=== PATIENT | female | born 1970 | race Caucasian/White ===

== ENCOUNTER 2017-06-09 13:57 | Emergency (ER) | payer OTHER ==
[~2017-06-09] VITALS: Ht 165.1 cm; Wt 145.3 kg
[2017-06-09 14:06] VITALS: TEMP 38.5; Ht 165.1 cm; Wt 145.3 kg
[2017-06-09 14:20] VITALS: O2SAT 95
[2017-06-09] MEDS ORDERED: CEFTRIAXONE SOD INJ 1 GM ADDVIAL IV STA (14:35)
[2017-06-09] MEDS ORDERED: ACETAMINOPHEN 500 MG TAB PO STA (14:35)
[2017-06-09 14:53] LABS: BASO % 0.1 %; BASO ABS # 0.01 K/uL (0-0.2); COMPLETE YES; HEMATOCRIT 37.7 % (37-47); IG% 0.3 %; LYMPH % 4.6 %; LYMPH ABS # 0.68 K/uL (1.2-3.4); MEAN CELL VOLUME 85.5 fL (80-100); MEAN CORPUSCULAR HEMOGLOBIN 28.1 pg (25-34); MEAN CORPUSCULAR HGB CONC 32.9 g/dl (32-36); MONO % 4.2 %; NEUT % 90.8 %; PLATELET COUNT 277 K/uL (130-400); RED BLOOD COUNT 4.41 M/uL (4.2-5.4); WHITE BLOOD COUNT 14.85 K/uL (4.8-10.8)
[2017-06-09 15:06] LABS: BUN/CREATININE RATIO 21.7 (10-20); CALCIUM 8.9 mg/dl (8.5-10.1); CREATININE 0.64 mg/dl (0.60-1.20); POTASSIUM 3.7 mmol/L (3.5-5.1)
--- NOTE | 2017-06-09 16:23 | DIAGNOSTIC IMAGING REPORT ---
RIGHT LOWER EXTREMITY VENOUS DOPPLER HISTORY: right leg pain and swelling COMPARISON STUDY: Venous Doppler 11/21/2013. FINDINGS: There is normal compressibility, flow, and augmentation within the right lower extremity deep venous system. A 4.3 x 2.8 x 1.5 cm popliteal cyst. IMPRESSION: No DVT within the right lower extremity Electronically signed by: Chang Goode M.D. 06/09/2017 4:22 PM Dictated Date/Time: 06/09/2017 4:15 PM
[2017-06-09] MEDS ORDERED: CEPH500C PO (16:45)
[2017-06-09] MEDS ORDERED: IBUPROFEN 600 MG TAB PO STA (16:45)
[2017-06-09 17:11] VITALS: BP 132/94; PULSE 97; O2SAT 96
--- NOTE | 2017-06-09 18:02 | EMERGENCY ROOM VISIT NOTE ---
History Report prepared by Mat: Yamil Roy Under the Supervision of: Dr. Salinas Grace M.D. First contact with patient: 14:18 Chief Complaint: SWELLING TO EXTREMITY Stated Complaint: SWOLLEN/REDNESS TG RT LEG History of Present Illness The patient is a 46 year old female who presents to the Emergency Room with complaints of right lower leg swelling that began this morning. She woke up this morning and her leg suddenly swelled and was causing her pain. Normally, her leg is not red or swollen. She denies any injury or trauma to the leg. In triage, the patient was found to be febrile. Pt denies LOC, headache, chills, diaphoresis, visual changes, neck pain, chest pain, breathing difficulties, nausea, vomiting, abdominal pain, back pain, melena, hematochezia, urinary symptoms, numbness, weakness, lymphadenopathy, rash, or other complaints. She has a family history of blood clots, but not a personal history. She does not have a PCP and denies any medical problems. She does not take any medications. She notes that she felt mildly dizzy when she came into the hospital, but she is not currently dizzy. Source of History: patient Onset: this morning Position: leg (right) Symptom Intensity: moderate Quality: other (Swelling) Timing: constant Associated Symptoms: + fevers Note: She is having some right leg pain as well. Review of Systems See HPI for pertinent positives and negatives. A total of ten systems were reviewed and were otherwise negative. Past Medical & Surgical Medical Problems: (1) Obesity Family History Blood clots Social History Smoking Status: Never Smoker Alcohol Use: none Occupation Status: employed Current/Historical Medications Scheduled Cephalexin Monohydrate (Keflex), 500 MG PO QID Allergies Coded Allergies: Penicillins (Verified Allergy, Unknown, "ACTED FUNNY" A CHILD, 06/09/17 ) Physical Exam Vital Signs Date Time Temp Pulse Resp B/P (MAP) Pulse Ox O2 Delivery O2 Flow Rate FiO2 06/09/17 17:11 97 16 132/94 96 Room Air 06/09/17 15:13 106 22 144/95 98 Room Air 06/09/17 14:20 95 Room Air 06/09/17 14:19 118 06/09/17 14:18 115 22 158/88 100 Room Air 06/09/17 14:06 38.5 115 22 153/73 96 Room Air Physical Exam GENERAL: Awake, alert, well-appearing, in no distress HENT: Normocephalic, atraumatic. Oropharynx unremarkable. EYES: Normal conjunctiva. Sclera non-icteric. NECK: Supple. No nuchal rigidity. FROM. No JVD. RESPIRATORY: Clear to auscultation. CARDIAC: Tachycardic rate, normal rhythm. Extremities warm and well perfused. Pulses equal. ABDOMEN: Soft, non-distended. No tenderness to palpation. No rebound or guarding. No masses. RECTAL: Deferred. MUSCULOSKELETAL: Chest examination reveals no tenderness. The back is symmetrical on inspection without obvious abnormality. There is no CVA tenderness to palpation. No joint edema. LOWER EXTREMITIES: There is swelling, tenderness, redness, and warmth to the right lower leg. NEURO: Normal sensorium. No sensory or motor deficits noted. SKIN: No rash or jaundice noted. Medical Decision & Procedures ER Provider Diagnostic Interpretation: Radiology results as stated below per my review and radiologist interpretation: RIGHT LOWER EXTREMITY VENOUS DOPPLER HISTORY: right leg pain and swelling COMPARISON STUDY: Venous Doppler 11/21/2013. FINDINGS: There is normal compressibility, flow, and augmentation within the right lower extremity deep venous system. A 4.3 x 2.8 x 1.5 cm popliteal cyst. IMPRESSION: No DVT within the right lower extremity Electronically signed by: Chang Goode M.D. 06/09/2017 4:22 PM Dictated Date/Time: 06/09/2017 4:15 PM Laboratory Results 06/09/17 14:20 Red Blood Count 4.41, Mean Corpuscular Volume 85.5, Mean Corpuscular Hemoglobin 28.1, Mean Corpuscular Hemoglobin Concent 32.9, Mean Platelet Volume 10.0, Neutrophils (%) (Auto) 90.8, Lymphocytes (%) (Auto) 4.6, Monocytes (%) (Auto) 4.2, Eosinophils (%) (Auto) 0.0, Basophils (%) (Auto) 0.1, Neutrophils # (Auto) 13.49, Lymphocytes # (Auto) 0.68, Monocytes # (Auto) 0.63, Eosinophils # (Auto) 0.00, Basophils # (Auto) 0.01 06/09/17 14:20 Test 06/09/17 14:20 White Blood Count 14.85 K/uL (4.8-10.8) Red Blood Count 4.41 M/uL (4.2-5.4) Hemoglobin 12.4 g/dL (12.0-16.0) Hematocrit 37.7 % (37-47) Mean Corpuscular Volume 85.5 fL (80-100) Mean Corpuscular Hemoglobin 28.1 pg (25-34) Mean Corpuscular Hemoglobin Concent 32.9 g/dl (32-36) Platelet Count 277 K/uL (130-400) Mean Platelet Volume 10.0 fL (7.4-10.4) Neutrophils (%) (Auto) 90.8 % Lymphocytes (%) (Auto) 4.6 % Monocytes (%) (Auto) 4.2 % Eosinophils (%) (Auto) 0.0 % Basophils (%) (Auto) 0.1 % Neutrophils # (Auto) 13.49 K/uL (1.4-6.5) Lymphocytes # (Auto) 0.68 K/uL (1.2-3.4) Monocytes # (Auto) 0.63 K/uL (0.11-0.59) Eosinophils # (Auto) 0.00 K/uL (0-0.5) Basophils # (Auto) 0.01 K/uL (0-0.2) RDW Standard Deviation 47.1 fL (36.4-46.3) RDW Coefficient of Variation 15.1 % (11.5-14.5) Immature Granulocyte % (Auto) 0.3 % Immature Granulocyte # (Auto) 0.04 K/uL (0.00-0.02) Anion Gap 10.0 mmol/L (3-11) Est Creatinine Clear Calc Drug Dose 163.5 ml/min Estimated GFR () 125.8 Estimated GFR (Non- 108.5 BUN/Creatinine Ratio 21.7 (10-20) Calcium Level 8.9 mg/dl (8.5-10.1) Laboratory results reviewed by me Medications Administered Medications (Trade) Dose Ordered Sig/Brady Route Start Time Stop Time Status Last Admin Dose Admin Acetaminophen (Tylenol Tab) 1,000 mg NOW STAT PO 06/09/17 14:35 06/09/17 14:37 DC 06/09/17 15:15 1,000 MG Ceftriaxone Sodium (Rocephin Inj) 1 gm NOW STAT IV 06/09/17 14:35 06/09/17 14:37 DC 06/09/17 15:15 1 GM Ibuprofen (Motrin Tab) 600 mg NOW STAT PO 06/09/17 16:45 06/09/17 16:46 DC 06/09/17 17:07 600 MG ED Course 1418: The patient was evaluated in room B12B. A complete history and physical exam was performed. 1435: Ordered Rocephin Inj 1 gm IV, Tylenol Tab 1000 mg PO 1614: Upon reevaluation, the patient is stable. 1645: Ordered Motrin Tab 600 mg PO 1652: I reevaluated the patient. Discussed results and discharge instructions: She verbalized understanding and agreement. The patient is ready for discharge. Medical Decision Triage Nursing notes reviewed and agree them. The patient's history was concerning for swelling and redness of the skin. Differential diagnosis: Etiologies such as cellulitis, DVT, necrotizing fasciitis, abscess, MRSA infection, dermatitis, drug eruption, as well as others were entertained.. Physical examination: The physical examination was consistent with cellulitis ER treatment provided: IV Rocephin Oral Tylenol On reassessment the patient felt better. Oral Motrin Diagnostics interpreted by me: The labs revealed a mild leukocytosis. Chemistry panel unremarkable. Imaging studies: Ultrasound as above. This appears to be isolated cellulitis. By the evaluation outlined above emergent etiologies such as abscess, necrotizing fasciitis, DVT, as well as others were deemed relatively unlikely. The patient and sister were informed about the findings as listed above. All questions were answered and they were pleased with the treatment. Return instructions were outlined and the patient was discharged in stable condition. Outpatient prescription management: Keflex Referral: The patient was referred to the [facility] primary clinic for follow-up as well as for establishment of primary care. Medication Reconcilliation Current Medication List: was personally reviewed by me Blood Pressure Screening Patient's blood pressure: Elevated blood pressure Blood pressure disposition: Referred to PCP Impression Primary Impression: Cellulitis of right lower extremity Scribe Attestation The scribe's documentation has been prepared under my direction and personally reviewed by me in its entirety. I confirm that the note above accurately reflects all work, treatment, procedures, and medical decision making performed by me. Departure Information Dispostion Home / Self-Care Prescriptions Cephalexin Monohydrate (Keflex) 500 Mg Cap 500 MG PO QID, #36 CAP Prov: Salinas Grace MD 06/09/17 Referrals No Doctor, Assigned (PCP) Forms HOME CARE DOCUMENTATION FORM, IMPORTANT VISIT INFORMATION, WORK / SCHOOL INSTRUCTIONS Patient Instructions My [facility] Additional Instructions CELLULITIS INSTRUCTIONS: Cephalexin(Keflex) 500mg: Take one pill four times daily for 10 days for your skin infection. All antibiotics can cause diarrhea. If this occurs and you feel worse or it does not resolve in 1-2 days follow up with your doctor or return to the Emergency Department as this could be signs of serious underlying problems. Any medication can cause an allergic reaction, stop the pills immediately and return to the ER for rash, hives, breathing difficulties, or swelling. Ibuprofen(Motrin, Advil) may be used for fever or pain. Use 600mg every six hours as needed. Take with food. Avoid using more than 2400mg in a 24 hour period. Do not use 2400mg per day for more than three consecutive days without physician direction. Prolonged inappropriate use can lead to stomach upset or ulcers. (AND/OR) Acetaminophen(Tylenol) may be used for fever or pain. Use 1000mg every six hours as needed. Avoid using more than 4000mg in a 24 hour period. Warm compresses to the affected area 4 times daily for 15-20 minutes. Rest and drink plenty of fluids. Continue current medications. Return to the ER for severe pain, persistent fevers, spreading redness, or any worsening of your condition. Follow up with the [facility] practice clinic in [place] for a recheck of the current condition and for primary care.
[2017-06-10] MEDS ORDERED: CEPH500C2 PO (20:06)
--- NOTE | 2017-06-12 12:37 | Pharmacy Progress Note ---
ED Pharmacist Culture FollowUp Date of Service: Jun 12, 2017. Patient's blood cx from 06/09 is growing Grp G strep, pansensitive. The patient was admitted to [facility] 06/10 for RLE cellulitis, fever, bacteremia; and remains an inpatient at this time. ID is following this patient, and is recommending Cefazolin which the patient is currently receiving. No further action required from ED perspective.
== END 2017-06-09 17:16 | disposition home or self-care (01) ==
LOC: C.EDB 13:59
DX: L03.115 Cellulitis of right lower limb (principal); R03.0 Elevated blood-pressure reading, without diagnosis of hypertension; E66.9 Obesity, unspecified; Z83.2 Family history of diseases of the blood and blood-forming organs and certain disorders involving the immune mechanism

== ENCOUNTER 2017-06-10 19:00 | Inpatient (IN) | payer OTHER ==
[~2017-06-10] VITALS: Ht 165.1 cm; Wt 145.6 kg
[~2017-06-10 19:00] MED LIST: CEPH500C PO
[2017-06-10] MEDS ORDERED: VANCOMYCIN 1GM/270ML NSS IV STA (19:24)
[2017-06-10] MEDS ORDERED: VANCOMYCIN INJ 2,000 MG in SODIUM CHLORIDE 0.9% 500ML 500 ML IV ONE (19:24)
[2017-06-10] MEDS ORDERED: CEPH500C2 PO (20:06)
[2017-06-10 20:15] LABS: BASO % 0.1 %; BASO ABS # 0.02 K/uL (0-0.2); COMPLETE YES; HEMATOCRIT 38.3 % (37-47); IG% 0.4 %; LYMPH % 8.2 %; LYMPH ABS # 1.77 K/uL (1.2-3.4); MEAN CELL VOLUME 84.9 fL (80-100); MEAN CORPUSCULAR HEMOGLOBIN 28.4 pg (25-34); MEAN CORPUSCULAR HGB CONC 33.4 g/dl (32-36); MEAN PLATELET VOLUME 10.3 fL (7.4-10.4); MONO % 3.4 %; NEUT % 87.9 %; PLATELET COUNT 276 K/uL (130-400); RED BLOOD COUNT 4.51 M/uL (4.2-5.4); WHITE BLOOD COUNT 21.64 K/uL (4.8-10.8)
[2017-06-10 20:25] LABS: BLOOD UREA NITROGEN 14 mg/dl (7-18); BUN/CREATININE RATIO 19.7 (10-20); CARBON DIOXIDE 25 mmol/L (21-32); CHLORIDE 104 mmol/L (98-107); CREATININE 0.73 mg/dl (0.60-1.20); GLUCOSE 106 mg/dl (70-99); POTASSIUM 3.7 mmol/L (3.5-5.1); SODIUM 137 mmol/L (136-145)
[2017-06-10] MEDS ORDERED: VANCOMYCIN INJ 1,000 MG in SODIUM CHLORIDE 0.9% 250ML 250 ML IV STA (21:23)
[2017-06-10] MEDS ORDERED: ACETAMINOPHEN 325 MG TAB PO PRN (21:30)
[2017-06-10] MEDS ORDERED: MAGNESIUM HYDROXIDE SUSP 30 ML UDC PO PRN (21:30)
[2017-06-10] MEDS ORDERED: POLYETHYLENE (MIRALAX) 17 GM PACK PO PRN (21:30)
[2017-06-10] MEDS ORDERED: ALUMINUM/MAGNESIUM/SIMETH (MAALOX MAX) 30 ML UDC PO PRN (21:30)
[2017-06-10] MEDS ORDERED: ONDANSETRON INJ 2 MG/ML 2 ML VIAL IV PRN (21:30)
--- NOTE | 2017-06-10 21:30 | History and Physical ---
History & Physical Date & Time of Service: Jun 10, 2017 at 21:27 Chief Complaint: Infection On R Leg Primary Care Physician: No Doctor, Assigned History of Present Illness Source: patient 46 yo morbidly obese woman who presents with cellulitis of the right leg. She came to the ED yesterday when she noticed multiple sores over her leg. She had a negative US for DVT. She went home and was given an Rx for Keflex. She reports today the redness worsened and big blisters formed. She returned to the ED. Dr. Preston performed an I&D on a large bullous area and had lots of drainage, but this has returned. She reports mild pain today and now some itchiness to the leg too. She denies any trauma to the leg, or tick or bug bites , the redness just started on its own. Past Medical/Surgical History Medical Problems: (1) Obesity Status: Chronic PShx None Family History Blood clots Social History Smoking Status: Never Smoker Alcohol Use: socially Drug Use: none Marital Status: in relationship Housing status: lives with family Occupational Status: employed Immunizations History of Influenza Vaccine: Unknown History of Tetanus Vaccine?: Unknown History of Pneumococcal: No History of Hepatitis B Vaccine: Unknown Multi-Drug Resistant Organisms History of MDRO: No Allergies Coded Allergies: Penicillins (Verified Allergy, Unknown, "ACTED FUNNY" A CHILD, 06/09/17 ) Home Medications Scheduled Cephalexin Monohydrate (Keflex), 500 MG PO QID Review of Systems See HPI for pertinent positives & negatives. A total of 10 systems reviewed and were otherwise negative. Physical Exam Vital Signs Date Time Temp Pulse Resp B/P (MAP) Pulse Ox O2 Delivery O2 Flow Rate FiO2 06/10/17 19:03 37.6 104 18 144/91 98 Room Air General Appearance: WD/WN, no apparent distress, + obese Head: normocephalic, atraumatic Eyes: normal inspection, PERRL ENT: hearing grossly normal Neck: supple, no JVD Respiratory/Chest: lungs clear, normal breath sounds, no respiratory distress Cardiovascular: regular rate, rhythm, no murmur, normal peripheral pulses Abdomen/GI: normal bowel sounds, non tender, soft Back: no CVA tenderness, no muscle spasm Extremities/Musculoskelatal: + pertinent finding (mild pedal edema. callouses on bottom of L foot as well.) Neurologic/Psych: alert, normal mood/affect, normal reflexes Skin: + rash (cellulitis to R lower leg, from below knee to above foot, with bullae present (large)) Diagnostics Laboratory Results Results Past 24 Hours Test 06/10/17 19:35 Range/Units White Blood Count 21.64 4.8-10.8 K/uL Red Blood Count 4.51 4.2-5.4 M/uL Hemoglobin 12.8 12.0-16.0 g/dL Hematocrit 38.3 37-47 % Mean Corpuscular Volume 84.9 80-100 fL Mean Corpuscular Hemoglobin 28.4 25-34 pg Mean Corpuscular Hemoglobin Concent 33.4 32-36 g/dl Platelet Count 276 130-400 K/uL Mean Platelet Volume 10.3 7.4-10.4 fL Neutrophils (%) (Auto) 87.9 % Lymphocytes (%) (Auto) 8.2 % Monocytes (%) (Auto) 3.4 % Eosinophils (%) (Auto) 0.0 % Basophils (%) (Auto) 0.1 % Neutrophils # (Auto) 19.02 1.4-6.5 K/uL Lymphocytes # (Auto) 1.77 1.2-3.4 K/uL Monocytes # (Auto) 0.73 0.11-0.59 K/uL Eosinophils # (Auto) 0.01 0-0.5 K/uL Basophils # (Auto) 0.02 0-0.2 K/uL RDW Standard Deviation 48.0 36.4-46.3 fL RDW Coefficient of Variation 15.5 11.5-14.5 % Immature Granulocyte % (Auto) 0.4 % Immature Granulocyte # (Auto) 0.09 0.00-0.02 K/uL Sodium Level 137 136-145 mmol/L Potassium Level 3.7 3.5-5.1 mmol/L Chloride Level 104 98-107 mmol/L Carbon Dioxide Level 25 21-32 mmol/L Anion Gap 8.0 3-11 mmol/L Blood Urea Nitrogen 14 7-18 mg/dl Creatinine 0.73 0.60-1.20 mg/dl Estimated GFR () 116.1 Estimated GFR (Non- 100.2 BUN/Creatinine Ratio 19.7 10-20 Random Glucose 106 70-99 mg/dl Calcium Level 9.0 8.5-10.1 mg/dl Chemistry Specimen Hemolysis Microbiology Results 06/10/17 Blood Culture, Received Pending Impression Assessment and Plan 46 yo obese F with R leg cellulitis with bullae formation, with failure of outpatient abx R leg cellulitis, s/p I&D drainage, with bullae formation - Pt is penicillin allergic. Will use Aztreonam & Vanco IV. - Wound care & ID consult - US completed on 06/09 ruled out DVT Pruritis to leg - Cetirizine daily PRN Code status: Full Dispo: Tele VTE: Heparin Attending addendum: I have physically seen this patient, have supervised the medical residents activities, and agree with the H&P unless as otherwise noted. Assessment and Plan: Cellulitis with large bullae formation of right lower extremity-- Vancomycin IV and aztreonam IV as noted Consult wound care Bullae will likely spontaneously rupture, therefore place on contact precautions Adriane boots when wound care can apply. No heparin for DVT prophylaxis to prevent hemorrhagic conversion Level of Care Med/Surg Advanced Directives Existing Advance Directive: No Existing Living Will: No Existing Power of Commercial Analyst: No Resuscitation Status FULL RESUSCITATION VTE Prophylaxis VTE Risk Assessment Done? Y/N: Yes Risk Level: Moderate Social Service Consult None Apply Resident Tracking Resident Involvement: Resident Care Provided Care Provided: Adult Hospital Medicine
[2017-06-10] MEDS ORDERED: CETIRIZINE HCL 10 MG TAB PO STA (21:38)
[2017-06-10] MEDS ORDERED: CETIRIZINE HCL 10 MG TAB PO PRN (21:45)
[2017-06-10] MEDS ORDERED: AZTREONAM CONSULT ACTIVE PRN ×2 (21:47)
[2017-06-10] MEDS ORDERED: VANCOMYCIN CONSULT ACTIVE PRN (22:00)
[2017-06-10] MEDS ORDERED: HEPARIN SOD 5000 UNIT/0.5 ML CARP SQ SCH (22:00)
[2017-06-10] MEDS ORDERED: PATIENT'S HEIGHT AND/OR WEIGHT NEEDED SCH (22:00)
--- NOTE | 2017-06-10 22:28 | EMERGENCY ROOM VISIT NOTE ---
History Report prepared by Mat: Jalil Mustafa Under the Supervision of: Dr. Hu Preston D.O. First contact with patient: 19:08 Chief Complaint: INFECTION Stated Complaint: INFECTION ON R LEG History of Present Illness The patient is a 46 year old female who presents to the Emergency Room with complaints of worsening right lower extremity pain that began yesterday. She rates her pain as a 10/10. The patient states that her right leg became red and painful yesterday. She reports that she also developed a fever, which caused her to report to the ED. The patient states she was discharged home and was told to return if her symptoms worsened. She reports that she woke up today and a bubble started to form around her reddened area. The patient states that throughout the day the redness began to spread up her leg, which caused her to report to the ED. Source of History: patient Onset: yesterday Position: leg (right) Symptom Intensity: 10/10 Quality: other (red and swollen) Timing: worsening Associated Symptoms: + fevers (resolved) Review of Systems See HPI for pertinent positives & negatives. A total of 10 systems reviewed and were otherwise negative. Past Medical & Surgical Medical Problems: (1) Cellulitis of right leg (2) Obesity Family History Blood clots Social History Smoking Status: Never Smoker Alcohol Use: none Occupation Status: employed Current/Historical Medications Scheduled Cephalexin Monohydrate (Keflex), 500 MG PO QID Allergies Coded Allergies: Penicillins (Verified Allergy, Unknown, "ACTED FUNNY" A CHILD, 06/09/17 ) Physical Exam Vital Signs Date Time Temp Pulse Resp B/P (MAP) Pulse Ox O2 Delivery O2 Flow Rate FiO2 06/10/17 21:42 92 18 148/71 99 Room Air 06/10/17 19:03 37.6 104 18 144/91 98 Room Air Physical Exam CONSTITUTIONAL/VITAL SIGNS: Reviewed / noted above. GENERAL: Non-toxic in appearance. INTEGUMENTARY: Warm, dry, and [place]. HEAD: Normocephalic. EYES: without scleral icterus or trauma. ENT/OROPHARYNX: clear and moist. LYMPHADENOPATHY/NECK: Is supple without lymphadenopathy or meningismus. RESPIRATORY: Lungs clear and equal. CARDIOVASCULAR: Regular rate and rhythm. GI/ABDOMEN: Soft and nontender. No organomegaly or pulsatile mass. No rebound or guarding. Normal bowel sounds. EXTREMITIES: Warm and well perfused. Extensive right leg erythema/cellulitis with a large fluid filled bullae in the right anterior lower leg. Generalized tenderness in the area. BACK: No CVA tenderness. NEUROLOGICAL: Intact without focal deficits. PSYCHIATRIC: normal affect. MUSCULOSKELETAL: Normally developed with good muscle tone. Medical Decision & Procedures Laboratory Results 06/10/17 19:35 Red Blood Count 4.51, Mean Corpuscular Volume 84.9, Mean Corpuscular Hemoglobin 28.4, Mean Corpuscular Hemoglobin Concent 33.4, Mean Platelet Volume 10.3, Neutrophils (%) (Auto) 87.9, Lymphocytes (%) (Auto) 8.2, Monocytes (%) (Auto) 3.4, Eosinophils (%) (Auto) 0.0, Basophils (%) (Auto) 0.1, Neutrophils # (Auto) 19.02, Lymphocytes # (Auto) 1.77, Monocytes # (Auto) 0.73, Eosinophils # (Auto) 0.01, Basophils # (Auto) 0.02 06/10/17 19:35 Test 06/10/17 19:35 White Blood Count 21.64 K/uL (4.8-10.8) Red Blood Count 4.51 M/uL (4.2-5.4) Hemoglobin 12.8 g/dL (12.0-16.0) Hematocrit 38.3 % (37-47) Mean Corpuscular Volume 84.9 fL (80-100) Mean Corpuscular Hemoglobin 28.4 pg (25-34) Mean Corpuscular Hemoglobin Concent 33.4 g/dl (32-36) Platelet Count 276 K/uL (130-400) Mean Platelet Volume 10.3 fL (7.4-10.4) Neutrophils (%) (Auto) 87.9 % Lymphocytes (%) (Auto) 8.2 % Monocytes (%) (Auto) 3.4 % Eosinophils (%) (Auto) 0.0 % Basophils (%) (Auto) 0.1 % Neutrophils # (Auto) 19.02 K/uL (1.4-6.5) Lymphocytes # (Auto) 1.77 K/uL (1.2-3.4) Monocytes # (Auto) 0.73 K/uL (0.11-0.59) Eosinophils # (Auto) 0.01 K/uL (0-0.5) Basophils # (Auto) 0.02 K/uL (0-0.2) RDW Standard Deviation 48.0 fL (36.4-46.3) RDW Coefficient of Variation 15.5 % (11.5-14.5) Immature Granulocyte % (Auto) 0.4 % Immature Granulocyte # (Auto) 0.09 K/uL (0.00-0.02) Anion Gap 8.0 mmol/L (3-11) Estimated GFR () 116.1 Estimated GFR (Non- 100.2 BUN/Creatinine Ratio 19.7 (10-20) Calcium Level 9.0 mg/dl (8.5-10.1) Chemistry Specimen Hemolysis Laboratory results as stated above per my review. Medications Administered Medications (Trade) Dose Ordered Sig/Brady Route Start Time Stop Time Status Last Admin Dose Admin Vancomycin HCl 2000 mg/Sodium Chloride 540 ml @ 200 mls/hr 1923 ONCE IV 06/10/17 19:24 06/10/17 22:05 DC 06/10/17 19:58 200 MLS/HR Cetirizine HCl (zyrTEC TAB) 10 mg NOW STAT PO 06/10/17 21:38 06/10/17 21:39 DC 06/10/17 21:59 10 MG Procedure Incision & Drainage Indication: Abscess. Location: Anterior right leg Verbal consent was obtained after the risks and benefits were explained, including but not limited to bleeding, scarring, infection, pain, and bone/joint /nerve damage. At this time, the risks of the procedure are less than the risks of NOT performing the procedure. A time out was taken and the correct patient and site identified. The skin was prepped with betadine and a sterile field set. The abscess cavity was entered with a number 18 gauge needle and straw- colored serous fluid material expressed. The wound was explored for foreign bodies and none found. Debridement was not performed. Packing placed and a sterile dressing applied. Detailed wound care instructions and signs and symptoms of worsening infection reviewed with the patient. No complications and the patient tolerated the procedure well. ED Course 1909: Previous medical records were reviewed. The patient was evaluated in room B02. A complete history and physical examination was performed. 1911: I performed an abscess incision and drainage. See procedure notes for further details. 1923: Ordered Vancomycin HCl 2000 mg/Sodium Chloride 540 ml @ 200 mls/hr IV. 2109: I discussed the patient's case with Dr. Luna [facility] Hospitalist. He understands the patient's condition and agrees to accept the patient. The patient will be further evaluated. Medical Decision Differential diagnosis etiologies such as cellulitis, abscess, MRSA infection, DVT, necrotizing fasciitis, dermatitis, drug eruption, as well as others were entertained.. This is a 46-year-old female who was seen yesterday for the same condition. The patient was diagnosed with cellulitis of the right lower extremity. She was started on antibiotics. She was told to return if her symptoms worsen. She has developed a large bulla on the right anterior leg and she reports that the redness has increased substantially since yesterday. She is not having any systemic symptoms such as fevers, riders or vomiting. Exam is noted above. She has diffuse erythema to the right lower extremity. This extends up to the knee area. She has a large bulla that was drained for a straw-colored serous fluid. The patient was started on IV vancomycin. Her white blood cell count was 20,000. Chemistry panel was unremarkable. She will be seen by the hospitalist for further inpatient evaluation and care. Medication Reconcilliation Current Medication List: was personally reviewed by me Blood Pressure Screening Patient's blood pressure: Elevated blood pressure Blood pressure disposition: Referred to PCP Consults Time Called: 2109 Consulting Physician: Dr. Luna [facility] Hospitalist Returned Call: 2109 I discussed the patient's case with Dr. Luna [facility] Hospitalist. He understands the patient's condition and agrees to accept the patient. The patient will be further evaluated. Impression Primary Impression: Cellulitis of right lower extremity Scribe Attestation The scribe's documentation has been prepared under my direction and personally reviewed by me in its entirety. I confirm that the note above accurately reflects all work, treatment, procedures, and medical decision making performed by me. Departure Information Dispostion Being Evaluated By Hospitalist Referrals No Doctor, Assigned (PCP) Patient Instructions My [facility]
[2017-06-10 22:50] VITALS: BP 167/99; PULSE 99; TEMP 39; O2SAT 100; Ht 165.1 cm; Wt 145.6 kg
[2017-06-10] MEDS ORDERED: INFLUENZA ADMINISTRATION CHARGE ONE (23:15)
[2017-06-10] MEDS ORDERED: INFLUENZA VIRUS QUAD VACCINE 0.5 ML SYR IM. ONE (23:15)
[2017-06-10] MEDS: OXYCODONE/ACETAMINOPHEN 5-325 TAB PO PRN (23:21)
[2017-06-10] MEDS: AZTREONAM IV 2,000 MG in DEXTROSE 5% 100ML 100 ML IV SCH (23:26)
[2017-06-11] VITALS (7 sets, daily range): BP systolic 111–133; BP diastolic 71–84; PULSE 81–95; TEMP 36.8–37.1; O2SAT 92–100
[2017-06-11] MEDS: VANCOMYCIN INJ 2,000 MG in SODIUM CHLORIDE 0.9% 500ML 500 ML IV SCH ×2 (02:02→09:24)
[2017-06-11] MEDS: AZTREONAM IV 2,000 MG in DEXTROSE 5% 100ML 100 ML IV SCH (05:29)
[2017-06-11] MEDS: OXYCODONE/ACETAMINOPHEN 5-325 TAB PO PRN ×4 (05:45→20:55)
[2017-06-11 07:51] LABS: INR 1.3 (0.9-1.1); PROTHROMBIN TIME (PATIENT) 13.8 SECONDS (9.0-12.0)
[2017-06-11 08:12] LABS: CREATININE 0.61 mg/dl (0.60-1.20)
[2017-06-11 08:59] LABS: BASO % 0.1 %; BASO ABS # 0.01 K/uL (0-0.2); COMPLETE YES; EOS % 0.5 %; HEMATOCRIT 36.7 % (37-47); IG% 0.3 %; LYMPH ABS # 1.59 K/uL (1.2-3.4); MEAN CORPUSCULAR HEMOGLOBIN 27.5 pg (25-34); MEAN CORPUSCULAR HGB CONC 32.4 g/dl (32-36); MEAN PLATELET VOLUME 9.6 fL (7.4-10.4); MONO % 4.2 %; NEUT % 83.9 %; PLATELET COUNT 232 K/uL (130-400); RED BLOOD COUNT 4.32 M/uL (4.2-5.4); WHITE BLOOD COUNT 14.47 K/uL (4.8-10.8)
--- NOTE | 2017-06-11 10:49 | Pharmacy Progress Note ---
Pharmacy Abx Initial Consult Date of Service Jun 11, 2017. Pharmacy Dosing Scope Date of Consult: 06/10/17 Consultation requested by: Dr. Hernandez Pharmacy is consulted to initiate Vancomycin IV dosing therapy, order appropriate labs and adjust drug dose/frequency. Subjective The patient is a 46 year old female admitted on Jun 10, 2017 at 21:27. Objective Height (Feet): 5 Height (Inches): 5.00 Weight (Kilograms): 145.600 Vital Signs (Past 12Hrs) Vital Signs Past 12 Hours Date Time Temp Pulse Resp B/P (MAP) Pulse Ox O2 Delivery O2 Flow Rate FiO2 06/11/17 08:00 Room Air 06/11/17 07:41 36.9 95 16 126/73 (90) 95 06/11/17 04:15 36.8 83 18 133/71 (91) 93 Room Air 06/11/17 04:00 100 Room Air 06/11/17 00:00 100 Room Air 06/10/17 22:50 39.0 99 24 167/99 100 Room Air Lab Results (24Hrs) Laboratory Tests (24 Hours) Test 06/11/17 08:42 White Blood Count 14.47 K/uL (4.8-10.8) H Red Blood Count 4.32 M/uL (4.2-5.4) Hemoglobin 11.9 g/dL (12.0-16.0) L Hematocrit 36.7 % (37-47) L Mean Corpuscular Volume 85.0 fL (80-100) Mean Corpuscular Hemoglobin 27.5 pg (25-34) Mean Corpuscular Hemoglobin Concent 32.4 g/dl (32-36) Platelet Count 232 K/uL (130-400) Mean Platelet Volume 9.6 fL (7.4-10.4) Neutrophils (%) (Auto) 83.9 % Lymphocytes (%) (Auto) 11.0 % Monocytes (%) (Auto) 4.2 % Eosinophils (%) (Auto) 0.5 % Basophils (%) (Auto) 0.1 % Neutrophils # (Auto) 12.15 K/uL (1.4-6.5) H Lymphocytes # (Auto) 1.59 K/uL (1.2-3.4) Monocytes # (Auto) 0.61 K/uL (0.11-0.59) H Eosinophils # (Auto) 0.07 K/uL (0-0.5) Basophils # (Auto) 0.01 K/uL (0-0.2) Micro Results Date/Time Source Procedure Growth Status 06/11/17 08:42 Blood Blood Culture Pending Received 06/11/17 08:34 Blood Blood Culture Pending Received 06/10/17 19:35 Blood Blood Culture Pending Received 06/11/17 05:41 Nasal MRSA DNA Surveillance Screen Pending Received Assessment & Plan Assessment 46 year old female with morbid obesity and blisters rupturing with drainage on the right leg suggesting infection. Plan Vancomycin for treatment of Right leg Cellulitis. Vancomycin IV * Vanco 2000 mg (13.7mg/kg) was given in the ED at 19:58 yesterday but this cannot technically be called a loading dose since it was only 13.7 mg/kg. * Therefore a maintenance dose of Vanco 2000 mg IV every 8 hours was started soon after only a couple of hours after the initial dose, at 02:00. * Goal trough level for Cellulitis: 12 to 18 mcg/mL * Trough Vanco level ordered for 06/11/17 at 1730 today. * This level will not be at steady state since it will be drawn only after 2 maintenance doses. * Patient's BMI = 53 mg/kg/m2, which means she can accumulate Vancomycin at normal doses; hence we're checking the trough sooner than later. Pharmacy will continue to follow and will adjust dose/frequency as necessary. Thank you.
--- NOTE | 2017-06-11 15:05 | Hospitalist Progress Note ---
Hospitalist Progress Note Date of Service Jun 11, 2017. Subjective Pt evaluation today including: conversation w/ patient, conversation w/ family , lab review, conversation w/ revenue cycle consultant (ID Dr. Murphy), review of inpatient medication list Pt has pain in right leg, otherwise no complaints. Had fever yesterday, none since then. Constitutional: + fever Eyes: No problem reported ENT: No problem reported Respiratory: No shortness of breath Cardiovascular: No chest pain Abdomen: No pain, No nausea, No vomiting, No diarrhea, No constipation Female : No problem reported Neurologic: No problem reported Psychiatric: No problem reported Heme: No problem reported Endo: No problem reported All Other Systems: Reviewed and Negative Objective Vital Signs Date Time Temp Pulse Resp B/P (MAP) Pulse Ox O2 Delivery O2 Flow Rate FiO2 06/11/17 12:00 Room Air 06/11/17 11:06 36.9 81 18 124/74 (91) 94 Room Air 06/11/17 08:00 Room Air 06/11/17 07:41 36.9 95 16 126/73 (90) 95 06/11/17 04:15 36.8 83 18 133/71 (91) 93 Room Air 06/11/17 04:00 100 Room Air 06/11/17 00:00 100 Room Air 06/10/17 22:50 39.0 99 24 167/99 100 Room Air 06/10/17 21:42 92 18 148/71 99 Room Air 06/10/17 19:03 37.6 104 18 144/91 98 Room Air Physical Exam General Appearance: no apparent distress, + obese Eyes: normal inspection, sclerae normal ENT: hearing grossly normal, pharynx normal Neck: trachea midline Respiratory/Chest: lungs clear, normal breath sounds, no respiratory distress, no accessory muscle use Cardiovascular: regular rate, rhythm, no edema, no gallop, no murmur Abdomen: normal bowel sounds, non tender, soft (and obese) Extremities: + pertinent finding (right lateral leg with large fluid-filled blister,constantly seeping serous fluid onto chux pad underneath, anterior right leg with dark, blanching erythema to the knee and also encompasses dorsal foot, 1+ nonpitting edema) Neurologic/Psychiatric: alert, normal mood/affect, oriented x 3 Skin: + pertinent finding (as above) Laboratory Results Last 24 Hours Test 06/10/17 19:35 06/11/17 07:07 06/11/17 08:42 White Blood Count 21.64 K/uL 14.47 K/uL Red Blood Count 4.51 M/uL 4.32 M/uL Hemoglobin 12.8 g/dL 11.9 g/dL Hematocrit 38.3 % 36.7 % Mean Corpuscular Volume 84.9 fL 85.0 fL Mean Corpuscular Hemoglobin 28.4 pg 27.5 pg Mean Corpuscular Hemoglobin Concent 33.4 g/dl 32.4 g/dl Platelet Count 276 K/uL 232 K/uL Mean Platelet Volume 10.3 fL 9.6 fL Neutrophils (%) (Auto) 87.9 % 83.9 % Lymphocytes (%) (Auto) 8.2 % 11.0 % Monocytes (%) (Auto) 3.4 % 4.2 % Eosinophils (%) (Auto) 0.0 % 0.5 % Basophils (%) (Auto) 0.1 % 0.1 % Neutrophils # (Auto) 19.02 K/uL 12.15 K/uL Lymphocytes # (Auto) 1.77 K/uL 1.59 K/uL Monocytes # (Auto) 0.73 K/uL 0.61 K/uL Eosinophils # (Auto) 0.01 K/uL 0.07 K/uL Basophils # (Auto) 0.02 K/uL 0.01 K/uL RDW Standard Deviation 48.0 fL 49.0 fL RDW Coefficient of Variation 15.5 % 15.7 % Immature Granulocyte % (Auto) 0.4 % 0.3 % Immature Granulocyte # (Auto) 0.09 K/uL 0.04 K/uL Sodium Level 137 mmol/L Potassium Level 3.7 mmol/L Chloride Level 104 mmol/L Carbon Dioxide Level 25 mmol/L Anion Gap 8.0 mmol/L Blood Urea Nitrogen 14 mg/dl Creatinine 0.73 mg/dl 0.61 mg/dl Estimated GFR () 116.1 127.8 Estimated GFR (Non- 100.2 110.3 BUN/Creatinine Ratio 19.7 Random Glucose 106 mg/dl Calcium Level 9.0 mg/dl Chemistry Specimen Hemolysis Prothrombin Time 13.8 SECONDS Prothromb Time International Ratio 1.3 Est Creatinine Clear Calc Drug Dose 171.7 ml/min Assessment and Plan This pt is a 46 yo obese female with R leg cellulitis with bulla formation, with failure of outpatient abx. Also with fever, tachycardia, sepsis, and Group G beta Strep bacteremia. R leg cellulitis, with bulla formation,Sepsis, Group G beta Strep bacteremia.- Doppler RLE neg for DVT - Pt is penicillin allergic. Was initially started on Aztreonam & Vanco IV, but BCxs from 06/09 were growing Group G beta Strep--> ID recommended switching to Ancef -check CT leg for deep tissue infection - Wound care consult pending-may need debridement of blister and appreciate wound care recommendations -elevate leg - Cetirizine daily PRN pruritus -follow repeat BCxs -Appreciate ID consultation Code status: Full VTE: Heparin Dispo: ok to move to medical, only mild sinus tach on tele
[2017-06-11] MEDS ORDERED: [UNRECOGNIZED DRUG - REMARK] PRN (15:15)
--- NOTE | 2017-06-11 15:27 | DIAGNOSTIC IMAGING REPORT ---
RIGHT LOWER LEG AND FOOT CT CT DOSE: 373.95 mGy.cm HISTORY: right leg cellulitis, r/o abscess, knee to toes TECHNIQUE: Multiaxial CT images of the right lower leg and foot were performed and reformatted in the sagittal and coronal plane following the use of intravenous contrast. A dose lowering technique was utilized adhering to the principles of ALARA. COMPARISON: None. FINDINGS: Small knee effusion and a small popliteal cyst. Extensive diffuse subcutaneous edema seen throughout the right lower leg, most pronounced at the dorsum of the foot. There is no deep soft tissue edema. No fracture or dislocation within the visualized osseous structures the right lower leg or foot. No bony destruction to suggest osteomyelitis. No loculated fluid collections to suggest an abscess. A few large skin blisters within the mid to distal lower leg. Dominant skin blisters measures approximately 6.1 cm. IMPRESSION: 1. Extensive diffuse subcutaneous edema throughout the right lower leg and right foot. No deep soft tissue edema. 2. No loculated fluid collections to suggest an abscess. 3. No evidence for osteomyelitis. 4. A few large skin blisters within the mid to distal lower leg. Electronically signed by: Chang Goode M.D. 06/11/2017 3:26 PM Dictated Date/Time: 06/11/2017 3:21 PM
[2017-06-11] MEDS: CEFAZOLIN IV 2,000 MG in SYRINGE 0 ML IV SCH ×2 (15:43→21:56)
--- NOTE | 2017-06-11 16:40 | Medical Consult ---
Consultation Date of Consultation: Jun 11, 2017. Attending Physician: Janneth Colvin MD Reason for Consultation: Right leg cellulitis with bullae History of Present Illness 46-year-old female with history of obesity but otherwise in good health, was well until several days ago when she noted onset of right lower leg redness and swelling with increasing pain. Came to the emergency department yesterday, was given cephalexin for cellulitis, but symptoms worsened and patient returned and was admitted today for further management. Has developed multiple bullae of the right lower leg. Blood cultures from yesterday now growing a group G Streptococcus. Patient currently being treated with vancomycin. She has had some fever and chills. Pain in right leg currently 7/10 in intensity. Has vague history of penicillin allergy. Past Medical/Surgical History Medical Problems: (1) Cellulitis of right lower extremity Status: Acute (2) Encounter for wound re-check Status: Acute (3) Ingrowing toenail with infection Status: Acute (4) Obesity Status: Chronic Medical Problems: (1) Cellulitis of right leg (2) Obesity Family History Blood clots Social History Smoking Status: Never Smoker Alcohol Use: socially Drug Use: none Marital Status: in relationship Occupation Status: employed Allergies Coded Allergies: Penicillins (Verified Allergy, Unknown, "[employer]ED [employer]" A CHILD, 06/09/17 ) Current Inpatient Medications Current Inpatient Medications Medications (Trade) Dose Ordered Sig/Brady Route Start Time Stop Time Status Last Admin Dose Admin Acetaminophen (Tylenol Tab) 650 mg Q4H PRN PO 06/10/17 21:30 07/10/17 21:29 Al Hydrox/Mg Hydrox/Simethicone (Maalox Max Susp) 15 ml Q4H PRN PO 06/10/17 21:30 07/10/17 21:29 Magnesium Hydroxide (Milk Of Magnesia Susp) 30 ml Q12H PRN PO 06/10/17 21:30 07/10/17 21:29 Ondansetron HCl (Zofran Inj) 4 mg Q6H PRN IV 06/10/17 21:30 07/10/17 21:29 Polyethylene (Miralax Powder Packet) 17 gm DAILY PRN PO 06/10/17 21:30 07/10/17 21:29 Cetirizine HCl (zyrTEC TAB) 10 mg QAM PRN PO 06/10/17 21:45 07/10/17 21:44 06/11/17 05:52 10 MG Oxycodone/ Acetaminophen (Percocet 5-325mg Tab) 1 tab Q4H PRN PO 06/10/17 23:00 06/24/17 22:59 06/11/17 15:43 1 TAB Cefazolin Sodium 2000 mg/Syringe 10 ml @ 150 mls/hr Q6H IV 06/11/17 16:00 06/21/17 15:59 06/11/17 15:43 150 MLS/HR Miscellaneous Information 1 ea UD PRN N/A 06/11/17 15:15 07/11/17 15:14 Heparin Sodium (Porcine) (Heparin Sq 5000 Unit/0.5ml) 5,000 unit Q8 SQ 06/11/17 22:00 07/11/17 21:59 Review of Systems All systems were reviewed and are negative except as per HPI Physical Exam Date Time Temp Pulse Resp B/P (MAP) Pulse Ox O2 Delivery O2 Flow Rate FiO2 06/11/17 15:19 37.0 82 18 111/71 (84) 96 06/11/17 12:00 Room Air 06/11/17 11:06 36.9 81 18 124/74 (91) 94 Room Air 06/11/17 08:00 Room Air 06/11/17 07:41 36.9 95 16 126/73 (90) 95 06/11/17 04:15 36.8 83 18 133/71 (91) 93 Room Air 06/11/17 04:00 100 Room Air 06/11/17 00:00 100 Room Air 06/10/17 22:50 39.0 99 24 167/99 100 Room Air 06/10/17 21:42 92 18 148/71 99 Room Air 06/10/17 19:03 37.6 104 18 144/91 98 Room Air General Appearance: WD/WN, no apparent distress, + obese Head: normocephalic, atraumatic Eyes: normal inspection, EOMI, sclerae normal ENT: normal ENT inspection, hearing grossly normal, pharynx normal Neck: supple, no adenopathy, thyroid normal, trachea midline Respiratory/Chest: chest non-tender, lungs clear, normal breath sounds, no respiratory distress Cardiovascular: regular rate, rhythm, no gallop, no murmur Abdomen/GI: normal bowel sounds, non tender, soft, no organomegaly Back: normal inspection, no CVA tenderness Extremities/Musculoskelatal: no calf tenderness, normal capillary refill, + inflammation ( right leg), + swelling ( right leg) Neurologic/Psych: alert, oriented x 3 Skin: normal color, no rash, + pertinent finding ( right leg cellulitis with several large flaccid bullae) Lymphatic: no adenopathy Laboratory Results Date/Time Source Procedure Growth Status 06/11/17 08:42 Blood Blood Culture Pending Received 06/11/17 08:34 Blood Blood Culture Pending Received 06/10/17 19:35 Blood Blood Culture Pending Received 06/11/17 05:41 Nasal MRSA DNA Surveillance Screen - Final Specimen Negative for MRSA by DNA Probe Complete Last 24 Hours Test 06/10/17 19:35 06/11/17 07:07 06/11/17 08:42 White Blood Count 21.64 K/uL 14.47 K/uL Red Blood Count 4.51 M/uL 4.32 M/uL Hemoglobin 12.8 g/dL 11.9 g/dL Hematocrit 38.3 % 36.7 % Mean Corpuscular Volume 84.9 fL 85.0 fL Mean Corpuscular Hemoglobin 28.4 pg 27.5 pg Mean Corpuscular Hemoglobin Concent 33.4 g/dl 32.4 g/dl Platelet Count 276 K/uL 232 K/uL Mean Platelet Volume 10.3 fL 9.6 fL Neutrophils (%) (Auto) 87.9 % 83.9 % Lymphocytes (%) (Auto) 8.2 % 11.0 % Monocytes (%) (Auto) 3.4 % 4.2 % Eosinophils (%) (Auto) 0.0 % 0.5 % Basophils (%) (Auto) 0.1 % 0.1 % Neutrophils # (Auto) 19.02 K/uL 12.15 K/uL Lymphocytes # (Auto) 1.77 K/uL 1.59 K/uL Monocytes # (Auto) 0.73 K/uL 0.61 K/uL Eosinophils # (Auto) 0.01 K/uL 0.07 K/uL Basophils # (Auto) 0.02 K/uL 0.01 K/uL RDW Standard Deviation 48.0 fL 49.0 fL RDW Coefficient of Variation 15.5 % 15.7 % Immature Granulocyte % (Auto) 0.4 % 0.3 % Immature Granulocyte # (Auto) 0.09 K/uL 0.04 K/uL Sodium Level 137 mmol/L Potassium Level 3.7 mmol/L Chloride Level 104 mmol/L Carbon Dioxide Level 25 mmol/L Anion Gap 8.0 mmol/L Blood Urea Nitrogen 14 mg/dl Creatinine 0.73 mg/dl 0.61 mg/dl Estimated GFR () 116.1 127.8 Estimated GFR (Non- 100.2 110.3 BUN/Creatinine Ratio 19.7 Random Glucose 106 mg/dl Calcium Level 9.0 mg/dl Chemistry Specimen Hemolysis Prothrombin Time 13.8 SECONDS Prothromb Time International Ratio 1.3 Est Creatinine Clear Calc Drug Dose 171.7 ml/min Assessment & Plan severe right lower extremity cellulitis associated with group G streptococcal bacteremia in otherwise healthy female. Have recommended changed to IV cefazolin for now, may change to IV ceftriaxone if patient improves an outpatient therapy required. Patient will need 7-10 days of IV antibiotics given positive blood cultures. Will follow.
[2017-06-11] MEDS ORDERED: VANCOMYCIN TROUGH ONE (17:30)
[2017-06-11] MEDS ORDERED: NURSING VERBAL MED ORDER ONE (20:30)
[2017-06-11] MEDS: HEPARIN SOD 5000 UNIT/0.5 ML CARP SQ SCH (22:04)
[2017-06-12] MEDS: CEFAZOLIN IV 2,000 MG in SYRINGE 0 ML IV SCH ×4 (03:45→21:58)
[2017-06-12] MEDS: OXYCODONE/ACETAMINOPHEN 5-325 TAB PO PRN ×3 (03:46→23:42)
[2017-06-12 05:47] LABS: BASO % 0.1 %; BASO ABS # 0.01 K/uL (0-0.2); COMPLETE YES; EOS % 1.3 %; HEMATOCRIT 32.7 % (37-47); IG% 0.2 %; LYMPH % 16.6 %; LYMPH ABS # 1.66 K/uL (1.2-3.4); MEAN CELL VOLUME 85.2 fL (80-100); MEAN CORPUSCULAR HEMOGLOBIN 27.6 pg (25-34); MEAN CORPUSCULAR HGB CONC 32.4 g/dl (32-36); MEAN PLATELET VOLUME 9.6 fL (7.4-10.4); MONO % 6.6 %; NEUT % 75.2 %; PLATELET COUNT 249 K/uL (130-400); RED BLOOD COUNT 3.84 M/uL (4.2-5.4); WHITE BLOOD COUNT 9.97 K/uL (4.8-10.8)
[2017-06-12] MEDS: HEPARIN SOD 5000 UNIT/0.5 ML CARP SQ SCH ×3 (05:50→21:58)
[2017-06-12 06:25] LABS: BUN/CREATININE RATIO 24.3 (10-20); CALCIUM 8.2 mg/dl (8.5-10.1); CREATININE 0.71 mg/dl (0.60-1.20); POTASSIUM 3.5 mmol/L (3.5-5.1)
[2017-06-12 07:40] VITALS: BP 145/81; PULSE 83; TEMP 36.8; O2SAT 98
--- NOTE | 2017-06-12 11:49 | Family Medicine Progress Note ---
Progress Note Date of Service Jun 12, 2017. Subjective Pt evaluation today including: conversation w/ patient, physical exam, chart review, lab review, review of studies Pain: Mild tenderness with palpation of right lower extremity over blisters Voiding: no voiding problems, no incontinence Patient is resting comfortably in bed this morning with no acute complaints. She states that the proximal aspect of the wound has improved but not the distal aspect over the foot has become more erythematous. Denies any fevers or chills and states the redness in her leg has substantially improved. Still having some mild tenderness with palpation of right lower extremity where blistering is located. Constitutional: No fever, No chills, No fatigue Respiratory: No cough, No sputum, No wheezing, No shortness of breath Cardiovascular: No chest pain, No edema, No palpitations Abdomen: No pain, No nausea, No vomiting, No diarrhea Musculoskeletal: + swelling Neurologic: No paralysis, No weakness, No numbness/tingling Skin: + rash, + new/changing skin lesions, + problem reported (drainage from open blister on skin) Medications Current Inpatient Medications Medications (Trade) Dose Ordered Sig/Brady Route Start Time Stop Time Status Last Admin Dose Admin Acetaminophen (Tylenol Tab) 650 mg Q4H PRN PO 06/10/17 21:30 07/10/17 21:29 Al Hydrox/Mg Hydrox/Simethicone (Maalox Max Susp) 15 ml Q4H PRN PO 06/10/17 21:30 07/10/17 21:29 Magnesium Hydroxide (Milk Of Magnesia Susp) 30 ml Q12H PRN PO 06/10/17 21:30 07/10/17 21:29 Ondansetron HCl (Zofran Inj) 4 mg Q6H PRN IV 06/10/17 21:30 07/10/17 21:29 Polyethylene (Miralax Powder Packet) 17 gm DAILY PRN PO 06/10/17 21:30 07/10/17 21:29 Cetirizine HCl (zyrTEC TAB) 10 mg QAM PRN PO 06/10/17 21:45 07/10/17 21:44 06/11/17 05:52 10 MG Oxycodone/ Acetaminophen (Percocet 5-325mg Tab) 1 tab Q4H PRN PO 06/10/17 23:00 06/24/17 22:59 06/12/17 03:46 1 TAB Cefazolin Sodium 2000 mg/Syringe 10 ml @ 150 mls/hr Q6H IV 06/11/17 16:00 06/21/17 15:59 06/12/17 09:39 150 MLS/HR Miscellaneous Information 1 ea UD PRN N/A 06/11/17 15:15 07/11/17 15:14 Heparin Sodium (Porcine) (Heparin Sq 5000 Unit/0.5ml) 5,000 unit Q8 SQ 06/11/17 22:00 07/11/17 21:59 06/12/17 05:50 5,000 UNIT Diphenhydramine HCl (Benadryl Cap) 25 mg Q4H PRN PO 06/11/17 20:30 07/11/17 20:29 06/11/17 20:55 25 MG Objective Vital Signs Date Time Temp Pulse Resp B/P (MAP) Pulse Ox O2 Delivery O2 Flow Rate FiO2 06/12/17 08:30 Room Air 06/12/17 07:40 36.8 83 18 145/81 (102) 98 06/12/17 00:00 Room Air 06/11/17 23:47 37.1 84 18 125/84 (98) 92 Room Air 06/11/17 16:00 Room Air 06/11/17 15:19 37.0 82 18 111/71 (84) 96 06/11/17 12:00 Room Air Physical Exam General Appearance: WD/WN, no apparent distress Respiratory/Chest: chest non-tender, lungs clear, normal breath sounds, no respiratory distress, no accessory muscle use Cardiovascular: regular rate, rhythm, no edema, no gallop Abdomen: normal bowel sounds, non tender, soft Extremities: no calf tenderness, + pedal edema, + pertinent finding (Dressing over the right lower extremity is c/d/i. Mild clear drainage from open blister over the lateral aspect of the right tibial region. Erythema has significantly improved over the proximal border drawn. Mild erythema now over the foot that the patient states has progressed.) Neurologic/Psychiatric: alert, normal mood/affect, oriented x 3 Laboratory Results Results Past 24 Hours Test 06/12/17 05:02 Range/Units White Blood Count 9.97 4.8-10.8 K/uL Red Blood Count 3.84 4.2-5.4 M/uL Hemoglobin 10.6 12.0-16.0 g/dL Hematocrit 32.7 37-47 % Mean Corpuscular Volume 85.2 80-100 fL Mean Corpuscular Hemoglobin 27.6 25-34 pg Mean Corpuscular Hemoglobin Concent 32.4 32-36 g/dl Platelet Count 249 130-400 K/uL Mean Platelet Volume 9.6 7.4-10.4 fL Neutrophils (%) (Auto) 75.2 % Lymphocytes (%) (Auto) 16.6 % Monocytes (%) (Auto) 6.6 % Eosinophils (%) (Auto) 1.3 % Basophils (%) (Auto) 0.1 % Neutrophils # (Auto) 7.49 1.4-6.5 K/uL Lymphocytes # (Auto) 1.66 1.2-3.4 K/uL Monocytes # (Auto) 0.66 0.11-0.59 K/uL Eosinophils # (Auto) 0.13 0-0.5 K/uL Basophils # (Auto) 0.01 0-0.2 K/uL RDW Standard Deviation 50.1 36.4-46.3 fL RDW Coefficient of Variation 16.0 11.5-14.5 % Immature Granulocyte % (Auto) 0.2 % Immature Granulocyte # (Auto) 0.02 0.00-0.02 K/uL Sodium Level 138 136-145 mmol/L Potassium Level 3.5 3.5-5.1 mmol/L Chloride Level 106 98-107 mmol/L Carbon Dioxide Level 24 21-32 mmol/L Anion Gap 8.0 3-11 mmol/L Blood Urea Nitrogen 17 7-18 mg/dl Creatinine 0.71 0.60-1.20 mg/dl Est Creatinine Clear Calc Drug Dose 147.6 ml/min Estimated GFR () 120.1 Estimated GFR (Non- 103.6 BUN/Creatinine Ratio 24.3 10-20 Random Glucose 87 70-99 mg/dl Calcium Level 8.2 8.5-10.1 mg/dl Assessment and Plan This pt is a 46 yo obese female with R leg cellulitis with bulla formation, with failure of outpatient abx. Also with fever, tachycardia, sepsis, and Group G beta Strep bacteremia. Right leg cellulitis, with bulla formation,Sepsis, Group G beta Strep bacteremia.- Doppler RLE neg for DVT - Day 2 of Antibiotic Therapy - Ancef q6h dosing - Switch to Rocephin 2gm IV qDaily tomorrow - Will discuss ultrasound guided peripheral line with IV team tomorrow once insurance authorization for home antibiotic use is approved - As per ID will require IV antibiotic therapy until June 19 - Pt is penicillin allergic. Was initially started on Aztreonam & Vanco IV, but BCxs from 06/09 were growing Group G beta Strep--> ID recommended switching to Ancef - Leg CT - No deep soft tissue edema --> Extensive diffuse subcutaneous edema throughout the right lower leg and right foot, No loculated fluid collections to suggest an abscess, No evidence for osteomyelitis. - Wound care consult pending - May need debridement of blister and appreciate wound care recommendations - Elevate leg - Cetirizine daily PRN pruritus - Repeat Blood Culture Pending - Appreciate ID consultation Code status: Full VTE: Heparin Dispo: General Medical Floor - Reviewed: Pt Seen/Exam by Me History Resident Physician Supervision Note: I interviewed and examined the patient. Discussed with Dr. Patel and agree with findings and plan as documented in the note. Any exceptions or clarifications are listed here: Pt feeling better but concerned about foot being more swollen today. No other concerns. Afebrile except low grade temp Vitals reviewed Obese RRR no mgr CTAB no wcr Ext: right leg with kerlix dressing on not removed, prox leg with erythema slightly improved, right foot 3+ edema, some erythema dorsum of foot 46 yo female with RLE cellulitis, bulla, Group G beta Strep bacteremia POA, sepsis-improving. Increased edema and erythema in foot from dependence/gravity -ADVISED ELEVATION OF LEG ABOVE HEART AND D/W PT AND RN -ID WANTS TO CONTINUE ANCEF FOR NOW, WILL NOT START ROCEPHIN YET -AWAIT INSURANCE APPROVAL FOR HOME IV ABX AND THEN WILL NEED US-GUIDED PIV OR PICC Documented By: Janneth Colvin
[2017-06-12 15:27] VITALS: BP 146/80; PULSE 84; TEMP 36.9; O2SAT 99
[2017-06-12 16:00] VITALS: O2SAT 99
[2017-06-12 20:06] VITALS: BP 146/75; PULSE 81; TEMP 37.8; O2SAT 96
--- NOTE | 2017-06-12 20:13 | Infectious Disease Progress Nt ---
Progress Note Date of Service Jun 12, 2017. Subjective Pt evaluation today including: conversation w/ patient, conversation w/ family , physical exam, chart review, lab review, review of studies, conversation w/ production support consultant, review of inpatient medication list still complaining of significant pain in her leg and foot. Appears to be tolerating antibiotic without apparent difficulty. Currently afebrile, hemodynamically stable. CT scan shows no obvious deep infection. All Other Systems: Reviewed and Negative Medications Current Inpatient Medications Medications (Trade) Dose Ordered Sig/Brady Route Start Time Stop Time Status Last Admin Dose Admin Acetaminophen (Tylenol Tab) 650 mg Q4H PRN PO 06/10/17 21:30 07/10/17 21:29 Al Hydrox/Mg Hydrox/Simethicone (Maalox Max Susp) 15 ml Q4H PRN PO 06/10/17 21:30 07/10/17 21:29 Magnesium Hydroxide (Milk Of Magnesia Susp) 30 ml Q12H PRN PO 06/10/17 21:30 07/10/17 21:29 Ondansetron HCl (Zofran Inj) 4 mg Q6H PRN IV 06/10/17 21:30 07/10/17 21:29 Polyethylene (Miralax Powder Packet) 17 gm DAILY PRN PO 06/10/17 21:30 07/10/17 21:29 Cetirizine HCl (zyrTEC TAB) 10 mg QAM PRN PO 06/10/17 21:45 07/10/17 21:44 06/11/17 05:52 10 MG Oxycodone/ Acetaminophen (Percocet 5-325mg Tab) 1 tab Q4H PRN PO 06/10/17 23:00 06/24/17 22:59 06/12/17 16:21 1 TAB Cefazolin Sodium 2000 mg/Syringe 10 ml @ 150 mls/hr Q6H IV 06/11/17 16:00 06/13/17 01:00 06/12/17 16:25 150 MLS/HR Miscellaneous Information 1 ea UD PRN N/A 06/11/17 15:15 07/11/17 15:14 Heparin Sodium (Porcine) (Heparin Sq 5000 Unit/0.5ml) 5,000 unit Q8 SQ 06/11/17 22:00 07/11/17 21:59 06/12/17 13:38 5,000 UNIT Diphenhydramine HCl (Benadryl Cap) 25 mg Q4H PRN PO 06/11/17 20:30 07/11/17 20:29 06/12/17 19:02 25 MG Ceftriaxone Sodium 2000 mg/ Dextrose 70 ml @ 100 mls/hr Q24H IV 06/13/17 08:00 06/19/17 08:01 Objective Vital Signs Date Time Temp Pulse Resp B/P (MAP) Pulse Ox O2 Delivery O2 Flow Rate FiO2 06/12/17 20:06 37.8 81 18 146/75 (98) 96 Room Air 06/12/17 16:00 99 Room Air 06/12/17 15:27 36.9 84 16 146/80 (102) 99 Room Air 06/12/17 08:30 Room Air 06/12/17 07:40 36.8 83 18 145/81 (102) 98 06/12/17 00:00 Room Air 06/11/17 23:47 37.1 84 18 125/84 (98) 92 Room Air Physical Exam General Appearance: WD/WN, no apparent distress, + obese Eyes: normal inspection, EOMI ENT: normal ENT inspection, pharynx normal Neck: supple, no adenopathy, thyroid normal, trachea midline Respiratory/Chest: chest non-tender, lungs clear, normal breath sounds, no respiratory distress Cardiovascular: regular rate, rhythm, no gallop, no murmur Abdomen: normal bowel sounds, non tender, soft, no organomegaly Extremities: + inflammation ( Right leg), + swelling ( right leg) Neurologic/Psychiatric: alert, oriented x 3 Skin: normal color, no rash, + pertinent finding ( slightly improved right leg cellulitis) Laboratory Results Last 24 Hours Test 06/12/17 05:02 White Blood Count 9.97 K/uL Red Blood Count 3.84 M/uL Hemoglobin 10.6 g/dL Hematocrit 32.7 % Mean Corpuscular Volume 85.2 fL Mean Corpuscular Hemoglobin 27.6 pg Mean Corpuscular Hemoglobin Concent 32.4 g/dl Platelet Count 249 K/uL Mean Platelet Volume 9.6 fL Neutrophils (%) (Auto) 75.2 % Lymphocytes (%) (Auto) 16.6 % Monocytes (%) (Auto) 6.6 % Eosinophils (%) (Auto) 1.3 % Basophils (%) (Auto) 0.1 % Neutrophils # (Auto) 7.49 K/uL Lymphocytes # (Auto) 1.66 K/uL Monocytes # (Auto) 0.66 K/uL Eosinophils # (Auto) 0.13 K/uL Basophils # (Auto) 0.01 K/uL RDW Standard Deviation 50.1 fL RDW Coefficient of Variation 16.0 % Immature Granulocyte % (Auto) 0.2 % Immature Granulocyte # (Auto) 0.02 K/uL Sodium Level 138 mmol/L Potassium Level 3.5 mmol/L Chloride Level 106 mmol/L Carbon Dioxide Level 24 mmol/L Anion Gap 8.0 mmol/L Blood Urea Nitrogen 17 mg/dl Creatinine 0.71 mg/dl Est Creatinine Clear Calc Drug Dose 147.6 ml/min Estimated GFR () 120.1 Estimated GFR (Non- 103.6 BUN/Creatinine Ratio 24.3 Random Glucose 87 mg/dl Calcium Level 8.2 mg/dl Assessment and Plan severe right lower extremity cellulitis associated with group G streptococcal bacteremia in otherwise healthy female. Patient will be continued on IV cefazolin for now, with length to be determined by clinical response
[2017-06-13 00:27] VITALS: BP 151/79; PULSE 86; TEMP 37.1; O2SAT 98
[2017-06-13] MEDS: CEFAZOLIN IV 2,000 MG in SYRINGE 0 ML IV SCH ×5 (03:49→22:19)
[2017-06-13] MEDS: HEPARIN SOD 5000 UNIT/0.5 ML CARP SQ SCH ×3 (06:07→22:16)
[2017-06-13 07:40] VITALS: BP 153/111; PULSE 70; TEMP 36.9; O2SAT 97
[2017-06-13] MEDS ORDERED: CEFTRIAXONE SOD INJ 2,000 MG in DEXTROSE 5% 50ML 50 ML IV SCH (08:00)
[2017-06-13 08:55] LABS: BASO % 0.3 %; BASO ABS # 0.02 K/uL (0-0.2); COMPLETE YES; EOS % 1.4 %; HEMATOCRIT 32.8 % (37-47); IG% 0.3 %; LYMPH % 20.5 %; LYMPH ABS # 1.62 K/uL (1.2-3.4); MEAN CELL VOLUME 84.8 fL (80-100); MEAN CORPUSCULAR HEMOGLOBIN 27.4 pg (25-34); MEAN CORPUSCULAR HGB CONC 32.3 g/dl (32-36); MEAN PLATELET VOLUME 9.4 fL (7.4-10.4); MONO % 6.1 %; NEUT % 71.4 %; PLATELET COUNT 300 K/uL (130-400); RED BLOOD COUNT 3.87 M/uL (4.2-5.4); WHITE BLOOD COUNT 7.91 K/uL (4.8-10.8)
[2017-06-13] MEDS: OXYCODONE/ACETAMINOPHEN 5-325 TAB PO PRN ×4 (09:26→22:17)
[2017-06-13 11:06] VITALS: BP 148/82
--- NOTE | 2017-06-13 14:12 | CONSULTATION REPORT ---
DATE OF CONSULTATION: 06/13/2017 REASON FOR CONSULTATION: Lower extremity cellulitis with bulla formation and group G beta strep bacteremia. HISTORY OF PRESENT ILLNESS: This 46-year-old woman was admitted to the hospital after she became acutely ill with right leg cellulitis and associated group G Strep bacteremia. She is currently on IV Ancef. She noted increasing redness and pain in her leg on 06/09. She was evaluated in the ED and placed on antibiotics. She returned on the with fever,worsening redness and bulla formation. She denies any initial trauma to the area. She denies prior problems with wound or skin infections. She is not diabetic. She does not smoke or have any history of vascular disease. PAST MEDICAL HISTORY: Obesity. PAST SURGICAL HISTORY: Denies. CURRENT MEDICATIONS: Zyrtec 10 mg daily, Benadryl 25 mg p.r.n., heparin 5,000 units subQ q. 8, Zofran 2 mg IV q. 6 hours p.r.n., Percocet 5/325 q. 4 hours p.r.n. and IV Ancef. ALLERGIES: PENICILLIN. FAMILY HISTORY: Clotting problems. SOCIAL HISTORY: Lives with family. Denies cigarette or alcohol use. PHYSICAL EXAMINATION: GENERAL: Reveals a pleasant 46-year-old woman who is alert and oriented in no acute distress. VITAL SIGNS: Temperature 36.9, pulse 70, respiratory rate 18 and unlabored, blood pressure 153/111. HEENT: Normocephalic, atraumatic. PERRL, EOMI. NECK: Supple, nontender. LUNGS: Clear without wheezing, rhonchi, or rales. HEART: Regular rate and rhythm without murmur. ABDOMEN: Obese, soft, nontender. EXTREMITIES: Attention to the right lower extremity, shows it to be markedly erythematous and edematous with a large fluid filled blisters, both posteriorly and anteriorly . Area post debridement measures 14cm X 17 cm. Distal pulses are intact. Sensation is intact. Left lower extremity is atraumatic, nontender, without calf tenderness or edema. Patient did not tolerate YANNICK measurement. NEUROLOGIC: Nonfocal. SKIN: See above. ASSESSMENT: A 46-year-old woman with right lower leg cellulitis with hemorrhagic bulla formation, and group G beta Streptococcal bacteremia. PLAN: The area did require debridement. With the patient's permission and after the application of topical Xylocaine, the bulla were unroofed. There was a large hemorrhagic clot noted anteriorly which was removed with scissors, forceps, curette and saline irrigation. Slough was removed with a curette. Scant bleeding occurred which was easily controlled with pressure. A wound culture was done. The wounds will be dressed with Aquacel AG, gauze dressings changed twice a day. If the patient tolerates. - use 1 layer Tubigrip for compression Continue with antibiotic therapy per Infectious Disease. We will continue to monitor her care while hospitalized and have her follow up as an outpatient at the [facility] if needed. This represents a nonexcisional debridement of 238 square cm and an evacuation of hematoma . SANA
[2017-06-13 15:37] VITALS: BP 120/73; PULSE 80; TEMP 36.6; O2SAT 96
--- NOTE | 2017-06-13 17:35 | Infectious Disease Progress Nt ---
Progress Note Date of Service Jun 13, 2017. Subjective Pt evaluation today including: conversation w/ patient, physical exam, chart review, lab review, review of studies, conversation w/ senior erp consultant, review of inpatient medication list Still with significant pain in right lower extremity. Erythema starting to recede. Wound care follow-up noted. Tolerating antibiotics without apparent difficulty. All Other Systems: Reviewed and Negative Medications Current Inpatient Medications Medications (Trade) Dose Ordered Sig/Brady Route Start Time Stop Time Status Last Admin Dose Admin Acetaminophen (Tylenol Tab) 650 mg Q4H PRN PO 06/10/17 21:30 07/10/17 21:29 Al Hydrox/Mg Hydrox/Simethicone (Maalox Max Susp) 15 ml Q4H PRN PO 06/10/17 21:30 07/10/17 21:29 Magnesium Hydroxide (Milk Of Magnesia Susp) 30 ml Q12H PRN PO 06/10/17 21:30 07/10/17 21:29 Ondansetron HCl (Zofran Inj) 4 mg Q6H PRN IV 06/10/17 21:30 07/10/17 21:29 Polyethylene (Miralax Powder Packet) 17 gm DAILY PRN PO 06/10/17 21:30 07/10/17 21:29 Cetirizine HCl (zyrTEC TAB) 10 mg QAM PRN PO 06/10/17 21:45 07/10/17 21:44 06/11/17 05:52 10 MG Oxycodone/ Acetaminophen (Percocet 5-325mg Tab) 1 tab Q4H PRN PO 06/10/17 23:00 06/24/17 22:59 06/13/17 17:25 1 TAB Cefazolin Sodium 2000 mg/Syringe 10 ml @ 150 mls/hr Q6H IV 06/11/17 16:00 06/18/17 15:59 06/13/17 16:20 150 MLS/HR Miscellaneous Information 1 ea UD PRN N/A 06/11/17 15:15 07/11/17 15:14 Heparin Sodium (Porcine) (Heparin Sq 5000 Unit/0.5ml) 5,000 unit Q8 SQ 06/11/17 22:00 07/11/17 21:59 06/13/17 13:08 5,000 UNIT Diphenhydramine HCl (Benadryl Cap) 25 mg Q4H PRN PO 06/11/17 20:30 07/11/17 20:29 06/13/17 17:24 25 MG Heparin Sodium (Porcine) (Heparin 10 Unit/ ml 5 ml Flush) 5 ml PRN PRN FLUSH 06/13/17 14:00 07/13/17 13:59 06/13/17 16:20 5 ML Objective Vital Signs Date Time Temp Pulse Resp B/P (MAP) Pulse Ox O2 Delivery O2 Flow Rate FiO2 06/13/17 16:13 Room Air 06/13/17 15:37 36.6 80 24 120/73 (89) 96 Room Air 06/13/17 11:06 148/82 (104) 06/13/17 08:35 Room Air 06/13/17 07:40 36.9 70 18 153/111 (125) 97 Room Air 06/13/17 00:27 37.1 86 18 151/79 (103) 98 Room Air 06/13/17 00:00 Room Air 06/12/17 20:06 37.8 81 18 146/75 (98) 96 Room Air Physical Exam General Appearance: WD/WN, no apparent distress, + obese Eyes: normal inspection, EOMI, sclerae normal ENT: normal ENT inspection, pharynx normal Neck: supple, no adenopathy, thyroid normal, trachea midline Respiratory/Chest: chest non-tender, lungs clear, normal breath sounds, no respiratory distress Cardiovascular: regular rate, rhythm, no gallop, no murmur Abdomen: normal bowel sounds, non tender, soft, no organomegaly Extremities: + inflammation ( Right leg), + swelling ( right leg) Neurologic/Psychiatric: alert, oriented x 3 Skin: normal color, + pertinent finding ( slowly improving right lower extremity cellulitis, large blisters unroofed) Lymphatic: no adenopathy Laboratory Results Date/Time Source Procedure Growth Status 06/13/17 12:35 Drainage - Surface Leg Right Lower Gram Stain Pending Ordered 06/13/17 12:35 Drainage - Surface Leg Right Lower Wound Culture Pending Ordered 06/13/17 06:30 Skin Leg Right Lower Gram Stain - Final Resulted 06/13/17 06:30 Skin Leg Right Lower Wound Culture Pending Resulted Last 24 Hours Test 06/13/17 08:20 White Blood Count 7.91 K/uL Red Blood Count 3.87 M/uL Hemoglobin 10.6 g/dL Hematocrit 32.8 % Mean Corpuscular Volume 84.8 fL Mean Corpuscular Hemoglobin 27.4 pg Mean Corpuscular Hemoglobin Concent 32.3 g/dl Platelet Count 300 K/uL Mean Platelet Volume 9.4 fL Neutrophils (%) (Auto) 71.4 % Lymphocytes (%) (Auto) 20.5 % Monocytes (%) (Auto) 6.1 % Eosinophils (%) (Auto) 1.4 % Basophils (%) (Auto) 0.3 % Neutrophils # (Auto) 5.66 K/uL Lymphocytes # (Auto) 1.62 K/uL Monocytes # (Auto) 0.48 K/uL Eosinophils # (Auto) 0.11 K/uL Basophils # (Auto) 0.02 K/uL RDW Standard Deviation 49.3 fL RDW Coefficient of Variation 15.9 % Immature Granulocyte % (Auto) 0.3 % Immature Granulocyte # (Auto) 0.02 K/uL Assessment and Plan severe right lower extremity cellulitis associated with group G streptococcal bacteremia in otherwise healthy female. Patient will be continued on IV cefazolin for now, with length to be determined by clinical response. will continue to follow.
--- NOTE | 2017-06-13 17:53 | Family Medicine Progress Note ---
Progress Note Date of Service Jun 13, 2017. Subjective Pt evaluation today including: conversation w/ patient, physical exam, chart review, lab review, review of studies Pain: 7/10 pain with palpation Voiding: no voiding problems, no incontinence Patient is resting comfortably in bed this morning. She is complaining of continued pain in her right lower extremity and increased weeping of fluid. She denies any fevers or chills. Constitutional: No fever, No chills, No sweats Respiratory: No cough, No wheezing, No shortness of breath Cardiovascular: + edema, No chest pain, No palpitations Abdomen: + nausea, No pain, No vomiting, No diarrhea Musculoskeletal: No joint pain Skin: + problem reported (Right lower extremity discomfort worsening. Increased drainage from open wound) Medications Current Inpatient Medications Medications (Trade) Dose Ordered Sig/Brady Route Start Time Stop Time Status Last Admin Dose Admin Acetaminophen (Tylenol Tab) 650 mg Q4H PRN PO 06/10/17 21:30 07/10/17 21:29 Al Hydrox/Mg Hydrox/Simethicone (Maalox Max Susp) 15 ml Q4H PRN PO 06/10/17 21:30 07/10/17 21:29 Magnesium Hydroxide (Milk Of Magnesia Susp) 30 ml Q12H PRN PO 06/10/17 21:30 07/10/17 21:29 Ondansetron HCl (Zofran Inj) 4 mg Q6H PRN IV 06/10/17 21:30 07/10/17 21:29 Polyethylene (Miralax Powder Packet) 17 gm DAILY PRN PO 06/10/17 21:30 07/10/17 21:29 Cetirizine HCl (zyrTEC TAB) 10 mg QAM PRN PO 06/10/17 21:45 07/10/17 21:44 06/11/17 05:52 10 MG Oxycodone/ Acetaminophen (Percocet 5-325mg Tab) 1 tab Q4H PRN PO 06/10/17 23:00 06/24/17 22:59 06/13/17 17:25 1 TAB Cefazolin Sodium 2000 mg/Syringe 10 ml @ 150 mls/hr Q6H IV 06/11/17 16:00 06/18/17 15:59 06/13/17 16:20 150 MLS/HR Miscellaneous Information 1 ea UD PRN N/A 06/11/17 15:15 07/11/17 15:14 Heparin Sodium (Porcine) (Heparin Sq 5000 Unit/0.5ml) 5,000 unit Q8 SQ 06/11/17 22:00 07/11/17 21:59 06/13/17 13:08 5,000 UNIT Diphenhydramine HCl (Benadryl Cap) 25 mg Q4H PRN PO 06/11/17 20:30 07/11/17 20:29 06/13/17 17:24 25 MG Heparin Sodium (Porcine) (Heparin 10 Unit/ ml 5 ml Flush) 5 ml PRN PRN FLUSH 06/13/17 14:00 07/13/17 13:59 06/13/17 16:20 5 ML Objective Vital Signs Date Time Temp Pulse Resp B/P (MAP) Pulse Ox O2 Delivery O2 Flow Rate FiO2 06/13/17 16:13 Room Air 06/13/17 15:37 36.6 80 24 120/73 (89) 96 Room Air 06/13/17 11:06 148/82 (104) 06/13/17 08:35 Room Air 06/13/17 07:40 36.9 70 18 153/111 (125) 97 Room Air 06/13/17 00:27 37.1 86 18 151/79 (103) 98 Room Air 06/13/17 00:00 Room Air 06/12/17 20:06 37.8 81 18 146/75 (98) 96 Room Air Physical Exam General Appearance: WD/WN, no apparent distress Eyes: normal inspection, sclerae normal Respiratory/Chest: chest non-tender, lungs clear, normal breath sounds Cardiovascular: regular rate, rhythm, no edema, no gallop Abdomen: normal bowel sounds, non tender, soft Extremities: + pertinent finding Neurologic/Psychiatric: no motor/sensory deficits, alert, normal mood/affect, oriented x 3 Skin: + pertinent finding (The right lower extremity dressing appeared soaked with yellow discharge from the wound. After removal there is bullae that are circumferential around the right lower extremity at the mid-tibular/fibular region and very tender to palpation. There is erythem from the dorsum of the foot (sparing the toes) to the area below the knee proximally. The erythema is improving from the proximal margins. ) Laboratory Results Results Past 24 Hours Test 06/13/17 08:20 Range/Units White Blood Count 7.91 4.8-10.8 K/uL Red Blood Count 3.87 4.2-5.4 M/uL Hemoglobin 10.6 12.0-16.0 g/dL Hematocrit 32.8 37-47 % Mean Corpuscular Volume 84.8 80-100 fL Mean Corpuscular Hemoglobin 27.4 25-34 pg Mean Corpuscular Hemoglobin Concent 32.3 32-36 g/dl Platelet Count 300 130-400 K/uL Mean Platelet Volume 9.4 7.4-10.4 fL Neutrophils (%) (Auto) 71.4 % Lymphocytes (%) (Auto) 20.5 % Monocytes (%) (Auto) 6.1 % Eosinophils (%) (Auto) 1.4 % Basophils (%) (Auto) 0.3 % Neutrophils # (Auto) 5.66 1.4-6.5 K/uL Lymphocytes # (Auto) 1.62 1.2-3.4 K/uL Monocytes # (Auto) 0.48 0.11-0.59 K/uL Eosinophils # (Auto) 0.11 0-0.5 K/uL Basophils # (Auto) 0.02 0-0.2 K/uL RDW Standard Deviation 49.3 36.4-46.3 fL RDW Coefficient of Variation 15.9 11.5-14.5 % Immature Granulocyte % (Auto) 0.3 % Immature Granulocyte # (Auto) 0.02 0.00-0.02 K/uL Microbiology Results 06/13/17 Gram Stain, Received Pending 06/13/17 Wound Culture, Received Pending 06/13/17 Gram Stain - Final, Resulted 06/13/17 Wound Culture, Resulted Pending Assessment and Plan This pt is a 46 yo obese female with R leg cellulitis with bulla formation, with failure of outpatient abx. Also with fever, tachycardia, sepsis, and Group G beta Strep bacteremia. Right leg cellulitis, with bulla formation,Sepsis, Group G beta Strep bacteremia.- Doppler RLE neg for DVT - Day 3 of Antibiotic Therapy - Ancef q6h dosing --> Appreciate ID recommendations - Wound care following --> Required debridement and bulla were unroofed. Hematoma removed from underlying wound and cultures taken. Wound redressed with Aquacel and gauze to be changed BID - Midline catheter placed today by IV team in order to have better access and for easy transition to outpatient therapy - As per ID will require IV antibiotic therapy until June 19 - Pt is penicillin allergic. Was initially started on Aztreonam & Vanco IV, but BCxs from 06/09 were growing Group G beta Strep--> ID recommended switching to Ancef - Leg CT - No deep soft tissue edema --> Extensive diffuse subcutaneous edema throughout the right lower leg and right foot, No loculated fluid collections to suggest an abscess, No evidence for osteomyelitis. - Elevate leg - Cetirizine daily PRN pruritus - Repeat Blood Culture Pending Code status: Full VTE: Heparin Dispo: General Medical Floor I agree with resident assessment and plan and have seen and examined pt myself Resting comfortably in bed VSS Labs reviewed Further infiltration of cellulitis into foot No worsening pain Redness noted on dorsum of right foot Cont Ancef at this time Midline placed for ease of antibx
[2017-06-13 20:00] VITALS: O2SAT 96
[2017-06-13 21:41] VITALS: BP 137/83; PULSE 86; TEMP 37.2; O2SAT 96
[2017-06-14] VITALS: BP 125/61; PULSE 88; TEMP 36.6; O2SAT 97
[2017-06-14] MEDS: CEFAZOLIN IV 2,000 MG in SYRINGE 0 ML IV SCH ×4 (03:48→22:24)
[2017-06-14] MEDS: HEPARIN SOD 5000 UNIT/0.5 ML CARP SQ SCH ×3 (06:07→22:27)
[2017-06-14] MEDS: OXYCODONE/ACETAMINOPHEN 5-325 TAB PO PRN ×3 (06:13→20:18)
[2017-06-14 07:46] VITALS: BP 149/76; PULSE 83; TEMP 36.9; O2SAT 96
[2017-06-14 16:00] VITALS: BP 150/79
[2017-06-14 16:01] VITALS: BP 176/89; PULSE 78; TEMP 36.9; O2SAT 98
--- NOTE | 2017-06-14 16:19 | Infectious Disease Progress Nt ---
Progress Note Date of Service Jun 14, 2017. Subjective Pt evaluation today including: conversation w/ patient, physical exam, chart review, lab review, review of studies, conversation w/ field sales consultant, review of inpatient medication list Patient feels she is unable to handle outpatient antibiotics. Making referral to [facility] facility. Remains afebrile. Pain slightly better right leg. All Other Systems: Reviewed and Negative Medications Current Inpatient Medications Medications (Trade) Dose Ordered Sig/Brady Route Start Time Stop Time Status Last Admin Dose Admin Acetaminophen (Tylenol Tab) 650 mg Q4H PRN PO 06/10/17 21:30 07/10/17 21:29 Al Hydrox/Mg Hydrox/Simethicone (Maalox Max Susp) 15 ml Q4H PRN PO 06/10/17 21:30 07/10/17 21:29 Magnesium Hydroxide (Milk Of Magnesia Susp) 30 ml Q12H PRN PO 06/10/17 21:30 07/10/17 21:29 Ondansetron HCl (Zofran Inj) 4 mg Q6H PRN IV 06/10/17 21:30 07/10/17 21:29 Polyethylene (Miralax Powder Packet) 17 gm DAILY PRN PO 06/10/17 21:30 07/10/17 21:29 Cetirizine HCl (zyrTEC TAB) 10 mg QAM PRN PO 06/10/17 21:45 07/10/17 21:44 06/11/17 05:52 10 MG Oxycodone/ Acetaminophen (Percocet 5-325mg Tab) 1 tab Q4H PRN PO 06/10/17 23:00 06/24/17 22:59 06/14/17 15:32 1 TAB Cefazolin Sodium 2000 mg/Syringe 10 ml @ 150 mls/hr Q6H IV 06/11/17 16:00 06/18/17 15:59 06/14/17 15:36 150 MLS/HR Miscellaneous Information 1 ea UD PRN N/A 06/11/17 15:15 07/11/17 15:14 Heparin Sodium (Porcine) (Heparin Sq 5000 Unit/0.5ml) 5,000 unit Q8 SQ 06/11/17 22:00 07/11/17 21:59 06/14/17 14:01 5,000 UNIT Diphenhydramine HCl (Benadryl Cap) 25 mg Q4H PRN PO 06/11/17 20:30 07/11/17 20:29 06/13/17 17:24 25 MG Heparin Sodium (Porcine) (Heparin 10 Unit/ ml 5 ml Flush) 5 ml PRN PRN FLUSH 06/13/17 14:00 07/13/17 13:59 06/14/17 15:36 5 ML Objective Vital Signs Date Time Temp Pulse Resp B/P (MAP) Pulse Ox O2 Delivery O2 Flow Rate FiO2 06/14/17 16:01 36.9 78 20 176/89 (118) 98 Room Air 06/14/17 08:45 Room Air 06/14/17 07:46 36.9 83 18 149/76 (100) 96 06/14/17 00:00 36.6 88 20 125/61 (82) 97 Room Air 06/14/17 00:00 Room Air 06/13/17 21:41 37.2 86 18 137/83 (101) 96 Room Air 06/13/17 20:00 96 Room Air Physical Exam General Appearance: WD/WN, no apparent distress Eyes: normal inspection, sclerae normal ENT: normal ENT inspection, pharynx normal Neck: supple, no adenopathy, trachea midline Respiratory/Chest: lungs clear, normal breath sounds, no respiratory distress Cardiovascular: regular rate, rhythm, no gallop, no murmur Abdomen: normal bowel sounds, non tender, soft, no organomegaly Extremities: no calf tenderness, + inflammation (Right leg), + swelling (Right leg) Neurologic/Psychiatric: alert, oriented x 3 Skin: normal color, no rash, + pertinent finding (Slowly improving right leg cellulitis) Lymphatic: no adenopathy Laboratory Results RUN DATE: 06/14/17 [facility] LAB PAGE 1 RUN TIME: 2032 Specimen Inquiry 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 SOURCE: DRAIN-SURF ENTR: 06/13/17-1237 [facility] DR: Ten Martin D.O. SPDESC: LEG Sam Khan MD, Joshua ., MD No Doctor, Assigned Elliott Luna M.D., Mark R., DO ORDERED: SURF WND [facility] COMMENTS: Has Specimen Been Obtained/Collected? Y Procedure Result Verified Site GRAM STAIN Final 11/22/17-0725 RESULT NO WBCs SEEN NO ORGANISMS SEEN SURFACE WOUND CULTURE Preliminary 06/14/17 NO GROWTH TO DATE. Assessment and Plan severe right lower extremity cellulitis associated with group G streptococcal bacteremia in otherwise healthy female. Would like to give at least 10 days of IV antibiotic therapy. Will follow while in hospital.
--- NOTE | 2017-06-14 16:51 | Family Medicine Progress Note ---
Progress Note Date of Service Jun 14, 2017. Subjective Pt evaluation today including: conversation w/ patient, physical exam, chart review, lab review, review of studies Pain: 7/10 pain over the right lower extremity Voiding: no voiding problems, no incontinence Patient states that she has formed a new blister above her current dressings and continues to have moderate intensity pain over the area. The infection does appear to be improving but she is having continued weeping and discomfort over the leg. She denies any fevers, chills, shortness of breath, confusion, or any other acute complaints. Constitutional: No fever, No chills, No sweats Respiratory: No cough, No sputum, No wheezing, No shortness of breath Cardiovascular: No chest pain, No palpitations Abdomen: No pain, No nausea, No vomiting, No diarrhea, No constipation Heme: No night sweats Endo: No fatigue Skin: + problem reported (new bilster formed over right leg above current dressings) Medications Current Inpatient Medications Medications (Trade) Dose Ordered Sig/Brady Route Start Time Stop Time Status Last Admin Dose Admin Acetaminophen (Tylenol Tab) 650 mg Q4H PRN PO 06/10/17 21:30 07/10/17 21:29 Al Hydrox/Mg Hydrox/Simethicone (Maalox Max Susp) 15 ml Q4H PRN PO 06/10/17 21:30 07/10/17 21:29 Magnesium Hydroxide (Milk Of Magnesia Susp) 30 ml Q12H PRN PO 06/10/17 21:30 07/10/17 21:29 Ondansetron HCl (Zofran Inj) 4 mg Q6H PRN IV 06/10/17 21:30 07/10/17 21:29 Polyethylene (Miralax Powder Packet) 17 gm DAILY PRN PO 06/10/17 21:30 07/10/17 21:29 Cetirizine HCl (zyrTEC TAB) 10 mg QAM PRN PO 06/10/17 21:45 07/10/17 21:44 06/11/17 05:52 10 MG Oxycodone/ Acetaminophen (Percocet 5-325mg Tab) 1 tab Q4H PRN PO 06/10/17 23:00 06/24/17 22:59 06/14/17 15:32 1 TAB Cefazolin Sodium 2000 mg/Syringe 10 ml @ 150 mls/hr Q6H IV 06/11/17 16:00 06/18/17 15:59 06/14/17 15:36 150 MLS/HR Miscellaneous Information 1 ea UD PRN N/A 06/11/17 15:15 07/11/17 15:14 Heparin Sodium (Porcine) (Heparin Sq 5000 Unit/0.5ml) 5,000 unit Q8 SQ 06/11/17 22:00 07/11/17 21:59 06/14/17 14:01 5,000 UNIT Diphenhydramine HCl (Benadryl Cap) 25 mg Q4H PRN PO 06/11/17 20:30 07/11/17 20:29 06/13/17 17:24 25 MG Heparin Sodium (Porcine) (Heparin 10 Unit/ ml 5 ml Flush) 5 ml PRN PRN FLUSH 06/13/17 14:00 07/13/17 13:59 06/14/17 15:36 5 ML Objective Vital Signs Date Time Temp Pulse Resp B/P (MAP) Pulse Ox O2 Delivery O2 Flow Rate FiO2 06/14/17 16:01 36.9 78 20 176/89 (118) 98 Room Air 06/14/17 08:45 Room Air 06/14/17 07:46 36.9 83 18 149/76 (100) 96 06/14/17 00:00 36.6 88 20 125/61 (82) 97 Room Air 06/14/17 00:00 Room Air 06/13/17 21:41 37.2 86 18 137/83 (101) 96 Room Air 06/13/17 20:00 96 Room Air Physical Exam General Appearance: WD/WN, no apparent distress Eyes: normal inspection, sclerae normal Respiratory/Chest: chest non-tender, lungs clear, normal breath sounds Cardiovascular: regular rate, rhythm, no edema, no gallop Abdomen: normal bowel sounds, non tender, soft Extremities: + pertinent finding (Patient continues to have significant weeping , erythema, and tenderness over the right lower extremity. The cellulitis around the poximal and distal margins appear to be improving. She has formed another bulla above the dressing made by wound care. ) Neurologic/Psychiatric: alert, normal mood/affect, oriented x 3 Assessment and Plan This pt is a 46 yo obese female with R leg cellulitis with bulla formation, with failure of outpatient abx. Also with fever, tachycardia, sepsis, and Group G beta Strep bacteremia. Right leg cellulitis, with bulla formation,Sepsis, Group G beta Strep bacteremia.- Doppler RLE neg for DVT - Day 4 of Antibiotic Therapy - Ancef q6h dosing --> Appreciate ID recommendations - Leukocytosis has resolved and no growth to date on cultures - On discharge, antibiotic dosing will be changed to q8h from q6h - At this point ID recommends at least 10 days of IV antibiotic therapy (At least until the 19 of June) - Patient does not think that she will be able to do home antibiotic treatments --> PT/OT notes do not support placement but currently awaiting referrals to multiple facilities - Wound care following --> Required debridement and bulla were unroofed on . Hematoma removed from underlying wound and cultures taken. Wound redressed with Aquacel and gauze to be changed BID - Midline catheter placed today by IV team on in order to have better access and for easy transition to outpatient therapy - Pt is penicillin allergic. Was initially started on Aztreonam & Vanco IV, but BCxs from 06/09 were growing Group G beta Strep--> ID recommended switching to Ancef - Leg CT - No deep soft tissue edema --> Extensive diffuse subcutaneous edema throughout the right lower leg and right foot, No loculated fluid collections to suggest an abscess, No evidence for osteomyelitis. - Elevate leg - Cetirizine daily PRN pruritus - Repeat Blood Culture Pending Code status: Full VTE: Heparin Dispo: General Medical Floor
[2017-06-15 01:07] VITALS: BP 127/73; PULSE 85; TEMP 36.9; O2SAT 94
[2017-06-15] MEDS: OXYCODONE/ACETAMINOPHEN 5-325 TAB PO PRN ×4 (03:00→22:02)
[2017-06-15] MEDS: CEFAZOLIN IV 2,000 MG in SYRINGE 0 ML IV SCH ×4 (03:46→22:02)
[2017-06-15] MEDS: HEPARIN SOD 5000 UNIT/0.5 ML CARP SQ SCH ×3 (06:13→22:08)
[2017-06-15 07:36] LABS: HEMATOCRIT 33.3 % (37-47); MEAN CELL VOLUME 85.2 fL (80-100); MEAN CORPUSCULAR HEMOGLOBIN 27.4 pg (25-34); MEAN CORPUSCULAR HGB CONC 32.1 g/dl (32-36); MEAN PLATELET VOLUME 8.9 fL (7.4-10.4); PLATELET COUNT 333 K/uL (130-400); RED BLOOD COUNT 3.91 M/uL (4.2-5.4); WHITE BLOOD COUNT 8.52 K/uL (4.8-10.8)
[2017-06-15 07:56] VITALS: BP 120/77; PULSE 71; TEMP 36.7; O2SAT 97
[2017-06-15 08:03] LABS: CREATININE 0.47 mg/dl (0.60-1.20)
[2017-06-15 09:00] VITALS: O2SAT 97
--- NOTE | 2017-06-15 10:44 | Family Medicine Progress Note ---
Progress Note Date of Service Jun 15, 2017. Subjective Pt evaluation today including: conversation w/ patient, physical exam, chart review, lab review, review of studies Pain: Pain with palpation of the right lower extremity below the knee
--- NOTE | 2017-06-15 15:03 | Family Medicine Progress Note ---
Progress Note Date of Service Jun 15, 2017. Subjective Pt evaluation today including: conversation w/ patient, physical exam, chart review, lab review, review of studies Pain: No pain at rest, pain with movement or palpation of the leg Voiding: no voiding problems, no incontinence Patient states that there appears to be some improvement in the appearance of the redness of her leg. She denies any fevers, chills, shortness of breath, or worsening leg pain. The leg has continued to have yellow/clear discharge and her dressings continue to be wet. Constitutional: No fever, No chills, No sweats, No fatigue Respiratory: No cough, No sputum, No shortness of breath Cardiovascular: No chest pain, No palpitations Abdomen: No pain, No nausea, No vomiting Endo: No fatigue Skin: + problem reported (right leg erythema improving, no new bulla have formed) Medications Current Inpatient Medications Medications (Trade) Dose Ordered Sig/Brady Route Start Time Stop Time Status Last Admin Dose Admin Acetaminophen (Tylenol Tab) 650 mg Q4H PRN PO 06/10/17 21:30 07/10/17 21:29 Al Hydrox/Mg Hydrox/Simethicone (Maalox Max Susp) 15 ml Q4H PRN PO 06/10/17 21:30 07/10/17 21:29 Magnesium Hydroxide (Milk Of Magnesia Susp) 30 ml Q12H PRN PO 06/10/17 21:30 07/10/17 21:29 Ondansetron HCl (Zofran Inj) 4 mg Q6H PRN IV 06/10/17 21:30 07/10/17 21:29 Polyethylene (Miralax Powder Packet) 17 gm DAILY PRN PO 06/10/17 21:30 07/10/17 21:29 Cetirizine HCl (zyrTEC TAB) 10 mg QAM PRN PO 06/10/17 21:45 07/10/17 21:44 06/11/17 05:52 10 MG Oxycodone/ Acetaminophen (Percocet 5-325mg Tab) 1 tab Q4H PRN PO 06/10/17 23:00 06/24/17 22:59 06/15/17 08:56 1 TAB Cefazolin Sodium 2000 mg/Syringe 10 ml @ 150 mls/hr Q6H IV 06/11/17 16:00 06/18/17 15:59 06/15/17 11:42 150 MLS/HR Miscellaneous Information 1 ea UD PRN N/A 06/11/17 15:15 07/11/17 15:14 Heparin Sodium (Porcine) (Heparin Sq 5000 Unit/0.5ml) 5,000 unit Q8 SQ 06/11/17 22:00 07/11/17 21:59 06/15/17 14:43 5,000 UNIT Diphenhydramine HCl (Benadryl Cap) 25 mg Q4H PRN PO 06/11/17 20:30 07/11/17 20:29 06/15/17 03:03 25 MG Heparin Sodium (Porcine) (Heparin 10 Unit/ ml 5 ml Flush) 5 ml PRN PRN FLUSH 06/13/17 14:00 07/13/17 13:59 06/15/17 11:43 5 ML Objective Vital Signs Date Time Temp Pulse Resp B/P (MAP) Pulse Ox O2 Delivery O2 Flow Rate FiO2 06/15/17 09:00 97 Room Air 06/15/17 07:56 36.7 71 20 120/77 (91) 97 Room Air 06/15/17 01:07 36.9 85 20 127/73 (91) 94 Room Air 06/15/17 00:00 Room Air 06/14/17 16:01 36.9 78 20 176/89 (118) 98 Room Air 06/14/17 16:00 150/79 (102) 06/14/17 16:00 Room Air Physical Exam General Appearance: WD/WN, no apparent distress Eyes: normal inspection, sclerae normal Neck: supple, no carotid bruits Respiratory/Chest: chest non-tender, lungs clear, normal breath sounds Cardiovascular: regular rate, rhythm, no edema, no gallop Abdomen: normal bowel sounds, non tender, soft Extremities: + pertinent finding (Dressing has yellow discoloration for discharge over the right lower extremity. Compared to yesterday there is improvement over the dorsum of the foot as there is central clearing in the area. There is no progression at either end of the erythema. Otherwise dressing intact.) Neurologic/Psychiatric: alert, normal mood/affect, oriented x 3 Laboratory Results Results Past 24 Hours Test 06/15/17 07:23 Range/Units White Blood Count 8.52 4.8-10.8 K/uL Red Blood Count 3.91 4.2-5.4 M/uL Hemoglobin 10.7 12.0-16.0 g/dL Hematocrit 33.3 37-47 % Mean Corpuscular Volume 85.2 80-100 fL Mean Corpuscular Hemoglobin 27.4 25-34 pg Mean Corpuscular Hemoglobin Concent 32.1 32-36 g/dl RDW Standard Deviation 49.6 36.4-46.3 fL RDW Coefficient of Variation 16.0 11.5-14.5 % Platelet Count 333 130-400 K/uL Mean Platelet Volume 8.9 7.4-10.4 fL Creatinine 0.47 0.60-1.20 mg/dl Est Creatinine Clear Calc Drug Dose 222.9 ml/min Estimated GFR () 139.2 Estimated GFR (Non- 120.1 Assessment and Plan This pt is a 46 yo obese female with R leg cellulitis with bulla formation, with failure of outpatient abx. Also with fever, tachycardia, sepsis, and Group G beta Strep bacteremia. Right leg cellulitis, with bulla formation,Sepsis, Group G beta Strep bacteremia.- Doppler RLE neg for DVT - Improvement today of right lower leg cellulitis, clearing over the dorsum of the right foot along with improvements at the proximal and distal margins - Day 5 of Antibiotic Therapy - Ancef q6h dosing --> Appreciate ID recommendations - Leukocytosis has resolved and no growth to date on cultures - On discharge, antibiotic dosing will be changed to q8h from q6h - At this point ID recommends at least 10 days of IV antibiotic therapy (At least until the 19 of June) - Patient does not think that she will be able to do home antibiotic treatments --> PT/OT notes do not support placement but currently awaiting referrals to multiple facilities - Wound care following --> Required debridement and bulla were unroofed on . Hematoma removed from underlying wound and cultures taken. Wound redressed with Aquacel and gauze to be changed BID - Midline catheter placed today by IV team on in order to have better access and for easy transition to outpatient therapy - Pt is penicillin allergic. Was initially started on Aztreonam & Vanco IV, but BCxs from 06/09 were growing Group G beta Strep--> ID recommended switching to Ancef - Leg CT - No deep soft tissue edema --> Extensive diffuse subcutaneous edema throughout the right lower leg and right foot, No loculated fluid collections to suggest an abscess, No evidence for osteomyelitis. - Elevate leg - Cetirizine daily PRN pruritus - Repeat Blood Culture Pending Code status: Full VTE: Heparin Dispo: General Medical Floor Resident Tracking Resident Involvement: Resident Care Provided Care Provided: Adult Hospital Medicine
[2017-06-15 16:05] VITALS: O2SAT 97
[2017-06-15 16:10] VITALS: BP 147/62; PULSE 76; TEMP 36.9; O2SAT 98
[2017-06-16 01:17] VITALS: BP 148/76; PULSE 74; TEMP 36.9; O2SAT 95
[2017-06-16] MEDS: OXYCODONE/ACETAMINOPHEN 5-325 TAB PO PRN ×6 (01:54→23:47)
[2017-06-16] MEDS: CEFAZOLIN IV 2,000 MG in SYRINGE 0 ML IV SCH ×4 (04:23→21:57)
[2017-06-16] MEDS: HEPARIN SOD 5000 UNIT/0.5 ML CARP SQ SCH ×3 (06:08→22:06)
[2017-06-16 07:52] VITALS: BP 132/73; PULSE 72; TEMP 36.8; O2SAT 96
[2017-06-16 15:08] VITALS: BP 114/74; PULSE 78; TEMP 37; O2SAT 94
--- NOTE | 2017-06-16 15:40 | Family Medicine Progress Note ---
Progress Note Date of Service Jun 16, 2017. Subjective Pt evaluation today including: conversation w/ patient, physical exam, chart review, lab review, review of studies Pain: 7/10 pain over right lower extremity Voiding: no voiding problems, no incontinence Patient is resting comfortably in bed this morning with no acute complaints overnight. She states that she feels the legs is now tighter, but denies any loss of sensation or range of motion in the foot Constitutional: No fever, No chills, No sweats Respiratory: No cough, No shortness of breath Cardiovascular: No chest pain, No palpitations Abdomen: No pain, No nausea, No vomiting Skin: + problem reported (Right lower leg redness improving, continue weeping of fluid, increased tightness in the leg) Medications Current Inpatient Medications Medications (Trade) Dose Ordered Sig/Brady Route Start Time Stop Time Status Last Admin Dose Admin Acetaminophen (Tylenol Tab) 650 mg Q4H PRN PO 06/10/17 21:30 07/10/17 21:29 Al Hydrox/Mg Hydrox/Simethicone (Maalox Max Susp) 15 ml Q4H PRN PO 06/10/17 21:30 07/10/17 21:29 Magnesium Hydroxide (Milk Of Magnesia Susp) 30 ml Q12H PRN PO 06/10/17 21:30 07/10/17 21:29 Ondansetron HCl (Zofran Inj) 4 mg Q6H PRN IV 06/10/17 21:30 07/10/17 21:29 Polyethylene (Miralax Powder Packet) 17 gm DAILY PRN PO 06/10/17 21:30 07/10/17 21:29 Cetirizine HCl (zyrTEC TAB) 10 mg QAM PRN PO 06/10/17 21:45 07/10/17 21:44 06/11/17 05:52 10 MG Oxycodone/ Acetaminophen (Percocet 5-325mg Tab) 1 tab Q4H PRN PO 06/10/17 23:00 06/24/17 22:59 06/16/17 14:07 1 TAB Cefazolin Sodium 2000 mg/Syringe 10 ml @ 150 mls/hr Q6H IV 06/11/17 16:00 06/18/17 15:59 06/16/17 10:11 150 MLS/HR Miscellaneous Information 1 ea UD PRN N/A 06/11/17 15:15 07/11/17 15:14 Heparin Sodium (Porcine) (Heparin Sq 5000 Unit/0.5ml) 5,000 unit Q8 SQ 06/11/17 22:00 07/11/17 21:59 06/16/17 14:07 5,000 UNIT Diphenhydramine HCl (Benadryl Cap) 25 mg Q4H PRN PO 06/11/17 20:30 07/11/17 20:29 06/16/17 10:11 25 MG Heparin Sodium (Porcine) (Heparin 10 Unit/ ml 5 ml Flush) 5 ml PRN PRN FLUSH 06/13/17 14:00 07/13/17 13:59 06/16/17 10:11 5 ML Objective Vital Signs Date Time Temp Pulse Resp B/P (MAP) Pulse Ox O2 Delivery O2 Flow Rate FiO2 06/16/17 15:08 37.0 78 18 114/74 (87) 94 Room Air 06/16/17 08:55 Room Air 06/16/17 07:52 36.8 72 20 132/73 (92) 96 Room Air 06/16/17 01:17 36.9 74 18 148/76 (100) 95 Room Air 06/16/17 00:00 Room Air 06/15/17 20:00 Room Air 06/15/17 16:10 36.9 76 18 147/62 (90) 98 Room Air 06/15/17 16:05 97 Room Air Physical Exam General Appearance: WD/WN, no apparent distress, + obese Eyes: normal inspection, sclerae normal Respiratory/Chest: chest non-tender, lungs clear, normal breath sounds Cardiovascular: regular rate, rhythm, no edema, no gallop, no murmur Abdomen: normal bowel sounds, non tender, soft Extremities: + pertinent finding (Continued improvement of erythema at the margins of the infections as well over the dorsum of the foot. Dressing at this time is c/d/i as the nurse just performed a dressing change. 2+ pulses over DP and PT arteries. Continued swelling and weeping of fluid from the effected extremity.) Assessment and Plan This pt is a 46 yo obese female with R leg cellulitis with bulla formation, with failure of outpatient abx. Also with fever, tachycardia, sepsis, and Group G beta Strep bacteremia. Right leg cellulitis, with bulla formation,Sepsis, Group G beta Strep bacteremia.- Doppler RLE neg for DVT - Improvement today of right lower leg cellulitis, clearing over the dorsum of the right foot along with improvements at the proximal and distal margins - Day 6 of Antibiotic Therapy - Ancef q6h dosing --> Appreciate ID recommendations - Leukocytosis has resolved and no growth to date on cultures - On discharge, antibiotic dosing will be changed to q8h from q6h - At this point ID recommends at least 10 days of IV antibiotic therapy (At least until the 19 of June) - Patient does not think that she will be able to do home antibiotic treatments --> PT/OT notes do not support placement but currently awaiting referrals to multiple facilities - Wound care following --> Required debridement and bulla were unroofed on . Hematoma removed from underlying wound and cultures taken. Wound redressed with Aquacel and gauze to be changed BID - Midline catheter placed today by IV team on in order to have better access and for easy transition to outpatient therapy - Pt is penicillin allergic. Was initially started on Aztreonam & Vanco IV, but BCxs from 06/09 were growing Group G beta Strep--> ID recommended switching to Ancef - Leg CT - No deep soft tissue edema --> Extensive diffuse subcutaneous edema throughout the right lower leg and right foot, No loculated fluid collections to suggest an abscess, No evidence for osteomyelitis. - Elevate leg - Cetirizine daily PRN pruritus - Repeat Blood Culture Pending Code status: Full VTE: Heparin Dispo: General Medical Floor
[2017-06-16 22:49] VITALS: BP 137/82; PULSE 73; TEMP 36.9; O2SAT 98
[2017-06-17] MEDS: CEFAZOLIN IV 2,000 MG in SYRINGE 0 ML IV SCH ×2 (04:17→10:31)
[2017-06-17] MEDS: HEPARIN SOD 5000 UNIT/0.5 ML CARP SQ SCH (05:50)
[2017-06-17 08:00] VITALS: O2SAT 98
[2017-06-17 08:40] VITALS: BP 137/83; PULSE 74; TEMP 36.9; O2SAT 98
[2017-06-17] MEDS ORDERED: HYDR-5688 PO ×2 (10:38→11:03)
[2017-06-17] MEDS: OXYCODONE/ACETAMINOPHEN 5-325 TAB PO PRN (10:38)
[2017-06-17] MEDS ORDERED: CEFA1INJ IV (10:38)
[2017-06-17] MEDS ORDERED: ONDA4TAB46 PO (10:38)
--- NOTE | 2017-06-17 10:56 | Discharge Instructions ---
Discharge Instructions Date of Service Jun 17, 2017. Admission Reason for Admission: Cellulitis Of Right Leg Discharge Discharge Diagnosis / Problem: Sepsis and Bacteremia 2/2 Cellulitis Discharge Goals Goal(s): Decrease discomfort, Therapeutic intervention Activity Recommendations Activity Limitations: as noted below Lifting Limitations: gradually increase as tolerated Exercise/Sports Limitations: gradually increase as tolerated . Instructions / Follow-Up Instructions / Follow-Up You were treated in the hospital for a blood infection secondary to cellulitis ( an infection of the skin) with IV antibiotics. During your time in the hospital your blood counts improved and your repeated blood cultures were negative. You will be discharged home with IV antibiotics until the 20 of June (4 more days). Our manager case will make a follow up appointment for next week with wound care, and also have you establish with a primary care doctor who can follow up and make sure the wound is improving. You will be received the antibiotics at home three times per day at 6am, 2pm, and 10pm. If you notice worsening redness, extension of the redness up or down the leg, have fevers, chills, shortness of breath, confusion, or any other concerning symptoms please return to the hospital for evaluation or be seen by a doctor as soon as possible. Medications: - Cefazolin 2gm IV every 8 hours (6am, 2pm, 10pm) - This is the antibiotic used to treat your infection - [place] 5/325mg - 1 tablet by mouth every 4 hours IF NEEDED for pain - Zofran 4mg - 1 tablet by mouth every 6 hours IF NEEDED for nausea Current Hospital Diet Patient's current hospital diet: AHA Diet (Heart Healthy) Discharge Diet Recommended Diet: AHA Diet (Heart Healthy) Pending Studies Studies pending at discharge: no Medical Emergencies . Who to Call and When: Medical Emergencies: If at any time you feel your situation is an emergency, please call 911 immediately. . Non-Emergent Contact Non-Emergency issues call your: Primary Care Provider, Hospital Doctor . . "Provider Documentation" section prepared by Joni Patel. . VTE Core Measure Inpt VTE Proph given/why not?: Unfractionated heparin SQ Resident Tracking Resident Involvement: Resident Care Provided Care Provided: Adult Hospital Medicine
[2017-06-17 11:13] VITALS: BP 137/83; PULSE 74; TEMP 36.9; O2SAT 98
--- NOTE | 2017-06-17 16:15 | Discharge Summary ---
Discharge Summary Date of Service Jun 17, 2017. (Joni Patel MD) Discharge Summary Admission Date: Jun 10, 2017 at 21:27 Discharge Date: Jun 17, 2017 Discharge Disposition: Home Principal Diagnosis: sepsis and bacteremia secondary to cellulitis Problems/Secondary Diagnoses: (1) Obesity Status: Chronic Immunizations: Have You Had Influenza Vaccine: Unknown History of Tetanus Vaccine?: Unknown History of Pneumococcal: No History of Hepatitis B Vaccine: Unknown (Joni Patel MD) Medication Reconciliation New Medications: Cefazolin Sodium (Cefazolin Sodium) 1 Gm/10 Ml Inj 2 GM IV Q8 for 4 Days, #30 GM Hydrocodone/Acetaminophen 5MG/325MG (Myton 5MG/325MG) Tab 1 TABLET PO Q4 PRN for Pain, #20 TAB Ondansetron Hcl (Zofran) 4 Mg Tab 4 MG PO Q6 for Nausea for 4 Days, #6 TAB Discontinued Medications: Cephalexin Monohydrate (Keflex) 500 Mg Cap 500 MG PO QID for 10 Days, #40 CAP BEGIN 06/09/17 X 10 DAYS. Discharge Exam Review of Systems: Constitutional: No fever, No chills, No fatigue Respiratory: No cough, No shortness of breath Cardiovascular: No chest pain, No palpitations Abdomen: No pain, No nausea, No vomiting, No diarrhea Neurologic: No numbness/tingling Integumentary: + problem reported (erythema over the right lower extremity with bullous formation and weeping of fluid) Physical Exam: General Appearance: no apparent distress, + obese Eyes: normal inspection, sclerae normal Respiratory/Chest: chest non-tender, lungs clear, normal breath sounds Cardiovascular: regular rate, rhythm, no edema, no gallop Abdomen / GI: normal bowel sounds, non tender, soft Extremities: + pertinent finding (patient has right lower extremity cellulitis extending below the knee approximately to the distal tib-fib area above the ankle. There appears to be an open bulla over the lateral aspect of the right lower leg that is erythematous. There is also a intact bulla superior to where the dressing is placed over her lower extremity. The patient complains of tenderness with any palpation of the lower extremity. There is some clearing over the erythema over the dorsum of the foot as well as at the proximal margin below the knee. After following the cellulitis, there does appear to be some improved redness over the lower extremity especially over the dorsum of the foot, although there is some residual discharge and erythema at the area of the bulla. The patient has intact range of motion of the right ankle and normal sensation over the toes. The patient also has 2+ pulses orbited dorsalis pedis and posterior tibial arteries.) Neurologic/Psychiatric: alert, normal mood/affect, oriented x 3 (Joni Patel MD) Hospital Course This pt is a 46 yo obese female with R leg cellulitis with bulla formation, with failure of outpatient abx. Also with fever, tachycardia, sepsis, and Group G beta Strep bacteremia. The patient was initially seen last week in the emergency department with a right lower extremity cellulitis and discharged home with oral antibiotics. The patient was initially seen on the in the ED, and returned on the evening of the with significant worsening of the cellulitis. There was both bullous formation as well as weeping from the wound. The patient also was found to have positive blood cultures in addition to sepsis. Her blood cultures grew group G beta strep, and after initially being placed on aztreonam and vancomycin IV, infectious disease narrowed her antibiotics to Ancef. The patient was also seen by wound care during her inpatient stay, and had debridement and unroofing of the bulla on 06/13, with hematoma removal. The patient also formed another bulla during her stay above the area of dressing. The patient was treated with 7 days of IV Ancef and did show improvement although due to the significant nature of her cellulitis will require an additional 4 days of IV antibiotics on discharge. The patient will also be following with wound care as an outpatient. At this time she does not have a primary care physician and we will set her up with one who will follow with her next week. Right leg cellulitis, with bulla formation,Sepsis, Group G beta Strep bacteremia.- Doppler RLE neg for DVT - Improvement today of right lower leg cellulitis, clearing over the dorsum of the right foot along with improvements at the proximal and distal margins - Day 7 of Antibiotic Therapy - Ancef q6h dosing --> Appreciate ID recommendations - Leukocytosis has resolved and no growth to date on cultures - On discharge, antibiotic dosing will be changed to q8h from q6h - At this point ID recommends at least 10 days of IV antibiotic therapy (At least until the 19 of June) - Patient does not think that she will be able to do home antibiotic treatments --> PT/OT notes do not support placement but currently awaiting referrals to multiple facilities - Wound care following --> Required debridement and bulla were unroofed on . Hematoma removed from underlying wound and cultures taken. Wound redressed with Aquacel and gauze to be changed BID - Midline catheter placed today by IV team on in order to have better access and for easy transition to outpatient therapy - Pt is penicillin allergic. Was initially started on Aztreonam & Vanco IV, but BCxs from 06/09 were growing Group G beta Strep--> ID recommended switching to Ancef - Leg CT - No deep soft tissue edema --> Extensive diffuse subcutaneous edema throughout the right lower leg and right foot, No loculated fluid collections to suggest an abscess, No evidence for osteomyelitis. - Elevate leg - Cetirizine daily PRN pruritus - Repeat Blood Culture Pending Code status: Full VTE: Heparin Dispo: General Medical Floor Total Time Spent: Greater than 30 minutes This includes examination of the patient, discharge planning, medication reconciliation, and communication with other providers. (Joni Patel MD) I agree with resident assessment and plan and have seen and examined pt myself Resting comfortably in bed VSS Labs reviewed Right LE cellulitis improving, britney in relations to dorsum of foot Cont IV ancef Will need tx till 06/19 Stable for DC, provided script for nome ([facility]) Discharge Instructions Please refer to the electronic Patient Visit Report (Discharge Instructions) for additional information. (Joni Patel MD) Resident Tracking Resident Involvement: Resident Care Provided Care Provided: Adult Hospital Medicine (Joni Patel MD)
== END 2017-06-17 14:10 | disposition home health service (06) | DRG 872 ==
LOC: C.EDB 19:01 → C.MED 21:27 → EDBEDREQ 21:32 → ENRESERV 22:01 → C.MS4W 06-13 20:24 → ENRESERV 06-14 17:46 → C.MS2W 06-14 18:01
PROVIDERS: ADMIT Hospitalist; ATTEND Hospitalist
PROC: 0H9KXZZ Drainage of Right Lower Leg Skin, External Approach (ICD-10-PCS; principal; 2017-06-10)
PROC: 0HBKXZZ Excision of Right Lower Leg Skin, External Approach (ICD-10-PCS; 2017-06-13)
PROC: 05HD33Z Insertion of Infusion Device into Right Cephalic Vein, Percutaneous Approach (ICD-10-PCS; 2017-06-17)
DX: A41.9 Sepsis, unspecified organism (principal); L03.115 Cellulitis of right lower limb; B95.5 Unspecified streptococcus as the cause of diseases classified elsewhere; E66.9 Obesity, unspecified; R23.8 Other skin changes; L29.9 Pruritus, unspecified

== ENCOUNTER → 2017-06-23 | Outpatient (CLI) | payer OTHER ==
[~2017-06-23] MED LIST changes: +CEFA1INJ IV; +CEFA500C2 PO; -CEPH500C PO; +CLIN300C2 PO; +DAPT500I IV; +FERR325T18 PO; +HYDR-5688 PO; +VTMB12 PO
[2017-06-23 12:27] LABS: HEMATOCRIT 35.9 % (37-47); HEMOGLOBIN 11.5 g/dL (12.0-16.0); MEAN CELL VOLUME 86.7 fL (80-100); MEAN CORPUSCULAR HEMOGLOBIN 27.8 pg (25-34); MEAN PLATELET VOLUME 10.1 fL (7.4-10.4); PLATELET COUNT 431 K/uL (130-400); RED CELL DISTRIBUTION WIDTH CV 15.9 % (11.5-14.5); RED CELL DISTRIBUTION WIDTH SD 50.8 fL (36.4-46.3); WHITE BLOOD COUNT 6.94 K/uL (4.8-10.8)
[2017-06-23 12:42] LABS: ALBUMIN 2.8 gm/dl (3.4-5.0); BLOOD UREA NITROGEN 11 mg/dl (7-18); CALCIUM 9.2 mg/dl (8.5-10.1); CARBON DIOXIDE 28 mmol/L (21-32); CREATININE 0.63 mg/dl (0.60-1.20); GLUCOSE 83 mg/dl (70-99); POTASSIUM 4.3 mmol/L (3.5-5.1); SODIUM 137 mmol/L (136-145)
[2017-06-23 12:45] LABS: ALKALINE PHOSPHATASE 64 U/L (45-117); ALT/SGPT 10 U/L (12-78); AST/SGOT 11 U/L (15-37); TOTAL PROTEIN 7.4 gm/dl (6.4-8.2)
== END | disposition home or self-care (01) ==
LOC: C.LABSPEC 08:28
PROVIDERS: ATTEND Internal Medicine Infectious Disease
DX: L03.115 Cellulitis of right lower limb (principal); R78.81 Bacteremia

== ENCOUNTER → 2017-06-27 | Outpatient (CLI) | payer OTHER ==
[~2017-06-27] MED LIST changes: -CEFA500C2 PO; -CLIN300C2 PO; -DAPT500I IV; -FERR325T18 PO; -VTMB12 PO
[2017-06-27 12:38] LABS: HEMATOCRIT 33.9 % (37-47); MEAN CELL VOLUME 87.1 fL (80-100); MEAN CORPUSCULAR HEMOGLOBIN 27.8 pg (25-34); MEAN CORPUSCULAR HGB CONC 31.9 g/dl (32-36); MEAN PLATELET VOLUME 10.3 fL (7.4-10.4); PLATELET COUNT 440 K/uL (130-400); RED BLOOD COUNT 3.89 M/uL (4.2-5.4); WHITE BLOOD COUNT 5.44 K/uL (4.8-10.8)
== END | disposition home or self-care (01) ==
LOC: C.LABSPEC 16:53
PROVIDERS: ATTEND Internal Medicine Infectious Disease
DX: L03.115 Cellulitis of right lower limb (principal); R78.81 Bacteremia

== ENCOUNTER → 2017-06-27 | Outpatient (CLI) | payer OTHER ==
[2017-06-27 19:24] LABS: ALT/SGPT 8 U/L (12-78); AST/SGOT 7 U/L (15-37); BLOOD UREA NITROGEN 10 mg/dl (7-18); BUN/CREATININE RATIO 17.2 (10-20); CALCIUM 8.7 mg/dl (8.5-10.1); CARBON DIOXIDE 29 mmol/L (21-32); CHLORIDE 103 mmol/L (98-107); CREATININE 0.58 mg/dl (0.60-1.20); GLUCOSE 91 mg/dl (70-99); POTASSIUM 4.1 mmol/L (3.5-5.1); SODIUM 136 mmol/L (136-145)
[2017-06-27 19:27] LABS: ALB/GLOB RATIO 0.6 (0.9-2); ALKALINE PHOSPHATASE 72 U/L (45-117)
== END | disposition home or self-care (01) ==
LOC: C.LABSPEC 12:12
PROVIDERS: ATTEND Internal Medicine Infectious Disease
DX: L03.115 Cellulitis of right lower limb (principal); R78.81 Bacteremia

== ENCOUNTER 2017-08-02 14:37 | Inpatient (IN) | payer OTHER ==
[~2017-08-02] VITALS: Ht 165.1 cm; Wt 142.6 kg
[~2017-08-02 14:37] MED LIST changes: -CEFA1INJ IV; +CEFA500C2 PO
[2017-08-02] MEDS ORDERED: ONDANSETRON INJ 2 MG/ML 2 ML VIAL IV PRN (16:15)
[2017-08-02] MEDS ORDERED: ALUMINUM/MAGNESIUM/SIMETH (MAALOX MAX) 30 ML UDC PO PRN (16:15)
[2017-08-02] MEDS ORDERED: MAGNESIUM HYDROXIDE SUSP 30 ML UDC PO PRN (16:15)
[2017-08-02] MEDS ORDERED: ACETAMINOPHEN 325 MG TAB PO PRN (16:15)
[2017-08-02] MEDS ORDERED: POLYETHYLENE (MIRALAX) 17 GM PACK PO PRN (16:15)
--- NOTE | 2017-08-02 16:36 | History and Physical ---
History & Physical Date & Time of Service: Aug 02, 2017 at 16:25 Chief Complaint: Cellulitis In Right Lower Leg Primary Care Physician: No Doctor, Assigned History of Present Illness Source: patient, family (sister at bedside), clinic records, hospital records This is a 46 y/o female with a history of RLE cellulitis with recent Group G strep bacteremia who presents for direct admission with worsening RLE cellulitis. The patient states that she first developed RLE cellulitis prior to [place]. She was initially hospitalized and placed on IV antibiotics. She did develop group G strep bacteremia during this admission. She completed a course of IV antibiotics and then was transitioned to oral antibiotics and following closely with Dr. Murphy. Her leg had been improving and she had actually been discharged from Dr. Murphy's services in late June and stopped on all antibiotics. She returned to work last week and began to develop worsening pain, swelling, and redness in her RLE again. She complains of soreness in the RLE that is worse with palpation, movement and weight bearing. She states her right leg is significantly more swollen than her left. She states she did have some chills a few nights ago and increased fatigue, but those have since resolved. She reports tingling in her right thigh. The patient denies fevers, sweats, chest pain, palpitations, claudication, cough, wheezing, shortness of breath, nausea, vomiting, abdominal pain, dysuria, hematuria, urinary retention, paralysis, weakness. Past Medical/Surgical History Medical Problems: (1) Morbid obesity Status: Chronic RLE Cellulitis with h/o group G strep bacteremia Family History Blood clots Diabetes mellitus Emphysema Hypertension Skin cancer Stroke Social History Smoking Status: Never Smoker Smokeless Tobacco Use: No Alcohol Use: none Drug Use: none Marital Status: single Housing status: lives alone Occupational Status: employed Immunizations History of Influenza Vaccine: Unknown History of Tetanus Vaccine?: Unknown History of Pneumococcal: No History of Hepatitis B Vaccine: Unknown Multi-Drug Resistant Organisms History of MDRO: No Allergies Coded Allergies: Penicillins (Verified Allergy, Mild, "ACTED FUNNY" A CHILD, 08/02/17) Home Medications Scheduled PRN Hydrocodone/Acetaminophen 5MG/325MG (Smoaks 5MG/325MG), 1 TABLET PO Q4 PRN for Pain Review of Systems Constitutional: +Chills. No fever, No sweats Eyes: No worsening of vision, No eye pain, No diplopia ENT: No hearing loss, No nasal symptoms, No trouble swallowing Respiratory: No cough, No wheezing, No shortness of breath Cardiovascular: No chest pain, No claudication, No palpitations Abdomen: No pain, No nausea, No vomiting Musculoskeletal: No joint pain, No muscle pain, No swelling Genitourinary - Female: No dysuria, No urinary retention, No hematuria Neurologic: +Tingling in right thigh. No paralysis, No weakness Integumentary: +Erythema, warmth, tenderness, swelling right lower leg. No rash, No itch Physical Exam General appearance: +Morbidly obese. Well-developed, well-nourished, no apparent distress Head: Normocephalic, atraumatic Eyes: Normal inspection, PERRL, EOMI ENT: Normal ENT inspection, hearing grossly normal, pharynx normal Neck: Supple, no JVD, trachea midline Respiratory/Chest: Lungs clear to auscultation, normal breath sounds, no respiratory distress Cardiovascular: Regular rate & rhythm, no gallop, no murmur Abdomen/GI: Normal bowel sounds, non-tender, soft Extremities/Musculoskeletal: Normal inspection, no calf tenderness, no pedal edema Neurological/Psych: Alert, normal mood/affect, oriented x 3 Skin: +Circumferential erythema around right lower leg from ankle to just below the knee. Warm to the touch. 3+ pitting edema. TTP. Normal color, warm /dry, no rash Diagnostics Laboratory Results Results Past 24 Hours Test 08/02/17 16:15 Range/Units Microbiology Results 08/02/17 Blood Culture, Ordered Pending 08/02/17 Blood Culture, Ordered Pending Impression Assessment and Plan 46 y/o female with a history of RLE cellulitis with recent Group G strep bacteremia who presents for direct admission with worsening RLE cellulitis. The patient had previously been hospitalized with the same issue plus group G strep bacteremia, and had been treated with IV antibiotics. The patient had been improving and was discharged from [facility] when her symptoms returned. RLE cellulitis -Admit to med/surg -Consult infectious disease, appreciate recs -Stat blood cultures -Daptomycin IV per Dr. Murphy -Continue Smoaks 5/325 1 tab PO q4h prn pain DVT prophylaxis -Enoxaparin 40 mg SC q24h Code Status -Level I, FULL RESUSCITATION STATUS Resident Physician Supervision Note: Pt evaluated independently. I discussed the case with the PA and agree with the findings and plan as documented in the note. Any exceptions or clarifications are listed here: 46 y/o F Hx recurrent cellulitis, bacteremia, morbid obesity - she is sent in from the ID office due to worsening cellulitis of her RLE - she denies fevers presently OE AAO x 3 S1,2 R CTAB NT, ND + edema - impressive cellulitis of RLE approaching knee P: Per ID instruction - placed on Daptomycin - cultures obtained ID to see AM Documented By: Adria Araiza Level of Care Med/Surg Resuscitation Status FULL RESUSCITATION VTE Prophylaxis VTE Risk Assessment Done? Y/N: Yes Risk Level: Moderate Given or contraindicated: Enoxaparin (Lovenox)SQ
[2017-08-02 17:02] LABS: BASO % 0.2 %; BASO ABS # 0.02 K/uL (0-0.2); EOS % 0.6 %; EOS ABS # 0.05 K/uL (0-0.5); HEMATOCRIT 35.1 % (37-47); HEMOGLOBIN 11.6 g/dL (12.0-16.0); IG# 0.02 K/uL (0.00-0.02); LYMPH % 21.7 %; LYMPH ABS # 1.85 K/uL (1.2-3.4); MEAN CELL VOLUME 85.2 fL (80-100); MEAN CORPUSCULAR HEMOGLOBIN 28.2 pg (25-34); MEAN PLATELET VOLUME 9.2 fL (7.4-10.4); MONO % 4.8 %; MONO ABS # 0.41 K/uL (0.11-0.59); NEUT % 72.5 %; NEUT ABS # 6.16 K/uL (1.4-6.5); PLATELET COUNT 329 K/uL (130-400); RED CELL DISTRIBUTION WIDTH CV 15.5 % (11.5-14.5); RED CELL DISTRIBUTION WIDTH SD 48.1 fL (36.4-46.3); WHITE BLOOD COUNT 8.51 K/uL (4.8-10.8)
[2017-08-02 17:19] LABS: ALBUMIN 3.3 gm/dl (3.4-5.0); ALT/SGPT 13 U/L (12-78); BLOOD UREA NITROGEN 14 mg/dl (7-18); CALCIUM 8.9 mg/dl (8.5-10.1); CARBON DIOXIDE 27 mmol/L (21-32); CREATININE 0.61 mg/dl (0.60-1.20); GLUCOSE 89 mg/dl (70-99); POTASSIUM 3.5 mmol/L (3.5-5.1); SODIUM 139 mmol/L (136-145)
[2017-08-02 17:22] VITALS: BMI 23.8
[2017-08-02 17:22] LABS: ALKALINE PHOSPHATASE 76 U/L (45-117); AST/SGOT 9 U/L (15-37); TOTAL PROTEIN 8.2 gm/dl (6.4-8.2)
[2017-08-02] MEDS ORDERED: PATIENT'S HEIGHT AND/OR WEIGHT NEEDED SCH (17:30)
[2017-08-02 17:33] LABS: PTT PATIENT 25.1 SECONDS (21.0-31.0)
[2017-08-02] MEDS: HYDROCODONE/ACETAMOPHEN 5/325MG TAB PO PRN ×2 (17:35→22:46)
[2017-08-02] MEDS: DAPTOmycin IV 600 MG in SYRINGE 0 ML IV SCH (18:13)
[2017-08-02 18:45] VITALS: BP 161/105; PULSE 84; TEMP 36.6; O2SAT 99; Ht 165.1 cm; Wt 142.6 kg
[2017-08-02] MEDS: ENOXAPARIN 40 MG/0.4 ML SYR SQ SCH (20:41)
[2017-08-02 23:25] VITALS: BP 122/87; PULSE 75; TEMP 36.8; O2SAT 97
[2017-08-03 07:28] VITALS: BP 131/84; PULSE 72; TEMP 36.7; O2SAT 97
[2017-08-03 07:32] LABS: HEMATOCRIT 32.4 % (37-47); HEMOGLOBIN 10.5 g/dL (12.0-16.0); MEAN CELL VOLUME 85.3 fL (80-100); MEAN CORPUSCULAR HEMOGLOBIN 27.6 pg (25-34); MEAN CORPUSCULAR HGB CONC 32.4 g/dl (32-36); MEAN PLATELET VOLUME 9.1 fL (7.4-10.4); PLATELET COUNT 318 K/uL (130-400); RED CELL DISTRIBUTION WIDTH CV 15.5 % (11.5-14.5); RED CELL DISTRIBUTION WIDTH SD 48.4 fL (36.4-46.3); WHITE BLOOD COUNT 5.08 K/uL (4.8-10.8)
[2017-08-03] MEDS: HYDROCODONE/ACETAMOPHEN 5/325MG TAB PO PRN ×3 (07:32→21:53)
[2017-08-03 07:55] LABS: CALCIUM 8.4 mg/dl (8.5-10.1); CREATININE 0.54 mg/dl (0.60-1.20); POTASSIUM 3.6 mmol/L (3.5-5.1)
[2017-08-03] MEDS ORDERED: DAPTOmycin IV 600 MG in SODIUM CHLORIDE 0.9% 50ML 50 ML IV SCH (09:00)
--- NOTE | 2017-08-03 10:43 | Medical Consult ---
Consultation Date of Consultation: Aug 03, 2017. Attending Physician: Rosalio Nunes MD Reason for Consultation: Right lower extremity cellulitis History of Present Illness 46-year-old female well known to me from recent hospitalization and outpatient follow-up with history of right lower extremity cellulitis with group G streptococcal bacteremia. She was treated with IV antibiotics and transition to oral cefadroxil which she recently completed. She presented to the office yesterday with markedly worsening redness, swelling, and pain of her right leg with evidence of recurrent cellulitis. She was referred to the hospital for admission, and as discussed, started on daptomycin. Has had minimal spread of erythema since yesterday. Still complaining of severe pain in her right leg, rated 7/10 in intensity. Currently afebrile and tolerating antibiotic without apparent difficulty. Past Medical/Surgical History Medical Problems: (1) Encounter for wound re-check Status: Acute (2) Ingrowing toenail with infection Status: Acute (3) Obesity Status: Chronic Medical Problems: (1) Cellulitis of right leg (2) Obesity Family History Blood clots Diabetes mellitus Emphysema Hypertension Skin cancer Stroke Social History Smoking Status: Never Smoker Smokeless Tobacco Use: No Alcohol Use: none Drug Use: none Marital Status: single Occupation Status: employed Allergies Coded Allergies: Penicillins (Verified Allergy, Mild, "ACTED FUNNY" A CHILD, 08/02/17) Current Inpatient Medications Current Inpatient Medications Medications (Trade) Dose Ordered Sig/Brady Route Start Time Stop Time Status Last Admin Dose Admin Enoxaparin Sodium (Lovenox Inj) 40 mg Q24H SQ 08/02/17 18:00 09/01/17 17:59 08/02/17 20:41 40 MG Acetaminophen (Tylenol Tab) 650 mg Q4H PRN PO 08/02/17 16:15 09/01/17 16:14 Al Hydrox/Mg Hydrox/Simethicone (Maalox Max Susp) 15 ml Q4H PRN PO 08/02/17 16:15 09/01/17 16:14 Magnesium Hydroxide (Milk Of Magnesia Susp) 30 ml Q6H PRN PO 08/02/17 16:15 09/01/17 16:14 Polyethylene (Miralax Powder Packet) 17 gm DAILY PRN PO 08/02/17 16:15 09/01/17 16:14 Ondansetron HCl (Zofran Inj) 4 mg Q6H PRN IV 08/02/17 16:15 09/01/17 16:14 Acetaminophen/ Hydrocodone Bitart (Liscomb 5/325 Tab) 1 tab Q4 PRN PO 08/02/17 16:30 08/16/17 16:29 08/03/17 07:32 1 TAB Daptomycin 600 mg/ Syringe 12 ml @ 6 mls/min Q24H IV 08/02/17 18:00 08/12/17 17:59 08/02/17 18:13 6 MLS/MIN Review of Systems All systems were reviewed and are negative except as per HPI Physical Exam Date Time Temp Pulse Resp B/P (MAP) Pulse Ox O2 Delivery O2 Flow Rate FiO2 08/03/17 07:55 Room Air 08/03/17 07:28 36.7 72 16 131/84 (100) 97 08/03/17 00:05 Room Air 08/02/17 23:25 36.8 75 18 122/87 (99) 97 Room Air 08/02/17 18:45 36.6 84 18 161/105 99 Room Air General Appearance: WD/WN, no apparent distress, + obese Head: normocephalic, atraumatic Eyes: normal inspection, EOMI, sclerae normal ENT: normal ENT inspection, pharynx normal Neck: supple, no adenopathy, thyroid normal, trachea midline Respiratory/Chest: chest non-tender, lungs clear, normal breath sounds, no respiratory distress Cardiovascular: regular rate, rhythm, no gallop, no murmur Abdomen/GI: normal bowel sounds, non tender, soft, no organomegaly Back: normal inspection, no CVA tenderness Extremities/Musculoskelatal: normal capillary refill, + inflammation (Right leg ), + swelling (Right leg) Neurologic/Psych: alert, normal mood/affect, oriented x 3 Skin: normal color, no rash, + pertinent finding (Right lower extremity cellulitis from foot to just above knee) Lymphatic: no adenopathy Laboratory Results Date/Time Source Procedure Growth Status 08/02/17 16:53 Blood Blood Culture Pending Received 08/02/17 16:42 Blood Blood Culture Pending Received Last 24 Hours Test 08/02/17 16:42 08/03/17 07:01 White Blood Count 8.51 K/uL 5.08 K/uL Red Blood Count 4.12 M/uL 3.80 M/uL Hemoglobin 11.6 g/dL 10.5 g/dL Hematocrit 35.1 % 32.4 % Mean Corpuscular Volume 85.2 fL 85.3 fL Mean Corpuscular Hemoglobin 28.2 pg 27.6 pg Mean Corpuscular Hemoglobin Concent 33.0 g/dl 32.4 g/dl Platelet Count 329 K/uL 318 K/uL Mean Platelet Volume 9.2 fL 9.1 fL Neutrophils (%) (Auto) 72.5 % Lymphocytes (%) (Auto) 21.7 % Monocytes (%) (Auto) 4.8 % Eosinophils (%) (Auto) 0.6 % Basophils (%) (Auto) 0.2 % Neutrophils # (Auto) 6.16 K/uL Lymphocytes # (Auto) 1.85 K/uL Monocytes # (Auto) 0.41 K/uL Eosinophils # (Auto) 0.05 K/uL Basophils # (Auto) 0.02 K/uL RDW Standard Deviation 48.1 fL 48.4 fL RDW Coefficient of Variation 15.5 % 15.5 % Immature Granulocyte % (Auto) 0.2 % Immature Granulocyte # (Auto) 0.02 K/uL Prothrombin Time 10.8 SECONDS Prothromb Time International Ratio 1.0 Activated Partial Thromboplast Time 25.1 SECONDS Partial Thromboplastin Ratio 1.0 Sodium Level 139 mmol/L 137 mmol/L Potassium Level 3.5 mmol/L 3.6 mmol/L Chloride Level 104 mmol/L 103 mmol/L Carbon Dioxide Level 27 mmol/L 28 mmol/L Anion Gap 8.0 mmol/L 6.0 mmol/L Blood Urea Nitrogen 14 mg/dl 12 mg/dl Creatinine 0.61 mg/dl 0.54 mg/dl Estimated GFR () 127.8 133.0 Estimated GFR (Non- 110.3 114.8 BUN/Creatinine Ratio 22.2 22.0 Random Glucose 89 mg/dl 88 mg/dl Calcium Level 8.9 mg/dl 8.4 mg/dl Total Bilirubin 0.5 mg/dl Direct Bilirubin 0.1 mg/dl Aspartate Amino Transf (AST/SGOT) 9 U/L Alanine Aminotransferase (ALT/SGPT) 13 U/L Alkaline Phosphatase 76 U/L Total Protein 8.2 gm/dl Albumin 3.3 gm/dl Est Creatinine Clear Calc Drug Dose 191.5 ml/min Assessment & Plan Recurrent right lower extremity cellulitis with prior episode of cellulitis with group G streptococcal bacteremia. Patient be treated with IV daptomycin, with length of IV therapy to be determined by clinical response and culture results. Will follow. Patient may be candidate for chronic suppressive therapy given recurrent cellulitis. Will discuss with her once acute episode has subsided.
[2017-08-03 15:36] VITALS: BP 143/84; PULSE 74; TEMP 36.7; O2SAT 98
[2017-08-03] MEDS: ENOXAPARIN 40 MG/0.4 ML SYR SQ SCH (18:26)
[2017-08-03] MEDS: DAPTOmycin IV 600 MG in SYRINGE 0 ML IV SCH (18:30)
--- NOTE | 2017-08-03 19:30 | Progress Note ---
Subjective Date of Service: Aug 03, 2017. Subjective Pt evaluation today including: conversation w/ patient, conversation w/ family (sister at bedside), physical exam, chart review, lab review, review of inpatient medication list Pain: right leg PO Intake: no issues Voiding: no voiding problems patient denies any recent travel or surgery she c/o pain in the RLE her recent cellulitis fully resolved, then recurred she does have mild LE edema on a chronic basis Problem List Medical Problems: (1) Encounter for wound re-check Status: Acute (2) Ingrowing toenail with infection Status: Acute (3) Obesity Status: Chronic Review of Systems Constitutional: No fever, No chills Respiratory: No shortness of breath Cardiac: No chest pain Abdomen: No pain Objective Vital Signs Date Time Temp Pulse Resp B/P (MAP) Pulse Ox O2 Delivery O2 Flow Rate FiO2 08/03/17 15:36 36.7 74 18 143/84 (103) 98 Room Air 08/03/17 07:55 Room Air 08/03/17 07:28 36.7 72 16 131/84 (100) 97 08/03/17 00:05 Room Air 08/02/17 23:25 36.8 75 18 122/87 (99) 97 Room Air 08/02/17 18:45 36.6 84 18 161/105 99 Room Air Physical Exam General Appearance: no apparent distress, + obese ENT: pharynx normal Neck: no JVD Respiratory/Chest: lungs clear, no respiratory distress, no accessory muscle use Cardiovascular: regular rate, rhythm, no gallop, no murmur Abdomen: normal bowel sounds, non tender, soft, no organomegaly Extremities: + pedal edema (trace on left; 2+ (minimum) on right extending all the way up to the calf ), + pertinent finding (popliteal, DP, and pos tib pulses 2+ on right; DP/pos tib pulses on left 2+ ) Skin: + pertinent finding (stasis changes left mccall (distal); RLE - extensive cellulitis extending from the dorsum of the foot to just inferior to the right knee; warm to touch, tender; there is also a fluid filled blister, medial aspect of right leg just below level of the calf ) Laboratory Results Last 24 Hours Test 08/02/17 16:42 08/03/17 07:01 White Blood Count 8.51 K/uL 5.08 K/uL Red Blood Count 4.12 M/uL 3.80 M/uL Hemoglobin 11.6 g/dL 10.5 g/dL Hematocrit 35.1 % 32.4 % Mean Corpuscular Volume 85.2 fL 85.3 fL Mean Corpuscular Hemoglobin 28.2 pg 27.6 pg Mean Corpuscular Hemoglobin Concent 33.0 g/dl 32.4 g/dl Platelet Count 329 K/uL 318 K/uL Mean Platelet Volume 9.2 fL 9.1 fL Neutrophils (%) (Auto) 72.5 % Lymphocytes (%) (Auto) 21.7 % Monocytes (%) (Auto) 4.8 % Eosinophils (%) (Auto) 0.6 % Basophils (%) (Auto) 0.2 % Neutrophils # (Auto) 6.16 K/uL Lymphocytes # (Auto) 1.85 K/uL Monocytes # (Auto) 0.41 K/uL Eosinophils # (Auto) 0.05 K/uL Basophils # (Auto) 0.02 K/uL RDW Standard Deviation 48.1 fL 48.4 fL RDW Coefficient of Variation 15.5 % 15.5 % Immature Granulocyte % (Auto) 0.2 % Immature Granulocyte # (Auto) 0.02 K/uL Prothrombin Time 10.8 SECONDS Prothromb Time International Ratio 1.0 Activated Partial Thromboplast Time 25.1 SECONDS Partial Thromboplastin Ratio 1.0 Sodium Level 139 mmol/L 137 mmol/L Potassium Level 3.5 mmol/L 3.6 mmol/L Chloride Level 104 mmol/L 103 mmol/L Carbon Dioxide Level 27 mmol/L 28 mmol/L Anion Gap 8.0 mmol/L 6.0 mmol/L Blood Urea Nitrogen 14 mg/dl 12 mg/dl Creatinine 0.61 mg/dl 0.54 mg/dl Estimated GFR () 127.8 133.0 Estimated GFR (Non- 110.3 114.8 BUN/Creatinine Ratio 22.2 22.0 Random Glucose 89 mg/dl 88 mg/dl Calcium Level 8.9 mg/dl 8.4 mg/dl Total Bilirubin 0.5 mg/dl Direct Bilirubin 0.1 mg/dl Aspartate Amino Transf (AST/SGOT) 9 U/L Alanine Aminotransferase (ALT/SGPT) 13 U/L Alkaline Phosphatase 76 U/L Total Protein 8.2 gm/dl Albumin 3.3 gm/dl Est Creatinine Clear Calc Drug Dose 191.5 ml/min Assessment and Plan 46yo female - 1. recurrent RLE cellulitis - appreciate Dr. Murphy's consultation from ID. Agree with daptomycin. Defer abx selection/length of Rx to Dr. Murphy. no clinical evidence of necrotizing process. clinically appears to have intact arterial circulation in the RLE. Labs do not suggest T2DM. Question if she has venous insufficiency/chronic lymphedema (mild) setting her up for this. 2. DVT proph - lovenox. 3. morbid obesity - BMI 52. 4. elevated BP w/o dx of HTN - follow BPs for now. 5. anemia - check iron studies, b12, folate in AM to be complete. consider PT, OT if gait is impaired from RLE infection Continued [facility] stay due to: multiple IV medications needed Discharge planning: home
[2017-08-03 22:43] VITALS: BP 116/74; PULSE 70; TEMP 36.6; O2SAT 96
[2017-08-04 07:39] LABS: HEMATOCRIT 32.1 % (37-47); HEMOGLOBIN 10.4 g/dL (12.0-16.0); MEAN CELL VOLUME 84.9 fL (80-100); MEAN CORPUSCULAR HEMOGLOBIN 27.5 pg (25-34); MEAN CORPUSCULAR HGB CONC 32.4 g/dl (32-36); PLATELET COUNT 319 K/uL (130-400); RED CELL DISTRIBUTION WIDTH CV 15.3 % (11.5-14.5); WHITE BLOOD COUNT 5.28 K/uL (4.8-10.8)
[2017-08-04 07:58] VITALS: BP 87/58; PULSE 71; TEMP 36.9; O2SAT 97
[2017-08-04 08:10] LABS: CALCIUM 8.7 mg/dl (8.5-10.1); CREATININE 0.5 mg/dl (0.60-1.20); POTASSIUM 3.7 mmol/L (3.5-5.1)
[2017-08-04 08:29] VITALS: BP 136/84; PULSE 79
[2017-08-04] MEDS: CYANOCOBALAMIN 500 MCG TAB (VIT B-12) PO SCH (11:07)
[2017-08-04] MEDS: FERROUS SULFATE 325 MG TAB PO SCH ×2 (11:07→21:01)
[2017-08-04 15:07] VITALS: BP 130/90; PULSE 73; TEMP 36.5; O2SAT 97
--- NOTE | 2017-08-04 15:14 | Infectious Disease Progress Nt ---
Progress Note Date of Service Aug 04, 2017. Subjective Pt evaluation today including: conversation w/ patient, physical exam, chart review, lab review, review of studies, conversation w/ information systems consultant, review of inpatient medication list Still with severe pain in her right leg. Erythema slightly better, but developing again large blister on the medial right lower leg. Remains afebrile. Blood cultures negative so far. All Other Systems: Reviewed and Negative Medications Current Inpatient Medications Medications (Trade) Dose Ordered Sig/Brady Route Start Time Stop Time Status Last Admin Dose Admin Enoxaparin Sodium (Lovenox Inj) 40 mg Q24H SQ 08/02/17 18:00 09/01/17 17:59 08/03/17 18:26 40 MG Acetaminophen (Tylenol Tab) 650 mg Q4H PRN PO 08/02/17 16:15 09/01/17 16:14 Al Hydrox/Mg Hydrox/Simethicone (Maalox Max Susp) 15 ml Q4H PRN PO 08/02/17 16:15 09/01/17 16:14 Magnesium Hydroxide (Milk Of Magnesia Susp) 30 ml Q6H PRN PO 08/02/17 16:15 09/01/17 16:14 Polyethylene (Miralax Powder Packet) 17 gm DAILY PRN PO 08/02/17 16:15 09/01/17 16:14 Ondansetron HCl (Zofran Inj) 4 mg Q6H PRN IV 08/02/17 16:15 09/01/17 16:14 Acetaminophen/ Hydrocodone Bitart ([place] 5/325 Tab) 1 tab Q4 PRN PO 08/02/17 16:30 08/16/17 16:29 08/03/17 21:53 1 TAB Daptomycin 600 mg/ Syringe 12 ml @ 6 mls/min Q24H IV 08/02/17 18:00 08/12/17 17:59 08/03/17 18:30 6 MLS/MIN Diphenhydramine HCl (Benadryl Cap) 25 mg Q6H PRN PO 08/04/17 00:15 09/03/17 00:14 Ferrous Sulfate (Feosol Tab) 325 mg BID PO 08/04/17 10:30 09/03/17 10:29 08/04/17 11:07 325 MG Cyanocobalamin (Vitamin B-12 Tab) 1,000 mcg QAM PO 08/04/17 10:45 09/03/17 10:44 08/04/17 11:07 1,000 MCG Objective Vital Signs Date Time Temp Pulse Resp B/P (MAP) Pulse Ox O2 Delivery O2 Flow Rate FiO2 08/04/17 15:07 36.5 73 18 130/90 (103) 97 Room Air 08/04/17 08:29 79 136/84 (101) 08/04/17 07:58 36.9 71 17 87/58 (68) 97 Room Air 08/04/17 07:45 Room Air 08/03/17 23:35 Room Air 08/03/17 22:43 36.6 70 18 116/74 (88) 96 08/03/17 16:08 Room Air 08/03/17 15:36 36.7 74 18 143/84 (103) 98 Room Air Physical Exam General Appearance: WD/WN, no apparent distress, + obese Eyes: normal inspection, EOMI, sclerae normal ENT: normal ENT inspection, pharynx normal Neck: supple, no adenopathy, trachea midline Respiratory/Chest: chest non-tender, lungs clear, normal breath sounds, no respiratory distress Cardiovascular: regular rate, rhythm, no gallop, no murmur Abdomen: normal bowel sounds, non tender, soft, no organomegaly Extremities: + inflammation (Right leg), + swelling (Right leg) Neurologic/Psychiatric: alert, oriented x 3 Skin: normal color, no rash, + pertinent finding (Erythema right lower leg slightly better, large developing blister medial lower leg. 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 No Doctor, Assigned ORDERED: BLOOD CULTURE Procedure Result Verified Site BLD CULT Preliminary 08/04/17-800 NO GROWTH TO DATE. Last 24 Hours Test 08/04/17 07:16 White Blood Count 5.28 K/uL Red Blood Count 3.78 M/uL Hemoglobin 10.4 g/dL Hematocrit 32.1 % Mean Corpuscular Volume 84.9 fL Mean Corpuscular Hemoglobin 27.5 pg Mean Corpuscular Hemoglobin Concent 32.4 g/dl RDW Standard Deviation 48.0 fL RDW Coefficient of Variation 15.3 % Platelet Count 319 K/uL Mean Platelet Volume 9.0 fL Sodium Level 137 mmol/L Potassium Level 3.7 mmol/L Chloride Level 103 mmol/L Carbon Dioxide Level 28 mmol/L Anion Gap 6.0 mmol/L Blood Urea Nitrogen 10 mg/dl Creatinine 0.50 mg/dl Est Creatinine Clear Calc Drug Dose 206.8 ml/min Estimated GFR () 136.4 Estimated GFR (Non- 117.7 BUN/Creatinine Ratio 19.2 Random Glucose 89 mg/dl Calcium Level 8.7 mg/dl Iron Level 23 mcg/dl Total Iron Binding Capacity 241 mcg/dl Transferrin 184 mg/dl Transferrin % Saturation 9 % Ferritin 83.1 ng/ml Vitamin B12 Level 294 pg/mL Folate 7.97 ng/mL Assessment and Plan Recurrent right lower extremity cellulitis with prior episode of cellulitis with group G streptococcal bacteremia. Patient appears to be starting to respond to IV daptomycin, would continue for now. Would recommend aspirating blister for culture to ensure no on covered pathogens. We will continue to follow.
[2017-08-04] MEDS: HYDROCODONE/ACETAMOPHEN 5/325MG TAB PO PRN ×2 (15:57→23:26)
[2017-08-04 16:00] VITALS: O2SAT 97
[2017-08-04] MEDS: DAPTOmycin IV 600 MG in SYRINGE 0 ML IV SCH (18:21)
[2017-08-04] MEDS: ENOXAPARIN 40 MG/0.4 ML SYR SQ SCH (18:22)
--- NOTE | 2017-08-04 18:29 | Progress Note ---
Subjective Date of Service: Aug 04, 2017. Subjective Pt evaluation today including: conversation w/ patient, physical exam, chart review, lab review Pain: RLE - mild PO Intake: normal Voiding: no voiding problems no acute events overnight she believes the RLE looks better - not as red; maybe a little less pain does have h/o heavy menses no history of gastric bypass surgery, malabsorption, or GI tract issues not a vegetarian Problem List Medical Problems: (1) Encounter for wound re-check Status: Acute (2) Ingrowing toenail with infection Status: Acute (3) Obesity Status: Chronic Review of Systems Constitutional: No fever, No chills Respiratory: No shortness of breath Abdomen: No pain Objective Vital Signs Date Time Temp Pulse Resp B/P (MAP) Pulse Ox O2 Delivery O2 Flow Rate FiO2 08/04/17 15:07 36.5 73 18 130/90 (103) 97 Room Air 08/04/17 08:29 79 136/84 (101) 08/04/17 07:58 36.9 71 17 87/58 (68) 97 Room Air 08/04/17 07:45 Room Air 08/03/17 23:35 Room Air 08/03/17 22:43 36.6 70 18 116/74 (88) 96 Physical Exam General Appearance: no apparent distress, + obese ENT: pharynx normal Neck: no JVD Respiratory/Chest: lungs clear, no respiratory distress, no accessory muscle use Cardiovascular: regular rate, rhythm, no gallop, no murmur Abdomen: normal bowel sounds, non tender, soft, no organomegaly Extremities: + pedal edema (right leg - scantly better, 1-2+ from the foot to below the knee; left leg - trace edema ) Skin: + pertinent finding (venous stasis changes LLE; cellulitis of RLE - not as intensely red today and less warm to touch; less tenderness w/ palpation as well; erythema starting to retreat from demarkation lines drawn on the proximal tib-fib/mccall; blister on medial aspect is larger; there is also a second yet smaller blister medially ) Laboratory Results Last 24 Hours Test 08/04/17 07:16 White Blood Count 5.28 K/uL Red Blood Count 3.78 M/uL Hemoglobin 10.4 g/dL Hematocrit 32.1 % Mean Corpuscular Volume 84.9 fL Mean Corpuscular Hemoglobin 27.5 pg Mean Corpuscular Hemoglobin Concent 32.4 g/dl RDW Standard Deviation 48.0 fL RDW Coefficient of Variation 15.3 % Platelet Count 319 K/uL Mean Platelet Volume 9.0 fL Sodium Level 137 mmol/L Potassium Level 3.7 mmol/L Chloride Level 103 mmol/L Carbon Dioxide Level 28 mmol/L Anion Gap 6.0 mmol/L Blood Urea Nitrogen 10 mg/dl Creatinine 0.50 mg/dl Est Creatinine Clear Calc Drug Dose 206.8 ml/min Estimated GFR () 136.4 Estimated GFR (Non- 117.7 BUN/Creatinine Ratio 19.2 Random Glucose 89 mg/dl Calcium Level 8.7 mg/dl Iron Level 23 mcg/dl Total Iron Binding Capacity 241 mcg/dl Transferrin 184 mg/dl Transferrin % Saturation 9 % Ferritin 83.1 ng/ml Vitamin B12 Level 294 pg/mL Folate 7.97 ng/mL Assessment and Plan 46yo female - 1. recurrent RLE cellulitis - appreciate Dr. Murphy's consultation from ID. Day #3 of daptomycin. Defer abx selection/length of Rx to Dr. Murphy. no clinical evidence of necrotizing process. clinically appears to have intact arterial circulation in the RLE. Labs do not suggest T2DM. Overall it appears improved today. Question if she has venous insufficiency/chronic lymphedema (mild) setting her up for this. Wound care consult placed for management of blisters; culture of blister recommended by Dr. Murphy. 2. DVT proph - lovenox. 3. morbid obesity - BMI 52. 4. elevated BP w/o dx of HTN - pt reports office readings also high. Suspect essential HTN. Follow for now. 5. anemia - likely combination of Fe def and B12 def. Replace both orally. progressing Continued [facility] stay due to: multiple IV medications needed Discharge planning: home
[2017-08-04 21:51] VITALS: BP 127/84; PULSE 66; TEMP 36.8; O2SAT 94
[2017-08-05] MEDS: FERROUS SULFATE 325 MG TAB PO SCH ×2 (07:40→19:42)
[2017-08-05] MEDS: CYANOCOBALAMIN 500 MCG TAB (VIT B-12) PO SCH (07:40)
[2017-08-05] MEDS: HYDROCODONE/ACETAMOPHEN 5/325MG TAB PO PRN ×2 (07:41→16:46)
[2017-08-05 07:52] VITALS: BP 156/86; PULSE 75; TEMP 36.5; O2SAT 93
[2017-08-05 08:00] LABS: HEMATOCRIT 31.9 % (37-47); HEMOGLOBIN 10.5 g/dL (12.0-16.0); MEAN CELL VOLUME 85.1 fL (80-100); MEAN CORPUSCULAR HGB CONC 32.9 g/dl (32-36); PLATELET COUNT 333 K/uL (130-400); RED CELL DISTRIBUTION WIDTH CV 15.4 % (11.5-14.5); RED CELL DISTRIBUTION WIDTH SD 47.9 fL (36.4-46.3); WHITE BLOOD COUNT 5.62 K/uL (4.8-10.8)
[2017-08-05 08:27] LABS: CALCIUM 8.7 mg/dl (8.5-10.1); CREATININE 0.5 mg/dl (0.60-1.20)
[2017-08-05 15:37] VITALS: BP 153/90; PULSE 75; TEMP 36.7; O2SAT 98
[2017-08-05 16:38] VITALS: O2SAT 98
[2017-08-05] MEDS: DAPTOmycin IV 600 MG in SYRINGE 0 ML IV SCH (16:45)
[2017-08-05] MEDS: ENOXAPARIN 40 MG/0.4 ML SYR SQ SCH (16:46)
--- NOTE | 2017-08-05 23:01 | Progress Note ---
Subjective Date of Service: Aug 05, 2017. Subjective Pt evaluation today including: conversation w/ patient, physical exam, chart review, lab review Pain: RLE but much improved PO Intake: normal Voiding: no voiding problems again patient feels right leg is getting much better less redness and warmth she does report some pruritis over the leg some of the blisters did indeed pop overnight exuding clear serous fluid Problem List Medical Problems: (1) Encounter for wound re-check Status: Acute (2) Ingrowing toenail with infection Status: Acute (3) Obesity Status: Chronic Review of Systems Constitutional: No fever, No chills Respiratory: No shortness of breath Cardiac: No chest pain Abdomen: No pain, No diarrhea Objective Vital Signs Date Time Temp Pulse Resp B/P (MAP) Pulse Ox O2 Delivery O2 Flow Rate FiO2 08/05/17 16:38 98 Room Air 08/05/17 15:37 36.7 75 16 153/90 (111) 98 Room Air 08/05/17 07:52 36.5 75 16 156/86 (109) 93 08/05/17 07:45 Room Air 08/04/17 23:28 Room Air Physical Exam General Appearance: no apparent distress, + obese ENT: pharynx normal Neck: no JVD Respiratory/Chest: lungs clear, no respiratory distress, no accessory muscle use Cardiovascular: regular rate, rhythm, no gallop, + systolic murmur (1/6 MEGGAN LSB ) Abdomen: normal bowel sounds, non tender, soft, no organomegaly Extremities: + pedal edema (1-2+ right foot extending proximally up the leg; trace edema left leg; pulses 2+ b/l ) Neurologic/Psychiatric: alert, oriented x 3 Skin: + pertinent finding (cellulitis, RLE - marked improvement once again; heat/warmth is resolved; redness again less intense; redness again retreating even further from demarkation lines drawn on proximal mccall; large medial blister has opened) Laboratory Results Last 24 Hours Test 08/05/17 07:28 White Blood Count 5.62 K/uL Red Blood Count 3.75 M/uL Hemoglobin 10.5 g/dL Hematocrit 31.9 % Mean Corpuscular Volume 85.1 fL Mean Corpuscular Hemoglobin 28.0 pg Mean Corpuscular Hemoglobin Concent 32.9 g/dl RDW Standard Deviation 47.9 fL RDW Coefficient of Variation 15.4 % Platelet Count 333 K/uL Mean Platelet Volume 9.0 fL Sodium Level 139 mmol/L Potassium Level 4.0 mmol/L Chloride Level 104 mmol/L Carbon Dioxide Level 31 mmol/L Anion Gap 3.0 mmol/L Blood Urea Nitrogen 11 mg/dl Creatinine 0.50 mg/dl Est Creatinine Clear Calc Drug Dose 206.8 ml/min Estimated GFR () 136.4 Estimated GFR (Non- 117.7 BUN/Creatinine Ratio 21.6 Random Glucose 86 mg/dl Calcium Level 8.7 mg/dl Assessment and Plan 46yo female - 1. recurrent RLE cellulitis - again improved. appreciate Dr. Murphy's consultation from ID. Day #4 of daptomycin. Defer abx selection/length of Rx to Dr. Murphy. Question if she has venous insufficiency/chronic lymphedema (mild) setting her up for recurrent infections (has chronic venous stasis skin changes on left leg and also on right). Wound care consult placed for management of blisters. 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 Benadryl prn itching. 2. DVT proph - lovenox. 3. morbid obesity - BMI 52. 4. elevated BP w/o dx of HTN - office records reviewed - highest readings in the office about 130-135. May have pre-HTN. Follow for now. 5. anemia - likely combination of Fe def and B12 def. Replace both orally. progressing nicely Continued [facility] stay due to: multiple IV medications needed Discharge planning: home
[2017-08-05 23:31] VITALS: BP 157/84; PULSE 63; TEMP 36.6; O2SAT 100
[2017-08-06 06:42] VITALS: BP 134/86; PULSE 65; TEMP 36.5; O2SAT 98
[2017-08-06] MEDS: CYANOCOBALAMIN 500 MCG TAB (VIT B-12) PO SCH (08:35)
[2017-08-06] MEDS: FERROUS SULFATE 325 MG TAB PO SCH ×2 (08:35→20:47)
[2017-08-06] MEDS: HYDROCODONE/ACETAMOPHEN 5/325MG TAB PO PRN ×2 (08:41→20:47)
--- NOTE | 2017-08-06 09:03 | Progress Note ---
Subjective Date of Service: Aug 06, 2017. Subjective pt has had some increased pain in her leg and some drainage otherwise no complaints Problem List Medical Problems: (1) Encounter for wound re-check Status: Acute (2) Ingrowing toenail with infection Status: Acute (3) Obesity Status: Chronic Review of Systems Constitutional: + weakness, + fatigue, No fever, No chills Respiratory: No cough, No shortness of breath Cardiac: + edema, No chest pain Musculoskeletal: + joint pain, + muscle pain, + swelling Psychiatric: No depression symptoms, No anhedonism Skin: + rash, + new/changing skin lesions, + color change Objective Vital Signs Date Time Temp Pulse Resp B/P (MAP) Pulse Ox O2 Delivery O2 Flow Rate FiO2 08/06/17 06:42 36.5 65 18 134/86 (102) 98 Room Air 08/05/17 23:31 36.6 63 18 157/84 (108) 100 Room Air 08/05/17 23:30 Room Air 08/05/17 16:38 98 Room Air 08/05/17 15:37 36.7 75 16 153/90 (111) 98 Room Air Physical Exam General Appearance: WD/WN, + mild distress Respiratory/Chest: chest non-tender, lungs clear, normal breath sounds, no respiratory distress Cardiovascular: regular rate, rhythm, no murmur Extremities: + pedal edema, + swelling, + pertinent finding (chronic venous stasis changes) Neurologic/Psychiatric: alert, normal mood/affect Assessment and Plan 46yo f with recurrent cellulitis from stasis dermatitis recurrent RLE cellulitis - improved. daptomycin. being followed by Dr. Murphy. venous insufficiency/chronic lymphedema (mild) probable stasis dermatitis, Wound care consult placed for management of blisters. DVT proph - lovenox. morbid obesity - BMI 52. this directly impacts the chronic venous stasis changes of her lower legs predisposing her to infection anemia - likely combination of Fe def and B12 def. Continued [facility] stay due to: multiple IV medications needed Discharge planning: home
[2017-08-06 15:31] VITALS: BP 120/83; PULSE 70; TEMP 36.6; O2SAT 96
[2017-08-06] MEDS: ENOXAPARIN 40 MG/0.4 ML SYR SQ SCH (17:55)
[2017-08-06] MEDS: DAPTOmycin IV 600 MG in SYRINGE 0 ML IV SCH (17:55)
[2017-08-06 23:00] VITALS: BP 143/84; PULSE 67; TEMP 36.7; O2SAT 96
[2017-08-07 07:19] VITALS: BP 142/89; PULSE 64; TEMP 36.5; O2SAT 93
[2017-08-07] MEDS: FERROUS SULFATE 325 MG TAB PO SCH ×2 (08:41→20:40)
[2017-08-07] MEDS: CYANOCOBALAMIN 500 MCG TAB (VIT B-12) PO SCH (08:41)
[2017-08-07 14:49] VITALS: BP 134/77; PULSE 72; TEMP 36.8; O2SAT 99
--- NOTE | 2017-08-07 15:17 | Infectious Disease Progress Nt ---
Progress Note Date of Service Aug 07, 2017. Subjective Pt evaluation today including: conversation w/ patient, physical exam, chart review, lab review, review of studies, conversation w/ business travel consultant, review of inpatient medication list Still with severe pain in her right leg. Erythema now regressing. Wound care follow-up noted. No other new complaints. Remains afebrile. Cultures negative. Tolerating daptomycin without apparent difficulty. All Other Systems: Reviewed and Negative Medications Current Inpatient Medications Medications (Trade) Dose Ordered Sig/Brady Route Start Time Stop Time Status Last Admin Dose Admin Enoxaparin Sodium (Lovenox Inj) 40 mg Q24H SQ 08/02/17 18:00 09/01/17 17:59 08/06/17 17:55 40 MG Acetaminophen (Tylenol Tab) 650 mg Q4H PRN PO 08/02/17 16:15 09/01/17 16:14 Al Hydrox/Mg Hydrox/Simethicone (Maalox Max Susp) 15 ml Q4H PRN PO 08/02/17 16:15 09/01/17 16:14 Magnesium Hydroxide (Milk Of Magnesia Susp) 30 ml Q6H PRN PO 08/02/17 16:15 09/01/17 16:14 Polyethylene (Miralax Powder Packet) 17 gm DAILY PRN PO 08/02/17 16:15 09/01/17 16:14 Ondansetron HCl (Zofran Inj) 4 mg Q6H PRN IV 08/02/17 16:15 09/01/17 16:14 Acetaminophen/ Hydrocodone Bitart ([place] 5/325 Tab) 1 tab Q4 PRN PO 08/02/17 16:30 08/16/17 16:29 08/06/17 20:47 1 TAB Daptomycin 600 mg/ Syringe 12 ml @ 6 mls/min Q24H IV 08/02/17 18:00 08/12/17 17:59 08/06/17 17:55 6 MLS/MIN Diphenhydramine HCl (Benadryl Cap) 25 mg Q6H PRN PO 08/04/17 00:15 09/03/17 00:14 08/06/17 20:46 25 MG Ferrous Sulfate (Feosol Tab) 325 mg BID PO 08/04/17 10:30 09/03/17 10:29 08/07/17 08:41 325 MG Cyanocobalamin (Vitamin B-12 Tab) 1,000 mcg QAM PO 08/04/17 10:45 09/03/17 10:44 08/07/17 08:41 1,000 MCG Objective Vital Signs Date Time Temp Pulse Resp B/P (MAP) Pulse Ox O2 Delivery O2 Flow Rate FiO2 08/07/17 14:49 36.8 72 18 134/77 (96) 99 Room Air 08/07/17 09:05 Room Air 08/07/17 07:19 36.5 64 20 142/89 (106) 93 Room Air 08/07/17 00:00 Room Air 08/06/17 23:00 36.7 67 18 143/84 (103) 96 Room Air 08/06/17 20:00 Room Air 08/06/17 18:02 Room Air 08/06/17 15:31 36.6 70 18 120/83 (95) 96 Room Air Physical Exam General Appearance: WD/WN, no apparent distress, + obese Eyes: normal inspection, sclerae normal ENT: normal ENT inspection, hearing grossly normal, pharynx normal Neck: supple, no adenopathy, thyroid normal, trachea midline Respiratory/Chest: chest non-tender, lungs clear, normal breath sounds, no respiratory distress Cardiovascular: regular rate, rhythm, no gallop, no murmur Abdomen: normal bowel sounds, non tender, soft, no organomegaly Extremities: + inflammation (Right leg), + swelling (Right leg) Neurologic/Psychiatric: alert, oriented x 3 Skin: normal color, + pertinent finding (Erythema right leg less intense and regressing) Laboratory Results RUN DATE: 08/04/17 [facility] LAB PAGE 1 RUN TIME: 800 Specimen Inquiry 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 No Doctor, Assigned ORDERED: BLOOD CULTURE Procedure Result Verified Site [facility] Preliminary 08/04/17-800 NO GROWTH TO DATE. Assessment and Plan Recurrent right lower extremity cellulitis with prior episode of cellulitis with group G streptococcal bacteremia. Patient appears to be responding to IV daptomycin, would continue for now. Will likely require IV antibiotics for at least few more days. Will follow.
--- NOTE | 2017-08-07 17:08 | Progress Note ---
Subjective Date of Service: Aug 07, 2017. Subjective pt feels leg gets dramatically worse when dependent, ID suggests a few more days of antibiotics currently 5 days in, if needs outpt and less than two weeks could achieve via US guided peripheral IV, pt had no other somatic complaints Problem List Medical Problems: (1) Encounter for wound re-check Status: Acute (2) Ingrowing toenail with infection Status: Acute (3) Obesity Status: Chronic Review of Systems Constitutional: No fever, No chills Respiratory: No cough, No shortness of breath, No dyspnea on exertion Cardiac: + edema, No chest pain Abdomen: No pain, No nausea, No vomiting, No diarrhea Musculoskeletal: + joint pain, + muscle pain, + swelling Female : No dysuria, No urinary frequency Objective Vital Signs Date Time Temp Pulse Resp B/P (MAP) Pulse Ox O2 Delivery O2 Flow Rate FiO2 08/07/17 14:49 36.8 72 18 134/77 (96) 99 Room Air 08/07/17 09:05 Room Air 08/07/17 07:19 36.5 64 20 142/89 (106) 93 Room Air 08/07/17 00:00 Room Air 08/06/17 23:00 36.7 67 18 143/84 (103) 96 Room Air 08/06/17 20:00 Room Air 08/06/17 18:02 Room Air Physical Exam General Appearance: + mild distress, + obese Eyes: normal inspection, sclerae normal Extremities: + pedal edema, + swelling Neurologic/Psychiatric: alert, oriented x 3 Skin: + pertinent finding (has beefy erythema, induration and tenderness consistent with cellulitis on background of stasis dermatitis) Assessment and Plan 46yo f with recurrent cellulitis from stasis dermatitis recurrent RLE cellulitis - improved. daptomycin. being followed by Dr. Murphy, he in not decided on duration given the slow progress may need longer duration, has had wound care tend to blisters and they are unroofed venous insufficiency/chronic lymphedema (mild) probable stasis dermatitis, Wound care consult placed for management of blisters and will continue to see post discharge. DVT proph - lovenox. morbid obesity - BMI 52. this directly impacts the chronic venous stasis changes of her lower legs predisposing her to infection, we discussed the impact of obesity on her lower extremity swelling anemia -stable likely combination of Fe def and B12 def. Continued [facility] stay due to: multiple IV medications needed Discharge planning: home
[2017-08-07] MEDS: DAPTOmycin IV 600 MG in SYRINGE 0 ML IV SCH (18:14)
[2017-08-07] MEDS: ENOXAPARIN 40 MG/0.4 ML SYR SQ SCH (18:15)
[2017-08-07] MEDS: HYDROCODONE/ACETAMOPHEN 5/325MG TAB PO PRN (20:39)
[2017-08-07 23:36] VITALS: BP 118/83; PULSE 64; TEMP 36.8; O2SAT 96
[2017-08-08 07:09] VITALS: BP 154/71; PULSE 68; TEMP 37.2; O2SAT 98
[2017-08-08] MEDS: CYANOCOBALAMIN 500 MCG TAB (VIT B-12) PO SCH (08:00)
[2017-08-08] MEDS: FERROUS SULFATE 325 MG TAB PO SCH ×2 (08:00→20:46)
[2017-08-08 08:32] LABS: HEMATOCRIT 34.1 % (37-47); MEAN CELL VOLUME 85.3 fL (80-100); MEAN CORPUSCULAR HEMOGLOBIN 27.5 pg (25-34); MEAN CORPUSCULAR HGB CONC 32.3 g/dl (32-36); MEAN PLATELET VOLUME 8.6 fL (7.4-10.4); PLATELET COUNT 384 K/uL (130-400); RED CELL DISTRIBUTION WIDTH CV 15.8 % (11.5-14.5); WHITE BLOOD COUNT 5.48 K/uL (4.8-10.8)
[2017-08-08 08:57] LABS: CALCIUM 9.2 mg/dl (8.5-10.1); CREATININE 0.56 mg/dl (0.60-1.20); POTASSIUM 4.2 mmol/L (3.5-5.1)
[2017-08-08 14:52] VITALS: BP 162/87; PULSE 76; TEMP 36.6; O2SAT 100
[2017-08-08] MEDS ORDERED: DAPT500I IV (15:13)
[2017-08-08] MEDS: DAPTOmycin IV 600 MG in SYRINGE 0 ML IV SCH (16:02)
[2017-08-08] MEDS: HYDROCODONE/ACETAMOPHEN 5/325MG TAB PO PRN (16:04)
--- NOTE | 2017-08-08 17:31 | Progress Note ---
Subjective Date of Service: Aug 08, 2017. Subjective this pt is slowly improving, will now arrange to have outpt iv antibiotics has no diarrhea or constipation pain control is good. Problem List Medical Problems: (1) Encounter for wound re-check Status: Acute (2) Ingrowing toenail with infection Status: Acute (3) Obesity Status: Chronic Review of Systems Constitutional: + weakness, + fatigue, No fever, No chills Respiratory: No cough, No wheezing, No shortness of breath Cardiac: + edema, No chest pain, No orthopnea Abdomen: No pain, No nausea, No vomiting, No diarrhea Psychiatric: No depression symptoms, No anxiety Skin: + rash, + new/changing skin lesions Objective Vital Signs Date Time Temp Pulse Resp B/P (MAP) Pulse Ox O2 Delivery O2 Flow Rate FiO2 08/08/17 16:00 Room Air 08/08/17 14:52 36.6 76 18 162/87 (112) 100 Room Air 08/08/17 08:00 Room Air 08/08/17 07:09 37.2 68 20 154/71 (98) 98 Room Air 08/08/17 00:00 Room Air 08/07/17 23:36 36.8 64 18 118/83 (95) 96 Room Air 08/07/17 20:00 Room Air 08/07/17 18:34 Room Air Physical Exam General Appearance: WD/WN, + mild distress Respiratory/Chest: chest non-tender, lungs clear, normal breath sounds Cardiovascular: regular rate, rhythm, no murmur Abdomen: normal bowel sounds, non tender, soft Extremities: + pedal edema, + slow capillary refill, + swelling Neurologic/Psychiatric: alert, oriented x 3 Skin: + rash Laboratory Results Last 24 Hours Test 08/08/17 08:20 White Blood Count 5.48 K/uL Red Blood Count 4.00 M/uL Hemoglobin 11.0 g/dL Hematocrit 34.1 % Mean Corpuscular Volume 85.3 fL Mean Corpuscular Hemoglobin 27.5 pg Mean Corpuscular Hemoglobin Concent 32.3 g/dl RDW Standard Deviation 49.0 fL RDW Coefficient of Variation 15.8 % Platelet Count 384 K/uL Mean Platelet Volume 8.6 fL Sodium Level 137 mmol/L Potassium Level 4.2 mmol/L Chloride Level 101 mmol/L Carbon Dioxide Level 28 mmol/L Anion Gap 8.0 mmol/L Blood Urea Nitrogen 9 mg/dl Creatinine 0.56 mg/dl Est Creatinine Clear Calc Drug Dose 184.7 ml/min Estimated GFR () 131.4 Estimated GFR (Non- 113.4 BUN/Creatinine Ratio 16.7 Random Glucose 116 mg/dl Calcium Level 9.2 mg/dl Assessment and Plan 46yo f with recurrent cellulitis from stasis dermatitis recurrent RLE cellulitis - improved. daptomycin will arrange for additional week and will be followed by Dr. Murphy in wound clinic, local wound care due to bullae venous insufficiency/chronic lymphedema (mild) probable stasis dermatitis, Wound care consult placed for management of blisters and will continue to see post discharge. DVT proph - lovenox. morbid obesity - BMI 52. this directly impacts the chronic venous stasis changes of her lower legs predisposing her to infection, we discussed the impact of obesity on her lower extremity swelling she does not want dietary consult at this time anemia -stable likely combination of Fe def and B12 def, be sure to prescribe on discharge Continued [facility] stay due to: multiple IV medications needed Discharge planning: home
[2017-08-08] MEDS: ENOXAPARIN 40 MG/0.4 ML SYR SQ SCH (17:47)
[2017-08-08 23:45] VITALS: BP 141/83; PULSE 62; TEMP 36.9; O2SAT 98
[2017-08-09] MEDS: FERROUS SULFATE 325 MG TAB PO SCH (07:03)
[2017-08-09] MEDS: CYANOCOBALAMIN 500 MCG TAB (VIT B-12) PO SCH (07:03)
[2017-08-09] MEDS: HYDROCODONE/ACETAMOPHEN 5/325MG TAB PO PRN (07:03)
[2017-08-09 07:35] VITALS: BP 138/82; PULSE 67; TEMP 36.8; O2SAT 93
[2017-08-09] MEDS ORDERED: HYDR-5688 PO (08:54)
--- NOTE | 2017-08-09 08:55 | Discharge Instructions ---
Discharge Instructions Date of Service Aug 09, 2017. Admission Reason for Admission: Cellulitis In Right Lower Leg Discharge Discharge Diagnosis / Problem: LE cellulitis-recurrent Discharge Goals Goal(s): Diagnostic testing, Therapeutic intervention Activity Recommendations Activity Limitations: as noted below Lifting Limitations: gradually increase as tolerated Please stay off work until released by INfectious disease or wound center Keep leg up as much as possible . Current Hospital Diet Patient's current hospital diet: Regular Diet Discharge Diet Recommended Diet: Low Sodium Diet (2gm Na) Pending Studies Studies pending at discharge: no Medical Emergencies . Who to Call and When: Medical Emergencies: If at any time you feel your situation is an emergency, please call 911 immediately. . Non-Emergent Contact Non-Emergency issues call your: Primary Care Provider Call Non-Emergent contact if: temperature is above 101, your pain is unusual for you . . "Provider Documentation" section prepared by Imtiaz Lucas. . VTE Core Measure Inpt VTE Proph given/why not?: Enoxaparin (Lovenox)SQ
[2017-08-09] MEDS ORDERED: FERR325T18 PO (11:09)
[2017-08-09] MEDS ORDERED: VTMB12 PO (11:09)
[2017-08-09 11:26] VITALS: BP 138/82; PULSE 67; TEMP 36.8; O2SAT 93
[2017-08-09] MEDS: DAPTOmycin IV 600 MG in SYRINGE 0 ML IV SCH (11:53)
--- NOTE | 2017-08-09 19:25 | Discharge Summary ---
Discharge Summary Date of Service Aug 09, 2017. Discharge Summary Admission Date: Aug 02, 2017 at 15:08 Discharge Date: Aug 09, 2017 Discharge Disposition: Home with services Principal Diagnosis: recurrent lower extremity cellulitis from chronic venous stasis Problems/Secondary Diagnoses: (1) Obesity Status: Chronic Immunizations: Have You Had Influenza Vaccine: Unknown History of Tetanus Vaccine?: Unknown History of Pneumococcal: No History of Hepatitis B Vaccine: Unknown Consultations: Infectous disease Medication Reconciliation New Medications: Daptomycin (Daptomycin) 500 Mg Inj 600 MG IV Q24H, #7 DOSE Cyanocobalamin (Vitamin B-12) 500 Mcg Tab 1000 MCG PO QAM, #60 TAB 4 Refills Ferrous Gluconate (Ferrous Gluconate) 324 Mg Tab 324 MG PO BID, #60 TAB 6 Refills Continued Medications: Hydrocodone/Acetaminophen 5MG/325MG ([place] 5MG/325MG) Tab 1 TABLET PO Q4 PRN for Pain, #20 TAB (This prescription has been renewed) Discharge Exam Review of Systems: Constitutional: No fever, No chills Respiratory: No cough, No sputum, No shortness of breath Cardiovascular: No chest pain, No orthopnea, No edema Abdomen: No pain, No nausea, No vomiting, No diarrhea Physical Exam: General Appearance: WD/WN, + mild distress Eyes: normal inspection, sclerae normal Neck: supple, no JVD Respiratory/Chest: chest non-tender, lungs clear, normal breath sounds Cardiovascular: regular rate, rhythm, no murmur Abdomen / GI: normal bowel sounds, non tender, soft Hospital Course 46yo f with recurrent cellulitis from stasis dermatitis recurrent RLE cellulitis - improved. daptomycin will arrange for additional week and will be followed by Dr. Murphy in wound clinic, local wound care due to bullae venous insufficiency/chronic lymphedema (mild) probable stasis dermatitis, Wound care consult will continue to see post discharge. morbid obesity - BMI 52. this directly impacts the chronic venous stasis changes of her lower legs predisposing her to infection, we discussed the impact of obesity on her lower extremity swelling she does not want dietary consult at this time, counselled on dietary restriction anemia -stable likely combination of Fe def and B12 def, prescribed on discharge Total Time Spent: Greater than 30 minutes This includes examination of the patient, discharge planning, medication reconciliation, and communication with other providers. Discharge Instructions Please refer to the electronic Patient Visit Report (Discharge Instructions) for additional information.
== END 2017-08-09 13:55 | disposition home health service (06) | DRG 603 ==
LOC: C.MS2W 15:08
PROVIDERS: ADMIT Internal Medicine; ATTEND Internal Medicine
DX: L03.115 Cellulitis of right lower limb (principal); Z68.43 Body mass index [BMI] 50.0-59.9, adult; I87.2 Venous insufficiency (chronic) (peripheral); E66.01 Morbid (severe) obesity due to excess calories; Z88.0 Allergy status to penicillin; Z83.3 Family history of diabetes mellitus; Z86.19 Personal history of other infectious and parasitic diseases; D64.9 Anemia, unspecified; I10 Essential (primary) hypertension

== ENCOUNTER → 2017-08-15 | Outpatient (CLI) | payer OTHER ==
[~2017-08-15] MED LIST changes: -CEFA500C2 PO; +CLIN300C2 PO; +DAPT500I IV; +FERR325T18 PO; +VTMB12 PO
[2017-08-15 15:15] LABS: BASO % 0.2 %; BASO ABS # 0.02 K/uL (0-0.2); EOS % 0.7 %; EOS ABS # 0.06 K/uL (0-0.5); HEMATOCRIT 37.1 % (37-47); HEMOGLOBIN 12.3 g/dL (12.0-16.0); IG# 0.01 K/uL (0.00-0.02); LYMPH % 43.5 %; LYMPH ABS # 3.71 K/uL (1.2-3.4); MEAN CELL VOLUME 83.7 fL (80-100); MEAN CORPUSCULAR HEMOGLOBIN 27.8 pg (25-34); MEAN CORPUSCULAR HGB CONC 33.2 g/dl (32-36); MONO % 4.7 %; NEUT % 50.8 %; NEUT ABS # 4.32 K/uL (1.4-6.5); PLATELET COUNT 415 K/uL (130-400); RED CELL DISTRIBUTION WIDTH CV 15.4 % (11.5-14.5); RED CELL DISTRIBUTION WIDTH SD 47.6 fL (36.4-46.3); WHITE BLOOD COUNT 8.52 K/uL (4.8-10.8)
[2017-08-15 15:42] LABS: ALBUMIN 3.5 gm/dl (3.4-5.0); ALT/SGPT 14 U/L (12-78); BLOOD UREA NITROGEN 14 mg/dl (7-18); CALCIUM 8.9 mg/dl (8.5-10.1); CARBON DIOXIDE 27 mmol/L (21-32); GLUCOSE 102 mg/dl (70-99); SODIUM 137 mmol/L (136-145)
[2017-08-15 15:45] LABS: ALKALINE PHOSPHATASE 76 U/L (45-117); AST/SGOT 6 U/L (15-37); TOTAL PROTEIN 7.7 gm/dl (6.4-8.2)
== END | disposition home or self-care (01) ==
LOC: C.LAB1850 14:42
PROVIDERS: ATTEND Internal Medicine Infectious Disease
DX: L03.115 Cellulitis of right lower limb (principal)

== ENCOUNTER → 2017-08-16 | Day surgery (SDC) | payer OTHER ==
[~2017-08-16] VITALS: Ht 165.1 cm; Wt 139.0 kg
[2017-08-16 09:41] VITALS: BP 162/78; PULSE 79; TEMP 36.6; O2SAT 98; Ht 165.1 cm; Wt 139.0 kg
--- NOTE | 2017-08-17 07:51 | EDITING REQUIRED CODING QUERY ---
TREATMENT RENDERED WITHOUT A DIAGNOSIS To promote full compliance with coding requirements relating to patient care, physician participation is requested in all cases of instructional support assistant uncertainty. Please assist us with the question(s) below: Coding Question: The patient is receiving D/C ULTRASOUND GUIDED PERIPHERAL LINE, as noted in the ORDER HISTORY of the record. Please document the diagnosis that is being addressed by the medication/treatment. Provider Response: right lower leg cellulitis Thank you Rebecca Galeas
== END | disposition home or self-care (01) ==
LOC: C.MTU 09:35
PROVIDERS: ATTEND Internal Medicine Infectious Disease
DX: L03.115 Cellulitis of right lower limb (principal)

== ENCOUNTER → 2017-11-22 | Outpatient (CLI) | payer OTHER ==
[~2017-11-22] MED LIST changes: -DAPT500I IV
[2017-11-22 12:24] LABS: BASO % 0.4 %; BASO ABS # 0.02 K/uL (0-0.2); EOS % 0.8 %; EOS ABS # 0.04 K/uL (0-0.5); HEMATOCRIT 38.5 % (37-47); HEMOGLOBIN 12.4 g/dL (12.0-16.0); IG# 0.01 K/uL (0.00-0.02); LYMPH % 43.4 %; LYMPH ABS # 2.22 K/uL (1.2-3.4); MEAN CORPUSCULAR HEMOGLOBIN 27.4 pg (25-34); MEAN CORPUSCULAR HGB CONC 32.2 g/dl (32-36); MEAN PLATELET VOLUME 10.2 fL (7.4-10.4); MONO % 6.1 %; MONO ABS # 0.31 K/uL (0.11-0.59); NEUT % 49.1 %; NEUT ABS # 2.52 K/uL (1.4-6.5); PLATELET COUNT 307 K/uL (130-400); RED CELL DISTRIBUTION WIDTH SD 46.5 fL (36.4-46.3); WHITE BLOOD COUNT 5.12 K/uL (4.8-10.8)
[2017-11-22 12:26] LABS: HEMOGLOBIN A1C 5.5 % (4.5-5.6)
[2017-11-22 12:35] LABS: ALBUMIN 3.7 gm/dl (3.4-5.0); ALT/SGPT 16 U/L (12-78); AST/SGOT 13 U/L (15-37); BLOOD UREA NITROGEN 19 mg/dl (7-18); CARBON DIOXIDE 28 mmol/L (21-32); GLUCOSE 89 mg/dl (70-99); POTASSIUM 4.3 mmol/L (3.5-5.1); SODIUM 136 mmol/L (136-145)
[2017-11-22 12:46] LABS: ALKALINE PHOSPHATASE 74 U/L (45-117); CHOLESTEROL 187 mg/dl (0-200); LDL CHOLESTEROL CALCULATED 125 mg/dl; TOTAL PROTEIN 7.4 gm/dl (6.4-8.2)
== END | disposition home or self-care (01) ==
LOC: C.LABBFT 08:51
PROVIDERS: ATTEND Internal Medicine
DX: Z00.00 Encounter for general adult medical examination without abnormal findings (principal); E04.0 Nontoxic diffuse goiter; R73.01 Impaired fasting glucose; I10 Essential (primary) hypertension; Z68.43 Body mass index [BMI] 50.0-59.9, adult

== ENCOUNTER → 2018-03-12 | Outpatient (CLI) | payer OTHER ==
[2018-03-12 13:03] LABS: HEMATOCRIT 36.7 % (37-47); HEMOGLOBIN 11.7 g/dL (12.0-16.0); MEAN CELL VOLUME 87.8 fL (80-100); MEAN CORPUSCULAR HGB CONC 31.9 g/dl (32-36); MEAN PLATELET VOLUME 10.5 fL (7.4-10.4); PLATELET COUNT 266 K/uL (130-400); RED CELL DISTRIBUTION WIDTH CV 14.6 % (11.5-14.5); RED CELL DISTRIBUTION WIDTH SD 47.4 fL (36.4-46.3); WHITE BLOOD COUNT 5.01 K/uL (4.8-10.8)
[2018-03-12 13:48] LABS: ALBUMIN 3.4 gm/dl (3.4-5.0); ALKALINE PHOSPHATASE 71 U/L (45-117); ALT/SGPT 18 U/L (12-78); AST/SGOT 11 U/L (15-37); BLOOD UREA NITROGEN 13 mg/dl (7-18); CALCIUM 8.9 mg/dl (8.5-10.1); CARBON DIOXIDE 27 mmol/L (21-32); CREATININE 0.63 mg/dl (0.60-1.20); GLUCOSE 88 mg/dl (70-99); POTASSIUM 3.8 mmol/L (3.5-5.1); SODIUM 139 mmol/L (136-145); TOTAL PROTEIN 7.1 gm/dl (6.4-8.2)
== END | disposition home or self-care (01) ==
LOC: C.LABBFT 10:37
PROVIDERS: ATTEND Internal Medicine Infectious Disease
DX: L03.90 Cellulitis, unspecified (principal)

== ENCOUNTER 2022-11-29 03:36 | Observation (INO) ==
[2022-11-29] MEDS ORDERED: ONDANSETRON INJ 2 MG/ML 2 ML VIAL IV STA (03:41)
[2022-11-29] MEDS ORDERED: MoRPHine SULFATE 10 MG/ML CARP/VIAL IV STA ×2 (03:41→05:06)
--- NOTE | 2022-11-29 03:45 | Emergency Department Note ---
Impression & Plan Intractable abdominal pain, Acute pain of right thigh, Acute bilateral low back pain ED Provider Note Name: RICARDO DRAPER Age: 52 Sex: F Arrives Via: Ambulance Informant: Patient ED Provider: Isidoro Pacheco MD Chief Complaint: Thigh pain Impression: As Per Impressions above Medical Decision Makin-year-old female arrives for evaluation of acute right thigh pain. Patient is severely uncomfortable borderline writhing on the bed. She has no acute findings though on examination. There is no rash there is no discoloration she has excellent pulses and she has full range of motion without deformity. X-rays of the thigh and pelvis reveals osteoarthritis but no evidence of fracture. Laboratory work-up is completely benign. An ultrasound of the right leg shows no DVT or other concerning findings. Patient while here develops worsening ab dominal and back pain. She is given despite 2 rounds of morphine still in significant distress and thus was given 1 mg IV Dilaudid with some moderate improvement. CT of the abdomen pelvis was obtained. On return she is still quite uncomfortable. We got her into a chair as she does not usually lay on the bed and is barely able to ambulate from the bed to the chair without severe pain. I do not have a clear source for her pain but she is at risk and given she lives alone riding multiple rounds of narcotics I do not think it would be safe to send her home at this point. Prior Medical Record and Triage/Nursing Notes reviewed by Me External chart reviewed by me Differentials:Fracture, dislocation, arterial occlusion, DVT, shingles, cellulitis, spinal pathology, intra-abdominal pathology amongst many other pathologies considered Vital Signs: reviewed and remarkable for hypertension Interventions: Morphine 6 mg IV x2, Dilaudid 1 mg IV Labs:Reviewed and remarkable for no significant abnormalities Imaging:X-ray of the right femur 3 view as per my interpretation no fracture no dislocation. There is moderate osteoarthritis. X-ray of the pelvis 1 view as per my interpretation no fracture or dislocation. Ultrasound of the right leg venous Doppler as per radiology no DVT. CT of the abdomen pelvis with IV contrast as per my interpretation. No free fluid, bowel obstruction, free air. [] Consults:[place] Hospitalist Plan: Disposition:Hospitalization. Condition: Good History of Present Illness:52-year-old female arrives for evaluation of right hip and knee pain. Patient notes over the last 6 to 12 hours increasing pain. Primarily in the anterior right thigh. Worse with any movement and touching the area. No associated fevers, chills, rash, discoloration, abdominal pain, back pain or other concerning signs or symptoms. Patient has a history of cellulitis in both legs but denies this being similar to that. She has no history of DVT or clots. Denies any falls, trauma, injuries. No inciting event. No history of similar pains. Past History:Hypertension, venous stasis, recurrent cellulitis, obesity Home Medications:See Below Allergies:PNC Vitals:Blood Pressure: 151/95, Pulse 72, RR 23, T 36.9C, O2 97% on RA Physical Exam: GENERAL: Patient is well appearing and in moderate distress. RESPIRATORY: No dyspnea. Clear to auscultation and equal bilaterally. No wheeze, no rhonchi. CARDIOVASCULAR: Regular rate and rhythm.No murmurs, rubs, gallops appreciated. GASTROINTESTINAL: Abdomen soft, non-tender, no peritonitis. Back: No mass, rash, step-off appreciated. EXTREMITIES: Vague diffuse tenderness to palpation entire anterior right thigh primarily from inguinal canal to mid thigh. Bilateral lower leg edema venous stasis and good distal pulses without discoloration. NEUROLOGIC: Alert and oriented, no focal neurologic deficit appreciated SKIN: No rash, no jaundice, no diaphoresis. Candidal rash throughout stomach and groin folds PSYCH: Appropriate GCS: 15 ED Course: Times/Reassessments: Patient with worsening pain while in department despite multiple rounds of IV narcotics. Patient is unable to even ambulate due to the amount of pain she is having. Patient does not feel safe or comfortable attempting to go home and hospitalist consulted for further management Isidoro Pacheco MD Past Med/Surg History Medical History (Updated 11/29/22 @ 09:47 by Isidoro Kent MD) Hypertension Impaired fasting glucose Morbid obesity Recurrent cellulitis of lower extremity Venous stasis of both lower extremities Family History (Updated 06/03/22 @ 12:33 by PARVIZ Marte) Father Cerebral arterial aneurysm Emphysema, unspecified Mother Skin cancer Pulmonary embolism Other No pertinent family history in first degree relatives Denies family history of Ovarian cancer Breast cancer Colorectal cancer Social History (Updated 06/03/22 @ 12:32 by PARVIZ Marte) Smoking Status: Never smoker Second Hand Exposure: No; Do You Dip or Chew Tobacco: No; Tobacco Cessation Education Requested by Patient: No Hx Alcohol Use: No Hx Substance Use: No Preferred Language: Welsh Communication Ability: Effective Visual Impairment: No Limitations Hearing Ability: Normal Transcription Manager Required: No Beliefs That Will Affect Care: None marital status: Single Current Living Situation: Alone current occupational status: employed Other Information That Helps Us Care for You: No Feels Safe at Home: Yes Safety Concerns: Feels Safe At This Time caffeine: Yes Dental Care, Regularly: No Physical Activity Frequency: Does not Exercise Seatbelt Use: always Assistive Devices: Cane Allergies Allergies Allergy/AdvReac Type Severity Reaction Status Date / Time Penicillins Allergy Mild "ACTED Verified 11/29/22 11:32 FUNNY" A CHILD Home Meds Home Medications Medication Instructions Recorded Confirmed cyanocobalamin (vitamin B-12) 1,000 mcg sublingual QAM 01/11/19 11/29/22 1,000 mcg sublingual tablet clotrimazole-betamethasone 1 1 appln topical BID PRN flare ups 02/05/20 11/29/22 %-0.05 % topical cream acetaminophen 500 mg tablet 1,000 mg PO Q6H PRN Pain 11/29/22 11/29/22 (Tylenol Extra Strength) Previous Rx's Medication Instructions Recorded hydrochlorothiazide 25 mg tablet 25 mg PO DAILY #90 tabs 01/17/22 clindamycin HCl 300 mg capsule 300 mg PO BID #60 caps 06/03/22 Results & Data (ED) Vital Signs Vital Signs - 24 hr 11/29/22 03:59 11/29/22 04:22 11/29/22 04:16 Temperature 36.9 C Temperature Source Oral Pulse Rate 78 67 67 Pulse Rate [Left Finger] Pulse Rate from SpO2 Sensor Pulse Rhythm Regular Pulse Rhythm [Left Finger] Pulse Strength [Left Finger] Respiratory Rate 18 13 Respiratory Effort / Characteristics Non-Labored Spontaneous Respiratory Depth Normal Respiratory Pattern Regular Blood Pressure 177/89 H Blood Pressure [Left Arm] Blood Pressure Mean 118 Blood Pressure Mean [Left Arm] Blood Pressure Position [Left Arm] Pulse Oximetry 100 Oxygen Delivery Method Room Air Sepsis Recent Fever Within 48 Hours No Sepsis New/Unexplained Change in Mental Status No Sepsis Action Taken by Nursing No Action Required 11/29/22 04:30 11/29/22 04:31 11/29/22 04:31 Temperature Temperature Source Pulse Rate 65 67 Pulse Rate [Left Finger] Pulse Rate from SpO2 Sensor 67 67 Pulse Rhythm Pulse Rhythm [Left Finger] Pulse Strength [Left Finger] Respiratory Rate 15 25 H Respiratory Effort / Characteristics Respiratory Depth Respiratory Pattern Blood Pressure 153/119 H Blood Pressure [Left Arm] Blood Pressure Mean 130 Blood Pressure Mean [Left Arm] Blood Pressure Position [Left Arm] Pulse Oximetry 98 98 Oxygen Delivery Method Sepsis Recent Fever Within 48 Hours Sepsis New/Unexplained Change in Mental Status Sepsis Action Taken by Nursing 11/29/22 05:00 11/29/22 05:01 11/29/22 05:01 Temperature Temperature Source Pulse Rate 70 72 Pulse Rate [Left Finger] Pulse Rate from SpO2 Sensor 67 72 Pulse Rhythm Pulse Rhythm [Left Finger] Pulse Strength [Left Finger] Respiratory Rate 18 23 Respiratory Effort / Characteristics Respiratory Depth Respiratory Pattern Blood Pressure 151/95 H Blood Pressure [Left Arm] Blood Pressure Mean 113 Blood Pressure Mean [Left Arm] Blood Pressure Position [Left Arm] Pulse Oximetry 94 97 Oxygen Delivery Method Sepsis Recent Fever Within 48 Hours Sepsis New/Unexplained Change in Mental Status Sepsis Action Taken by Nursing 11/29/22 07:42 Temperature Temperature Source Pulse Rate Pulse Rate [Left Finger] 74 Pulse Rate from SpO2 Sensor Pulse Rhythm Pulse Rhythm [Left Finger] Regular Pulse Strength [Left Finger] Normal Respiratory Rate 22 Respiratory Effort / Characteristics Non-Labored Spontaneous Respiratory Depth Normal Respiratory Pattern Regular Blood Pressure Blood Pressure [Left Arm] 139/77 Blood Pressure Mean Blood Pressure Mean [Left Arm] 97 Blood Pressure Position [Left Arm] Sitting Pulse Oximetry 95 Oxygen Delivery Method Room Air Sepsis Recent Fever Within 48 Hours Sepsis New/Unexplained Change in Mental Status Sepsis Action Taken by Nursing Laboratory Data 11/29/22 03:47 11/29/22 03:47 Lab Results 11/29/22 11/29/22 11/29/22 Range/Units 03:47 03:47 04:02 WBC 10.88 H (4.8-10.8) K/ul RBC 4.08 L (4.20-5.40) M/uL Hgb 11.3 L (12.0-16.0) g/dl Hct 34.0 L (37.0-47.0) % MCV 83.3 (80.0-100.0) fL MCH 27.7 (25.0-34.0) pg MCHC 33.2 (32.0-36.0) g/dL RDW Std Deviation 46.5 H (36.4-46.3) fL RDW Coeff of Suly 15.4 H (11.5-14.5) % Plt Count 307 (130-400) K/uL MPV 10.0 (9.4-12.4) fL Immature Gran % (Auto) 0.5 % Neut % (Auto) 89.5 % Lymph % (Auto) 5.4 % Hanson % (Auto) 4.4 % Eos % (Auto) 0.0 % Baso % (Auto) 0.2 % Neut # (Auto) 9.74 H (1.40-6.50) K/uL Lymph # (Auto) 0.59 L (1.2-3.4) K/uL Hanson # (Auto) 0.48 (0.11-0.59) K/uL Eos # (Auto) 0.00 (0-0.50) K/uL Baso # (Auto) 0.02 (0-0.2) K/uL Immature Gran # (Auto) 0.05 (0.01-0.20) K/uL Sodium 138 (136-145) mmol/L Potassium 3.0 L (3.5-5.1) mmol/L Chloride 102 (98-107) mmol/L Carbon Dioxide 27 (21-32) mmol/L Anion Gap 9 (3-11) BUN 19 (6-23) mg/dl Creatinine 0.69 (0.6-1.2) mg/dl Est Cr Clr Drug Dosing 142.7 ml/min Est GFR ( Amer) 117.6 ml/min Est GFR (Non-Af Amer) 101.5 ml/min BUN/Creatinine Ratio 27.5 H (10-20) Glucose 135 H (70-99(Fasting)) mg/dl Calcium 9.0 (8.6-10.3) mg/dl Magnesium 1.5 L (1.7-2.4) mg/dl C-Reactive Protein 1.71 H (0-0.5) mg/dl Procalcitonin < 0.05 (0-0.5) ng/ml SARS-CoV-2, RNA, NAAT (NEGATIVE) 11/29/22 Range/Units 07:56 WBC (4.8-10.8) K/ul RBC (4.20-5.40) M/uL Hgb (12.0-16.0) g/dl Hct (37.0-47.0) % MCV (80.0-100.0) fL MCH (25.0-34.0) pg MCHC (32.0-36.0) g/dL RDW Std Deviation (36.4-46.3) fL RDW Coeff of Suly (11.5-14.5) % Plt Count (130-400) K/uL MPV (9.4-12.4) fL Immature Gran % (Auto) % Neut % (Auto) % Lymph % (Auto) % Hanson % (Auto) % Eos % (Auto) % Baso % (Auto) % Neut # (Auto) (1.40-6.50) K/uL Lymph # (Auto) (1.2-3.4) K/uL Hanson # (Auto) (0.11-0.59) K/uL Eos # (Auto) (0-0.50) K/uL Baso # (Auto) (0-0.2) K/uL Immature Gran # (Auto) (0.01-0.20) K/uL Sodium (136-145) mmol/L Potassium (3.5-5.1) mmol/L Chloride (98-107) mmol/L Carbon Dioxide (21-32) mmol/L Anion Gap (3-11) BUN (6-23) mg/dl Creatinine (0.6-1.2) mg/dl Est Cr Clr Drug Dosing ml/min Est GFR ( Amer) ml/min Est GFR (Non-Af Amer) ml/min BUN/Creatinine Ratio (10-20) Glucose (70-99(Fasting)) mg/dl Calcium (8.6-10.3) mg/dl Magnesium (1.7-2.4) mg/dl C-Reactive Protein (0-0.5) mg/dl Procalcitonin (0-0.5) ng/ml SARS-CoV-2, RNA, NAAT NEGATIVE (NEGATIVE) Administered Medications Cyclobenzaprine HCl (Cyclobenzaprine Hcl 5 Mg Tab) 5 mg PO TID PRN PRN Reason: Right Thigh Pain Stop: 12/29/22 12:10 Last Admin: 11/29/22 15:58 Dose: 5 mg Documented By: SYDNEY Enoxaparin Sodium (Enoxaparin Inj 40 Mg/0.4 Ml Syr) 40 mg SQ Q12H GOYO Stop: 12/29/22 12:29 Last Admin: 11/29/22 15:57 Dose: 40 mg Documented By: SYDNEY Oxycodone HCl (Oxycodone Hcl Ir 5 Mg Tab (Immediate Release)) 5 mg PO Q4H PRN PRN Reason: Pain (6,7,8,9,10) Stop: 12/13/22 12:10 Last Admin: 11/29/22 12:25 Dose: 5 mg Documented By: SYDNEY Discontinued Medications Cyclobenzaprine HCl (Cyclobenzaprine Hcl 5 Mg Tab) 5 mg PO NOW STA Stop: 11/29/22 09:12 Last Admin: 11/29/22 09:19 Dose: 5 mg Documented By: RENALDO Hydromorphone HCl (Hydromorphone Inj 1 Mg/Ml Syringe) 1 mg IV NOW STA Stop: 11/29/22 06:54 Last Admin: 11/29/22 06:58 Dose: 1 mg Documented By: RENALDO Magnesium Sulfate/Dextrose (Magnesium Sulfate / D5w) 1 gm in 100 mls @ 50 mls/hr IV Q2H GOYO Stop: 11/29/22 12:59 Last Infusion: 11/29/22 13:06 Dose: 0 mls/hr Documented By: Infusion: 11/29/22 11:54 Dose: 50 mls/hr Documented By: Admin: 11/29/22 10:11 Dose: 50 mls/hr Documented By: Infusion: 11/29/22 10:11 Dose: 50 mls/hr Documented By: Admin: 11/29/22 09:17 Dose: 50 mls/hr Documented By: RENALDO Ioversol (Optiray 320 100ml) 86 ml IV ONCE ONE Stop: 11/29/22 07:36 Last Admin: 11/29/22 07:34 Dose: 86 ml Documented By: NOAH Morphine Sulfate (Morphine Sulfate 10 Mg/Ml Carp/Vial) 6 mg IV NOW STA Stop: 11/29/22 03:42 Last Admin: 11/29/22 04:09 Dose: 6 mg Documented By: DARRIUS Morphine Sulfate (Morphine Sulfate 10 Mg/Ml Carp/Vial) 6 mg IV NOW STA Stop: 11/29/22 05:07 Last Admin: 11/29/22 05:14 Dose: 6 mg Documented By: DARRIUS Ondansetron HCl (Ondansetron Inj 2 Mg/Ml 2 Ml Vial) 4 mg IV NOW STA Stop: 11/29/22 03:42 Last Admin: 11/29/22 04:09 Dose: 4 mg Documented By: DARRIUS Polyethylene Glycol (Polyethylene (Miralax) 17 Gm Pack) 17 gm PO NOW STA Stop: 11/29/22 09:39 Last Admin: 11/29/22 12:25 Dose: 17 gm Documented By: SYDNEY Potassium Chloride (Potassium Chloride Crtab 20 Meq Tabcr) 60 meq PO NOW STA Stop: 11/29/22 08:10 Last Admin: 11/29/22 08:16 Dose: 60 meq Documented By: RENALDO Imaging Data Radiologist's Impression: Femur X-Ray 11/29/22 03:41 XR pelvis 1-2V routine, XR femur RT 2V routine HISTORY: 52 years-old Female right hip pain acute right-sided pain COMPARISON: None TECHNIQUE: AP view of the pelvis with 2 views of the right femur FINDINGS: PELVIS: Mild osteoarthritis of the hips. No acute fracture, dislocation or avascular necrosis. Unremarkable soft tissues. FEMUR: No acute fracture or dislocation. Tricompartmental osteoarthritis of the knee, suboptimally violated secondary to positioning however appears to be moderate. Trace knee joint effusion. IMPRESSION: No acute fracture or dislocation. ACT 112: Negative or not required by law. The above report was generated using voice recognition software. It may contain grammatical, syntax or spelling errors. Electronically signed by: Joni Grace M.D. 11/29/2022 7:12 AM Pelvis X-Ray 11/29/22 03:41 XR pelvis 1-2V routine, XR femur RT 2V routine HISTORY: 52 years-old Female right hip pain acute right-sided pain COMPARISON: None TECHNIQUE: AP view of the pelvis with 2 views of the right femur FINDINGS: PELVIS: Mild osteoarthritis of the hips. No acute fracture, dislocation or avascular necrosis. Unremarkable soft tissues. FEMUR: No acute fracture or dislocation. Tricompartmental osteoarthritis of the knee, suboptimally violated secondary to positioning however appears to be moderate. Trace knee joint effusion. IMPRESSION: No acute fracture or dislocation. ACT 112: Negative or not required by law. The above report was generated using voice recognition software. It may contain grammatical, syntax or spelling errors. Electronically signed by: Joni Grace M.D. 11/29/2022 7:12 AM Venous Doppler Study 11/29/22 05:06 US venous doppler LE RT HISTORY: 52 years-old Female right thigh pain acute pain and swelling of the right lower extremity COMPARISON: None TECHNIQUE: Multiple real-time sonographic images of the right lower extremity deep venous structures were obtained assessing grayscale appearance, color and spectral flow. FINDINGS: Normal flow, compressibility, phasicity and augmentation. Limited exam secondary to patient body habitus. IMPRESSION: No sonographic evidence of deep venous thrombosis. ACT 112: Negative or not required by law. The above report was generated using voice recognition software. It may contain grammatical, syntax or spelling errors. Electronically signed by: Joni Grace M.D. 11/29/2022 7:17 AM Abdomen/Pelvis CT 11/29/22 06:[address] WITH IV CONTRAST CT DOSE: 1218.46 mGycm HISTORY: Acute generalized abdominal pain diffuse abdominal and back pain TECHNIQUE: Multiaxial CT images of the abdomen and pelvis were performed following the IV administration of 86 cc of Optiray, A dose lowering technique was utilized adhering to the principles of ALARA. COMPARISON STUDY: None. FINDINGS: Limited exam secondary to patient body habitus with morbid obesity. Clear lung bases. No pneumatosis or pneumoperitoneum. Unremarkable spleen, mckee creas and right adrenal gland. Indeterminate soft tissue attenuating 1.7 cm left adrenal gland nodule. Mild gallbladder distention. Unremarkable liver. 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 2.0 cm left renal sinus cyst. No ureteral calculi or hydronephrosis. Areas of increased attenuation noted within the renal collecting system suggestive of excreted contrast. Tiny nonobstructing calculi could appear similarly. Unremarkable urinary bladder. Mild pelvic floor relaxation. Uterus and adnexa are unremarkable. Aorta and IVC are within normal limits. No lymphadenopathy identified. Mild distal esophageal wall thickening with small hiatal hernia. No bowel obstruction or bowel wall thickening. Mild to moderate colonic fecal retention with several stool filled loops of small bowel. Noninflamed appendix. No ascites or mesenteric inflammation. Unremarkable soft tissues. Moderate osteoporosis of the hips with apparent partial bony fusion bilaterally. No acute fracture. IMPRESSION: 1. No acute intra-abdominal or intrapelvic abnormality identified. 2. No bowel obstruction or bowel wall thickening. 3. Mild to moderate colonic fecal retention. 4. Incidental findings as above. ACT 112: Negative or not required by law. The above report was generated using voice recognition software. It may contain grammatical, syntax or spelling errors. Electronically signed by: Joni Grace M.D. 11/29/2022 7:59 AM Vascular Ultrasound 11/29/22 08:41 ULTRASOUND RIGHT LOWER EXTREMITY NONVASCULAR CLINICAL HISTORY: Right thigh pain. COMPARISON STUDY: No priors. FINDINGS: Real-time manriquez scale sonography of the soft tissues of the right thigh is performed at the indicated site of interest. No sonographic abnormality is seen at this site. There is no mass lesion or fluid collection. IMPRESSION: No sonographic abnormality is seen in the soft tissues of the right thigh at the indicated site of interest. Dictated: 11/29/2022 10:23 AM Transcribed: 11/29/2022 10:25 AM Volodymyr [id number] [email or web address] Electronically signed by: Tee Doty M.D. 11/29/2022 10:46 AM Discharge Plan Visit Data Chief Complaint: Hip Pain Stated Complaint: HIP/KNEE PAIN ED Provider: Isidoro Pacheco Discharge Problem: Intractable abdominal pain, Acute pain of right thigh, Acute bilateral low back pain Patient Disposition: Admitted As Inpatient Discharge Instructions Interventions: ED Discharge Assessment Last Done: 11/29/22 11:25 Acute bilateral low back pain Qualifiers: Sciatica presence: without sciatica Qualified Code(s): M54.50 - Low back pain, unspecified
[2022-11-29 04:25] LABS: Basophils # (auto) 0.02 K/uL (0-0.2); Basophils % (auto) 0.2 %; Hemoglobin 11.3 g/dl (12.0-16.0); Immature Granulocytes # (auto) 0.05 K/uL (0.01-0.20); Immature Granulocytes % (auto) 0.5 %; Lymphocytes # (auto) 0.59 K/uL (1.2-3.4); Lymphocytes % (auto) 5.4 %; Mean Corpuscular Hemoglobin 27.7 pg (25.0-34.0); Mean Corpuscular Hgb Conc 33.2 g/dL (32.0-36.0); Mean Corpuscular Volume 83.3 fL (80.0-100.0); Monocytes # (auto) 0.48 K/uL (0.11-0.59); Monocytes % (auto) 4.4 %; Neutrophils # (auto) 9.74 K/uL (1.40-6.50); Neutrophils % (auto) 89.5 %; Platelet Count 307 K/uL (130-400); RDW Coefficient of Variation 15.4 % (11.5-14.5); RDW Standard Deviation 46.5 fL (36.4-46.3); Red Blood Count 4.08 M/uL (4.20-5.40); White Blood Count 10.88 K/ul (4.8-10.8)
[2022-11-29 04:43] LABS: BUN Creatinine Ratio 27.5 (10-20); Creatinine Clr Calc Pharmacy 142.7 ml/min; Est GFR (African American) 117.6 ml/min; Est GFR (Non-African American) 101.5 ml/min
[2022-11-29] MEDS ORDERED: HYDROmorphone INJ 1 MG/ML SYRINGE IV STA (06:53)
--- NOTE | 2022-11-29 07:14 | XRay Report ---
XR pelvis 1-2V routine, XR femur RT 2V routine HISTORY: 52 years-old Female right hip pain acute right-sided pain COMPARISON: None TECHNIQUE: AP view of the pelvis with 2 views of the right femur FINDINGS: PELVIS: Mild osteoarthritis of the hips. No acute fracture, dislocation or avascular necrosis. Unremarkable s oft tissues. FEMUR: No acute fracture or dislocation. Tricompartmental osteoarthritis of the knee, suboptimally violated secondary to positioning however appears to be moderate. Trace knee joint effusion. IMPRESSION: No acute fracture or dislocation. ACT 112: Negative or not required by law. The above report was generated using voice recognition software. It may contain grammatical, syntax o r spelling errors. Electronically signed by: Joni Grace M.D. 11/29/2022 7:12 AM
--- NOTE | 2022-11-29 07:18 | Ultrasound Report ---
US venous doppler LE RT HISTORY: 52 years-old Female right thigh pain acute pain and swelling of the right lower extremity COMPARISON: None TECHNIQUE: Multiple real-time sonographic images of the right lower extremity deep venous structures were obtained assessing grayscale appearance, color and spectral flow. FINDINGS: Normal flow, compressibility, phasicity and augmentation. Limited exam secondary to patient body habi tus. IMPRESSION: No sonographic evidence of deep venous thrombosis. ACT 112: Negative or not required by law. The above report was generated using voice recognition software. It may contain grammatical, syntax o r spelling errors. Electronically signed by: Joni Grace M.D. 11/29/2022 7:17 AM
[2022-11-29] MEDS ORDERED: OPTIRAY 320 100ml IV ONE (07:35)
--- NOTE | 2022-11-29 08:01 | CT Scan Report ---
ABDOMEN AND PELVIS CT WITH IV CONTRAST CT DOSE: 1218.46 mGycm HISTORY: Acute generalized abdominal pain diffuse abdominal and back pain TECHNIQUE: Multiaxial CT images of the abdomen and pelvis were performed following the IV administrat ion of 86 cc of Optiray, A dose lowering technique was utilized adhering to the principles of ALARA. COMPARISON STUDY: None. FINDINGS: Limited exam secondary to patient body habitus with morbid obesity. Clear lung bases. No pn eumatosis or pneumoperitoneum. Unremarkable spleen, pancreas and right adrenal gland. Indeterminate s oft tissue attenuating 1.7 cm left adrenal gland nodule. Mild gallbladder distention. Unremarkable li jessy. There are two peripherally calcified splenic artery aneurysms measuring 1.6 and 1.0 cm respectiv miguel ángel. 2.0 cm left renal sinus cyst. No ureteral calculi or hydronephrosis. Areas of increased attenuation n oted within the renal collecting system suggestive of excreted contrast. Tiny nonobstructing calculi could appear similarly. Unremarkable urinary bladder. Mild pelvic floor relaxation. Uterus and adnexa are unremarkable. Aorta and IVC are within normal limits. No lymphadenopathy identified. Mild distal esophageal wall thickening with small hiatal hernia. No bowel obstruction or bowel wall t hickening. Mild to moderate colonic fecal retention with several stool filled loops of small bowel. N oninflamed appendix. No ascites or mesenteric inflammation. Unremarkable soft tissues. Moderate osteo porosis of the hips with apparent partial bony fusion bilaterally. No acute fracture. IMPRESSION: 1. No acute intra-abdominal or intrapelvic abnormality identified. 2. No bowel obstruction or bowel wall thickening. 3. Mild to moderate colonic fecal retention. 4. Incidental findings as above. ACT 112: Negative or not required by law. The above report was generated using voice recognition software. It may contain grammatical, syntax o r spelling errors. Electronically signed by: Joni Grace M.D. 11/29/2022 7:59 AM
[2022-11-29] MEDS ORDERED: POTASSIUM CHLORIDE CRTAB 20 MEQ TABCR PO STA (08:09)
[2022-11-29 08:46] LABS: Magnesium 1.5 mg/dl (1.7-2.4)
--- NOTE | 2022-11-29 08:46 | History & Physical Report ---
Date of Service November 29, 2022 Assessment & Plan (1) Acute pain of right thigh: Plan: Reportedly acute-onset pain x~1 day, no preceding trauma or injury. CT A/P, right LE venous US, XR femur/pelvix unremarkable, and distribution/character of pain as well as exam findings are most consistent with a quadriceps strain (likely vastus lateralis), which this patient (with morbid obesity) would certainly be at risk for. However given mildly elevated WBC of 10.88 and CRP 1.71, deep infection vs auto-immune/inflammatory disorder is a possibility. - admit to floor for observation - check non-vascular US of right thigh - give Flexeril 5mg now, with PRN order as well - graduated PRN pain regimen: Tylenol 1g IV Q8H and Flexeril 5mg TID for mild pain; Oxycodone 5mg Q4H for severe pain - consult PT/OT (2) Morbid obesity: Plan: BMI 53.6, with high risk for muscle strains and ambulatory dysfunction. - PT/OT as stated above - consulted rn acute - check A1c and fasting lipids in AM - consider GLP-1 +/- weight management consultation - defer to PCP (3) Constipation: Plan: Oaci-pj-pkczrjko fecal retention per CT A/P. Patient reports regular/soft BMs nearly every day, and her pain is largely localized to anterior right thigh so doubt this is contributing. - ordered Miralax 17gm now and then ordered PRN, especially as patient has received several opioid pain medications (4) Hypomagnesemia: Plan: Mg 1.5 - replete with Mag sulfate 2gm IV. Trend in AM (5) Hypokalemia: Plan: K 3.0, with hypomagnesemia contributing, and this may be contributing to constipation - replete with KCl 60mEq, and trend in AM (6) Hypertension: Plan: Normotensive, controlled. - continue home HCTZ Plan FEN/GI: regular diet DVT Prophylaxis: Lovenox 40mg IV BID Code Status: full code Disposition: med/surg, PT/OT consulted History of Present Illness Chief Complaint: anterior right thigh pain Primary Care Provider: Kathleen Alfaro MD Isaac Sanderson is a 52yo female with PMHx significant for HTN, venous stasis dermatitis and morbid obesity (BMI 53.6) who presented to [facility] ED on 11/29 for acute-onset right anterior thigh pain that started yesterday while she was sitting down and watching TV. Reports onset of "more than 10/10" right thigh pain, but unable to describe if the pain is sharp or dull and reports that her "whole thigh just hurts". Denies radiating pain from back/buttocks into thigh. Denies numbness. Reports she is weak due to significant pain with any movement of the thigh or trial of ambulation, however reports the thigh pain is [id number] when she is sitting still. On further questioning patient reports the pain may have been present for longer than 1 day - unsure. Patient denies previous thigh pain, but does have chronic low back pain and buttock pains that make it easier for her to sit and sleep in her recliner rather than in bed. Patient denies recent changes to medications. Has not needed strong pain medications in the past other than when she had cellulitis years ago. Denies alcohol/smoking/drug use. 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 Proficient in ADLs/iADLs, lives alone. In the ED the patient was hemodynamically stable on room air. Labs significant for WBC 10.88 (neutrophilic predominance, no left shift), Hgb 11.3, K 3.0, BSG 135, Mg 1.5, CRP 1.71, procalcitonin <.05. Pelvis XR and right femur XR without fracture or abnormality. Right LE venous duplex without DVT. CT A/P with [id number] fecal retention but otherwise WNL. In the ED the patient received Morphine 6mg IV x2 without improvement in pain, then received Dilaudid 1mg IV with improvement but then pain reportedly returned after ~1 hour. Patient with significantly antalgic gait favoring her right side and with limited mobility. Allergies Allergy/AdvReac Type Severity Reaction Status Date / Time Penicillins Allergy Mild "ACTED Verified 11/29/22 11:32 FUNNY" A CHILD Home Medications Medication Instructions Recorded Confirmed Type cyanocobalamin (vitamin B-12) 1,000 mcg sublingual QAM 01/11/19 11/29/22 History 1,000 mcg sublingual tablet clotrimazole-betamethasone 1 1 appln topical BID PRN flare ups 02/05/20 11/29/22 History %-0.05 % topical cream hydrochlorothiazide 25 mg tablet 25 mg PO DAILY #90 tabs 01/17/22 11/29/22 Rx clindamycin HCl 300 mg capsule 300 mg PO BID #60 caps 06/03/22 11/29/22 Rx acetaminophen 500 mg tablet 1,000 mg PO Q6H PRN Pain 11/29/22 11/29/22 History (Tylenol Extra Strength) Past Med/Surg History Medical History (Updated 11/29/22 @ 09:47 by Isidoro Kent MD) Hypertension Impaired fasting glucose Morbid obesity Recurrent cellulitis of lower extremity Venous stasis of both lower extremities Family History (Updated 06/03/22 @ 12:33 by PARVIZ Marte) Father Cerebral arterial aneurysm Emphysema, unspecified Mother Skin cancer Pulmonary embolism Other No pertinent family history in first degree relatives Denies family history of Ovarian cancer Breast cancer Colorectal cancer Social History (Updated 06/03/22 @ 12:32 by PARVIZ Marte) Smoking Status: Never smoker Second Hand Exposure: No; Do You Dip or Chew Tobacco: No; Tobacco Cessation Education Requested by Patient: No Hx Alcohol Use: No Hx Substance Use: No Preferred Language: Frisian Communication Ability: Effective Visual Impairment: No Limitations Hearing Ability: Normal Sand Caster Required: No Beliefs That Will Affect Care: None marital status: Single Current Living Situation: Alone current occupational status: employed Other Information That Helps Us Care for You: No Feels Safe at Home: Yes Safety Concerns: Feels Safe At This Time caffeine: Yes Dental Care, Regularly: No Physical Activity Frequency: Does not Exercise Seatbelt Use: always Assistive Devices: Cane Review of Systems Review of Systems: All systems reviewed & are unremarkable except as noted in HPI & below Physical Exam Physical Exam: General: A&Ox3. NAD. Cooperative. Morbidly obese. HEENT: Atraumatic, normocephalic. Pulm: CTAB A&P. -wheezes, -rales, -rhonchi. Symmetrical chest rise. No increase work of breathing. No respiratory distress. Cardiac: RRR, -mrg. Radial pulses intact and symmetrical. Abdominal: soft, protuberant but non-distended, non-tender, BS x 4 Lower extremities: generalized pain to deep palpation most prominent near proximal right vastus lateralis muscle and with improving pain towards insertion. No thigh/abdomen/back rash or erythema. Thighs equal in size. Patient reports significant pain with attempt of active hip flexion and active knee extension due to thigh pain; passive ROM > active ROM. Sensation to soft touch intact in bilateral LEs. Back: no point tenderness of spinous processes. Pain to deep palpation over piriformis and right paraspinal muscles. Gait: Antalgic, favoring right side Results & Data Results & Data Vital Signs (Past 12 Hours) Vital Signs Temp Pulse Pulse Resp BP BP Pulse Ox 11/29/22 07:42 74 22 139/77 95 11/29/22 05:01 72 23 97 11/29/22 05:01 151/95 H 11/29/22 05:00 70 18 94 11/29/22 04:31 67 25 H 98 11/29/22 04:31 153/119 H 11/29/22 04:30 65 15 98 11/29/22 04:16 67 13 11/29/22 04:22 67 11/29/22 03:59 36.9 C 78 18 177/89 H 100 O2 Del Method 11/29/22 07:42 Room Air 11/29/22 05:01 11/29/22 05:01 11/29/22 05:00 11/29/22 04:31 11/29/22 04:31 11/29/22 04:30 11/29/22 04:16 11/29/22 04:22 11/29/22 03:59 Room Air Supervising Physician Co-Signing Physician Notes I personally examined the patient and verified all null points of history and exam, discussed case, and agree with decision making with Dr Kent Thigh pain doing better than when first seen this morning by resident team and students. Right lateral thigh pain, a little bit anterior and medial as well. Muscle relaxant helped Vitals noted, in general she is awake and alert pleasant no distress. HEENT normocephalic atraumatic mucous membranes moist. Breathing unlabored no accessory muscle use good effort. Right lateral thigh shows no rashes no vesicles no lesions at all. Tender in the region of her lateral quadricep, has some distal quad/prepatellar pain with extension (passive) of her leg, no straight leg raise pain radiation to her back, however. LAS type OMT done with some change in tissue texture. Patient tolerated well. Intractable thigh painfortunately appears to be predominantly, if not entirely, biomechanical. Discussed that sometimes prior to a shingles eruption people can have biomechanical type painbut I doubt this will be the case. At the same time vigilanceboth here in the hospital and once homeif the rash were to blossom. Manage as muscularsymptomatic care, muscle relaxants, OMT, Voltaren gel, etc. Home once doing better. DVT proph - lovenox Resident Activity Tracking Resident Involvement: Resident Care Provided Care Provided: Adult Hospital Medicine
[2022-11-29] MEDS ORDERED: CYCLOBENZAPRINE HCL 5 MG TAB PO STA (09:11)
[2022-11-29 09:14] LABS: C Reactive Protein 1.71 mg/dl (0-0.5)
[2022-11-29] MEDS: MAGNESIUM SULFATE / D5W 1 GM/100 ML BAG IV SCH ×2 (09:17→10:11)
[2022-11-29] MEDS ORDERED: POLYETHYLENE (MIRALAX) 17 GM PACK PO STA (09:38)
--- NOTE | 2022-11-29 10:47 | Ultrasound Report ---
ULTRASOUND RIGHT LOWER EXTREMITY NONVASCULAR CLINICAL HISTORY: Right thigh pain. COMPARISON STUDY: No priors. FINDINGS: Real-time manriquez scale sonography of the soft tissues of the right thigh is performed at the indicated site of interest. No sonographic abnormality is seen at this site. There is no mass lesion or fluid collection. IMPRESSION: No sonographic abnormality is seen in the soft tissues of the right thigh at the indicate d site of interest. Dictated: 11/29/2022 10:23 AM Transcribed: 11/29/2022 10:25 AM [email or web address] [id number] [email or web address] Electronically signed by: Tee Doty M.D. 11/29/2022 10:46 AM
[2022-11-29] MEDS ORDERED: ONDANSETRON INJ 2 MG/ML 2 ML VIAL IV PRN (12:11)
[2022-11-29] MEDS ORDERED: ACETAMINOPHEN 500 MG TAB PO PRN (12:11)
[2022-11-29] MEDS ORDERED: CLOTRIMAZOLE/BETAMETHASONE CR 15 GM TUBE EXT PRN (12:11)
[2022-11-29] MEDS ORDERED: POLYETHYLENE (MIRALAX) 17 GM PACK PO PRN (12:11)
[2022-11-29] MEDS: oxyCODONE HCL IR 5 MG TAB (IMMEDIATE RELEASE) PO PRN ×2 (12:25→19:51)
--- NOTE | 2022-11-29 15:45 | Billing Data ---
Date of Service November 29, 2022 Coding Level of Care Code 82157 INT INP/OBS CARE
[2022-11-29] MEDS: ENOXAPARIN INJ 40 MG/0.4 ML SYR SQ SCH ×2 (15:57→22:04)
[2022-11-29] MEDS: CYCLOBENZAPRINE HCL 5 MG TAB PO PRN (15:58)
[2022-11-29 16:35] LABS: Calcium 8.8 mg/dl (8.6-10.3); Creatinine Clr Calc Pharmacy 164.1 ml/min; Est GFR (African American) 123.2 ml/min; Est GFR (Non-African American) 106.3 ml/min; Potassium 3.7 mmol/L (3.5-5.1)
[2022-11-29] MEDS: DICLOFENAC SOD 1% GEL 100 GM TUBE EXT SCH ×2 (18:03→22:04)
[2022-11-30] MEDS: oxyCODONE HCL IR 5 MG TAB (IMMEDIATE RELEASE) PO PRN (00:45)
[2022-11-30 07:07] LABS: Basophils # (auto) 0.01 K/uL (0-0.2); Basophils % (auto) 0.1 %; Eosinophils # (auto) 0.04 K/uL (0-0.50); Eosinophils % (auto) 0.6 %; Hematocrit (blood only) 33.1 % (37.0-47.0); Hemoglobin 10.8 g/dl (12.0-16.0); Immature Granulocytes # (auto) 0.03 K/uL (0.01-0.20); Immature Granulocytes % (auto) 0.4 %; Mean Corpuscular Hemoglobin 27.7 pg (25.0-34.0); Mean Corpuscular Hgb Conc 32.6 g/dL (32.0-36.0); Mean Corpuscular Volume 84.9 fL (80.0-100.0); Mean Platelet Volume 10.1 fL (9.4-12.4); Monocytes # (auto) 0.56 K/uL (0.11-0.59); Monocytes % (auto) 7.9 %; Neutrophils # (auto) 4.73 K/uL (1.40-6.50); Platelet Count 265 K/uL (130-400); RDW Coefficient of Variation 15.7 % (11.5-14.5); RDW Standard Deviation 48.3 fL (36.4-46.3); White Blood Count 7.07 K/ul (4.8-10.8)
[2022-11-30 07:17] LABS: BUN Creatinine Ratio 23.8 (10-20); Calcium 8.7 mg/dl (8.6-10.3); Chol HDL Ratio 2.7 (0-5); Creatinine Clr Calc Pharmacy 156.2 ml/min; Est GFR (African American) 121.2 ml/min; Est GFR (Non-African American) 104.6 ml/min; Potassium 3.5 mmol/L (3.5-5.1)
[2022-11-30] MEDS: CYCLOBENZAPRINE HCL 5 MG TAB PO PRN ×2 (07:56→17:55)
[2022-11-30] MEDS: DICLOFENAC SOD 1% GEL 100 GM TUBE EXT SCH ×4 (07:56→22:36)
[2022-11-30] MEDS: hydroCHLOROthiazide 25 MG TAB PO SCH (07:56)
[2022-11-30] MEDS: ENOXAPARIN INJ 40 MG/0.4 ML SYR SQ SCH ×2 (07:56→21:14)
--- NOTE | 2022-11-30 08:58 | Hospitalist Progress Note ---
Date of Service November 30, 2022 Assessment & Plan (1) Acute pain of right thigh: Plan: Pt is a 52 yo female with PMH of morbid obesity, HTN, and venous stasis presenting with acute right thigh pain w/o injury/trauma. Acute right thigh pain - XR femur/pelvis neg, vascular and nonvascular US neg - suspect quadricep muscle strain - continue pain control with tylenol 1000 mg q8hr scheduled, ibuprofen 800 mg TID scheduled, flexeril 5 mg TID PRN, and oxycodone 5 mg q4hr PRN - consult PT/OT Morbid obesity - BMI 53.6 - PT/OT as stated above - consulted software solutions architect - lipids WNL, A1c 5.7% (stable from 07/2020) - recommend consideration of GLP-1 +/- weight management consultation as outpatient Constipation - pkrp-tw-rcbrvrtv fecal retention per CTAP - pt reports regular/soft BMs nearly every day, and her pain is largely localized to anterior right thigh so doubt this is contributing - continue miralax daily PRN Hypomagnesemia - Mg 1.5, repleted - repeat WNL Hypokalemia - K 3.0, repleted - repeat WNL Hypertension - continue home HCTZ Diet: regular diet DVT ppx: Lovenox 40mg IV BID Code: full code Disposition: med/surg, PT/OT consulted (2) Morbid obesity: (3) Constipation: (4) Hypomagnesemia: (5) Hypokalemia: (6) Hypertension: Admission and Anticipated Discharge Date Admission Date: November 29, 2022 Supervising Physician Co-Signing Physician Notes I personally examined the patient and verified all null points of history and exam, discussed case, and agree with decision making with Dr Mcdaniels Still hurting a good bit. Talking with therapy who noted they were going to come back later for actual intervention. Vitals noted, in general she is in no distress sitting in a chair. Breathing unlabored no accessory muscle use good effort. Skin without rashes pallor or icterus. Intractable thigh painfortunately appears to be predominantly, if not entirely, biomechanical. Thus far no shingles eruptiondoubt there will be, but maintain vigilance. Also doubt any muscle tear, but if she fails to progress with therapy, can consider MRI. In the meantime, continue symptomatic care/supportive care/pain control/therapy, periodic OMT. May need rehab. Otherwise as above. Subjective Pt states her pain is still present so much so that the patient cannot walk/get around effectively. She has trouble lifting her right leg. Her pain is still localized to the right anterior thigh. No new symptoms of SOB, chest pain, or lower leg pains. Pt states the muscle relaxer really helps her pain. Review of Systems Review of Systems: As per HPI Physical Exam 2 Physical Exam: Constitutional: obese, no acute distress HEENT: normocephalic, no conjunctival injection CV: RRR, no murmur, no LE edema Respiratory: CTA bilaterally. No rhonchi, wheezes, or crackles. No increased work of breathing GI: soft, nondistended, nontender, + bowel sounds MSK: no gross deformities noted, right anterior thigh tender to deep palpation, passive and active ROM of right leg limited d/t pain Skin: brawny induration present on bilateral LE extremities extending to mid calf Neuro: alert, oriented, no FND noted Psych: mood and affect congruent Results & Data Results & Data Vital Signs (Past 12 Hours) Vital Signs Temp Pulse Resp BP Pulse Ox O2 Del Method 11/30/22 07:45 37.1 C 69 18 136/82 100 Room Air 11/29/22 21:50 36.7 C 75 18 134/78 98 Room Air Resident Activity Tracking Resident Involvement: Resident Care Provided Care Provided: Adult Hospital Medicine
[2022-11-30 09:59] LABS: Estimated Average Glucose 117 mg/dl; Hemoglobin A1C 5.7 % (4.5-5.6)
[2022-11-30] MEDS: ACETAMINOPHEN 500 MG TAB PO SCH ×2 (11:51→22:36)
--- NOTE | 2022-11-30 13:11 | Billing Data ---
Date of Service November 30, 2022 Coding Level of Care Code 42698 SUB INP/OBS CARE
[2022-11-30] MEDS: IBUPROFEN 800 MG TAB PO SCH ×2 (14:16→21:14)
[2022-12-01] MEDS: ACETAMINOPHEN 500 MG TAB PO SCH ×2 (05:42→13:11)
[2022-12-01] MEDS: ENOXAPARIN INJ 40 MG/0.4 ML SYR SQ SCH (09:00)
[2022-12-01] MEDS: DICLOFENAC SOD 1% GEL 100 GM TUBE EXT SCH ×2 (09:00→12:43)
[2022-12-01] MEDS: IBUPROFEN 800 MG TAB PO SCH (09:01)
[2022-12-01] MEDS: hydroCHLOROthiazide 25 MG TAB PO SCH (09:01)
--- NOTE | 2022-12-01 09:41 | Discharge Summary ---
Date of Service December 01, 2022 Admission HPI Per Admitting Provider Isaac Sanderson is a 52yo female with PMHx significant for HTN, venous stasis dermatitis and morbid obesity (BMI 53.6) who presented to [facility] ED on 11/29 for acute-onset right anterior thigh pain that started yesterday while she was sitting down and watching TV. Reports onset of "more than 10/10" right thigh pain, but unable to describe if the pain is sharp or dull and reports that her "whole thigh just hurts". Denies radiating pain from back/buttocks into thigh. Denies numbness. Reports she is weak due to significant pain with any movement of the thigh or trial of ambulation, however reports the thigh pain is [id number] when she is sitting still. On further questioning patient reports the pain may have been present for longer than 1 day - unsure. Patient denies previous thigh pain, but does have chronic low back pain and buttock pains that make it easier for her to sit and sleep in her recliner rather than in bed. Patient denies recent changes to medications. Has not needed strong pain medications in the past other than when she had cellulitis years ago. Denies alcohol/smoking/drug use. 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 Proficient in ADLs/iADLs, lives alone. In the ED the patient was hemodynamically stable on room air. Labs significant for WBC 10.88 (neutrophilic predominance, no left shift), Hgb 11.3, K 3.0, BSG 135, Mg 1.5, CRP 1.71, procalcitonin <.05. Pelvis XR and right femur XR without fracture or abnormality. Right LE venous duplex without DVT. CT A/P with [id number] fecal retention but otherwise WNL. In the ED the patient received Morphine 6mg IV x2 without improvement in pain, then received Dilaudid 1mg IV with improvement but then pain reportedly returned after ~1 hour. Patient with significantly antalgic gait favoring her right side and with limited mobility. Admission Exam Per Admitting Provider General: A&Ox3. NAD. Cooperative. Morbidly obese. HEENT: Atraumatic, normocephalic. Pulm: CTAB A&P. -wheezes, -rales, -rhonchi. Symmetrical chest rise. No increase work of breathing. No respiratory distress. Cardiac: RRR, -mrg. Radial pulses intact and symmetrical. Abdominal: soft, protuberant but non-distended, non-tender, BS x 4 Lower extremities: generalized pain to deep palpation most prominent near proximal right vastus lateralis muscle and with improving pain towards insertion. No thigh/abdomen/back rash or erythema. Thighs equal in size. Patient reports significant pain with attempt of active hip flexion and active knee extension due to thigh pain; passive ROM > active ROM. Sensation to soft touch intact in bilateral LEs. Back: no point tenderness of spinous processes. Pain to deep palpation over piriformis and right paraspinal muscles. Gait: Antalgic, favoring right side Principal Diagnosis right quadricep muscle strain Discharge Exam Constitutional: obese, no acute distress HEENT: normocephalic, no conjunctival injection CV: regular rhythm, no murmur, no LE edema Respiratory: Clear to auscultation bilaterally. No rhonchi, wheezes, or crackles. No increased work of breathing MSK: no gross deformities noted, tender upon deep palpation of right anterior thigh, right leg ROM increased from yesterday Skin: warm, dry, no rashes Neuro: alert, oriented, no FND noted Discharge Data Allergies Allergy/AdvReac Type Severity Reaction Status Date / Time Penicillins Allergy Mild "ACTED Verified 11/29/22 11:32 FUNNY" A CHILD Consultations 11/29/22 07:48 ED Decision to Admit Stat Ordered Studies 11/29/2022 Femur/pelvis xray IMPRESSION: No acute fracture or dislocation. 11/29/22 05:06 US venous doppler LE RT Stat IMPRESSION: No sonographic evidence of deep venous thrombosis. 11/29/22 06:53 CT abd pelvis IV con only Stat IMPRESSION: 1. No acute intra-abdominal or intrapelvic abnormality identified. 2. No bowel obstruction or bowel wall thickening. 3. Mild to moderate colonic fecal retention. 4. Incidental findings as above. 11/29/22 08:41 US leg [US extremity non-vascular ltd] Stat IMPRESSION: No sonographic abnormality is seen in the soft tissues of the right thigh at the indicated site of interest. Hospital Course (1) Acute pain of right thigh: Pt is a 52 yo female with PMH of morbid obesity, HTN, and venous stasis presenting with acute right thigh pain w/o injury/trauma. 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; pt not interested in lifestyle changes at this point; pt made aware of outpatient nutrition services - lipids WNL, A1c 5.7% (stable from 07/2020) - recommend consideration of GLP-1 +/- weight management consultation as outpatient Constipation - iujt-xg-lwmlhyiu fecal retention per CTAP - pt reports regular/soft BMs nearly every day; not related to her pain requiring admission - continue miralax daily PRN Hypomagnesemia - Mg 1.5, repleted - repeat WNL Hypokalemia - K 3.0, repleted - repeat WNL Hypertension - continue home HCTZ Diet: regular diet DVT ppx: Lovenox 40mg IV BID Code: full code Disposition: home w/ outpatient PT (2) Morbid obesity: (3) Constipation: (4) Hypomagnesemia: (5) Hypokalemia: (6) Hypertension: Total Time Total Time Spent Total Time Spent (In Minutes): <30 Discharge Plan Discharge Items Patient Disposition: Home - Self-Care Reason For Visit: HIP/KNEE PAIN Discharge Diagnosis: quadriceps muscular strain Activity: Per Instructions section Non-emergency contact: Primary Care Provider Call non-emergency contact if: you have any medication questions and your symptoms worsen Follow-up/Referrals: Kathleen Alfaro MD [Primary Care Provider] - 12/06/22 2:00 pm Diet: Regular Addtl Attending Provider Instructions: You were admitted to the hospital for right thigh/hip pain. You were treated with pain medications. A leg/hip xray was negative for any acute fractures. An ultrasound performed to look for blood clots was also negative. There were no signs of infection or abscess seen on ultrasound. A CT scan of your abdomen showed signs of mild constipation but was otherwise normal. After this workup, it was determined that your pain is most likely from a muscle strain. You have also been given a prescription for outpatient physical therapy. You may take this script to the therapy facility of your choice. A discharge summary will be sent to your primary care physician to ensure continuity of care. Please bring this discharge summary with you to your next office appointment so that your provider can review it at that time. Medications: Your medication list has been reviewed and reconciled upon discharge to ensure accuracy and continuity of care. An updated list of all your medications is included with your hospital discharge paperwork. Please review this list closely and make note of any changes to your medications. - You should continue to take medications to help alleviate your pain. You may take Tylenol 1,000 mg every 6 hours as needed. You may take ibuprofen 800 mg three times per day (about every 8 hours). These are the two medications that helped you most in the hospital. Discuss continuation of this medication with your primary care doctor. - You have also been prescribed flexeril which is a muscle relaxer. This can be taken three times per day as needed. Follow up appointments: - Make a follow up appointment with your PCP within the next week. It is very important that you follow up with them shortly after discharge from the hospital. - Keep all of your follow up appointments as already scheduled. If you cannot make an appointment, notify your provider. CONTACT YOUR PRIMARY CARE PROVIDER if you experience any of the following: - Difficulty following your treatment plan - Difficulty taking any of your medications CALL 911 OR GO TO THE EMERGENCY DEPARTMENT if you experience any of the following: - Sudden, severe abdominal pain or nausea/vomiting - Severe chest pain or chest pain that radiates to your jaw or arm - Sudden, severe shortness of breath or difficulty breathing Pending Studies at Discharge: No Stand-Alone Forms: My [facility] [place], Smoking Cessation Medications and DC Order Prescriptions: New ibuprofen 800 mg Tablet 800 mg PO TID Qty: 21 0RF cyclobenzaprine 5 mg Tablet 5 mg PO TID PRN (Reason: muscle spasm) 5 Days Qty: 15 0RF diclofenac sodium [Voltaren Arthritis Pain] 1 % Gel 4 g EXT QID PRN (Reason: muscle pain) Qty: 100 0RF Continued hydrochlorothiazide 25 mg tablet 25 mg PO DAILY Qty: 90 3RF cyanocobalamin (vitamin B-12) 1,000 mcg tablet, sublingual 1,000 mcg SL QAM clotrimazole-betamethasone 1-0.05 % cream 1 appln TOP BID PRN (Reason: flare ups) clindamycin HCl 300 mg capsule 300 mg PO BID Qty: 60 5RF acetaminophen [Tylenol Extra Strength] 500 mg Tablet 1,000 mg PO Q6H PRN (Reason: Pain) Discharge Orders: Discharge Order (Routine); Ordered 12/01/22 Ordered By: Capri Cabello/Other Patient Handouts: Eating Heart-Healthy Foods Admission Data Admit Date/Time: 11/29/22 09:10 Attending Provider: Fran Stern Admit Provider: Isidoro Kent Primary Care Provider: Kathleen Alfaro Other Providers: Fran Stern Other Interventions: Discharge Summary Assessment (RN) Last Done: 12/01/22 13:32 Supervising Physician Co-Signing Physician Notes I personally examined the patient and verified all null points of history and exam, discussed case, and agree with decision making with Dr Mcdaniels Feeling good enough to go home. Pain improving. Vitals noted, in general she is in no distress sitting in a chair. Breathing unlabored no accessory muscle use good effort. Skin without rashes pallor or icterus. Intractable thigh painfortunately appears to be predominantly, if not entirely, biomechanical. Doing better. Safe for home. Outpatient PT. Med management. Resident Activity Tracking Resident Involvement: Resident Care Provided Care Provided: Adult Hospital Medicine
[2022-12-01] MEDS: CYCLOBENZAPRINE HCL 5 MG TAB PO PRN (12:44)
--- NOTE | 2022-12-01 17:37 | Billing Data ---
Date of Service December 01, 2022 Coding Level of Care Code 90825 IN/OBS DISCH 30 MIN/LESS
== END 2022-12-01 14:12 | disposition home or self-care (01) ==
LOC: ED 03:36 → 3W 03:36